=== PATIENT | male | born 1955 | race American Indian/Alaskan Native ===

== ENCOUNTER 2025-01-29 14:43 | Inpatient (IN) | payer OTHER, MEDICARE, SELFPAY ==
--- NOTE | 2025-01-29 14:45 | EKG_ITS ---
[facility] Test Date: 2025-01-29 Pat Name: BART RANDHAWA Department: Room: - Gender: Male Site Auditor: : 1955 Requested By: Taylor Julien Order Number: [id number] Reading MD: Taylor Julien Measurements Intervals [place] Rate: 134 P: 46 CA: 177 QRS: -49 QRSD: 94 T: 81 QT: 276 QTc: 413 Interpretive Statements SINUS TACHYCARDIA LEFT ANTERIOR FASCICULAR BLOCK [QRS AXIS <= -45, QR IN I, RS IN II] INFERIOR MYOCARDIAL INFARCTION , POSSIBLY ACUTE [40+ ms Q WAVE AND/OR ST/T ABNORMALITY IN II/aVF] ACUTE UT Compared to ECG 11/15/2023 08:09:35 Left anterior fascicular block now present Myocardial infarct finding still present /store/S0/[id number].pdf
--- NOTE | 2025-01-29 14:45 | PD.EDADULT ---
ED General RME/HPI General Stated complaint: STROKE Time Seen by Provider: 01/29/25 15:03 Arrival date/time: 01/29/25 14:43 RME / HPI RME / HPI narrative: DR. WALKER MAIN ED EVALUATION: 69 year old male presents to the Emergency Department [facility] from home with complaints of right sided weakness, mild slurred speech, and mild confusion per EMS. Last well known time was 0800 hours today. Per EMS, patient had normal pupils at scene but en route the left pupil got smaller. PMHx: Hypertension, stage 4 prostate cancer. Social Hx: No tobacco, alcohol, or substance use. Related Data Previous Rx's ?Medication ?Instructions ?Recorded aspirin 81 mg tablet,delayed 81 mg PO QDAY 30 days #30 tabs 02/01/25 release (Ecotrin Low Strength) atorvastatin 20 mg tablet 40 mg (2 x 20 mg) PO HS 30 days 02/01/25 #60 tabs gabapentin 400 mg capsule 400 mg PO TID 30 days #90 caps 02/01/25 sevelamer carbonate 800 mg tablet 800 mg PO TIDWM 30 days #90 tabs 02/01/25 vitamin B complex-vitamin C-folic 1 tab PO QDAY 30 days #30 tabs 02/01/25 acid 0.8 mg tablet (Nephro-Tristan) Allergies Allergy/AdvReac Type Severity Reaction Status Date / Time No Known Allergies Allergy Verified 03/17/22 07:04 Review of Systems Review of Systems Systems Reviewed: All systems reviewed, normal except as documented Past Medical History Past Medical History CARDIAC: Positive Hypertension GENITOURINARY: Positive Prostate Cancer and Benign Prostatic Hyperplasia (removed 6 years ago) MUSCULOSKELETAL: Positive Bone Cancer OTHER HISTORY: Positive Cancer and Prostate Cancer Social History SMOKING STATUS: Never smoker SUBSTANCE USE: does not use ALCOHOL: Never ED Exam Narrative Physical exam: GENERAL APPEARANCE: alert and oriented x 4, well-developed, well-nourished, no acute distress, smells like motor oil VITALS: All vitals were reviewed and the pulse ox is 98% on 2 L/min. HEENT: Normocephalic, atraumatic; anisocoria where the left pupil is 3 mm and the right pupil is 1 mm; mucous membranes pink, moist; oropharynx clear NECK: Supple LUNGS: CTABL; no wheezes, no rales, no rhonchi HEART: Regular rate, regular rhythm; normal S1, S2; no murmurs ABDOMEN: non distended; normal BS; soft, no tenderness, no guarding, no rebound; no masses, no organomegaly, no hernia BACK: no CVA tenderness EXTREMITIES: atraumatic; no edema NEUROLOGIC: awake; mild bilateral arm spasticity, difficulty following commands, no facial asymmetry PSYCHIATRIC: appropriate mood and affect SKIN: warm, dry, normal color; no rashes Course Course Course Narrative: 1442: Stroke alert initiated. Orders made at this time are congruent stroke protocol. 1519: Rectal temperature was 105.7 F. Sepsis alert initiated. Orders made at this time are congruent with ED Adult Sepsis Order List. Re-evaluation is to be completed. 1544: Fluids started. 1615: Sepsis reassessment performed consisting of lab review, vitals, physical exam including auscultation of heart, lungs, and visual evaluation of capillary refills, mucosal membranes and extremities. Quality Measures Suspected type of Stroke: Unknown at this time (no stroke, CTs negative) Last known well (date): 01/29/25 Last known well (time): 08:00 Tenecteplase given: Reason(s) TPA not given: Stroke severity too mild (non-disabling) not given stroke and Current suspected stage: sepsis Possible source: unknown Blood cultures ordered: yes Antibiotic ordered: Yes Pertinent labs: 01/29/25 01/29/25 14:50 14:56 Lactic Acid 2.1 H mMol/L (0.4-2.0) Procalcitonin 341.99 H ng/ml (0.0-0.49) sepsis Orders Category Date Time Status Bedside Blood Glucose NOW Care 01/29/25 14:45 Completed Fleece Tier NOW Care 01/29/25 14:45 Completed Continuous Pulse Oximetry NOW Care 01/29/25 14:45 Completed EKG (ED ONLY) *Do not use* NOW Care 01/29/25 14:45 Completed In and Out Catheter NEEDED Care 01/29/25 14:45 Completed Insert IV NOW Care 01/29/25 14:45 Completed NIH Stroke Scale now Care 01/29/25 14:45 Completed NPO NOW Care 01/29/25 14:45 Completed Nurse Swallow Screen x1 Care 01/29/25 14:45 Completed Consult to Neurology / Tele-Neurology Routine Cons 01/29/25 14:[address] angio stroke protocol Stat Exams 01/29/25 14:[address] stroke protocol Stat Exams 01/29/25 14:45 Completed EKG (ED Only) Stat Exams 01/29/25 14:45 Draft XR chest 1V portable Stat Exams 01/29/25 16:07 Completed Alcohol, Blood Medical Stat Lab 01/29/25 14:56 Completed Arterial Blood Gas Stat Lab 01/29/25 17:25 Completed B-Type Natriuretic Peptide Stat Lab 01/29/25 14:56 Completed Blood Culture (Lab) Stat Lab 01/29/25 16:43 Completed CBC Stat Lab 01/29/25 14:56 Completed Comprehensive Metabolic Panel Stat Lab 01/29/25 14:56 Completed Drug Screen,Urine Stat Lab 01/29/25 15:40 Completed Lactate (Lactic Acid) Stat Lab 01/29/25 14:50 Completed Magnesium Stat Lab 01/29/25 14:56 Completed Partial Thromboplastin Time Stat Lab 01/29/25 14:56 Completed Procalcitonin Stat Lab 01/29/25 14:56 Completed Prothrombin Time with INR Stat Lab 01/29/25 14:56 Completed Troponin I Stat Lab 01/29/25 14:56 Completed Urinalysis Stat Lab 01/29/25 15:40 Completed Urine Culture Stat Lab 01/29/25 15:40 Completed Acetaminophen Ivpb [Ofirmev Inj] Med 01/29/25 15:20 Discontinued 1,000 mg in 100 ml IV Q6HR Heparin* 1000 UNITS/ML- 10 ML [Heparin 1000 UNITS/ML- Med 01/29/25 17:01 Discontinued 10 ML] 1,700 unit INDWELLCAT X1 ONE Magnesium Sulfate 2 GM Ivpb [Magnesium Sulfate Ivpb] Med 01/29/25 17:16 Discontinued 2 gm in 50 ml IV X1 Ondansetron Inj [Zofran Inj] Med 01/29/25 14:45 Discontinued 4 mg IVP Q4HR PRN Piper/Tazo 3.375 gm Premix [Zosyn] Med 01/29/25 17:13 Discontinued 3.375 gm in 50 ml IV X1 Sodium Chloride 0.9% 1000 ml [Ns] 1,000 ml Med 01/29/25 15:08 Discontinued IV 999 mls/hr Vancomycin/Ns 1 gm Ivpb 200 ml Med 01/29/25 16:15 Discontinued IV X1 Vancomycin/Water 1Gm Ivpb 200 ml Med 01/29/25 16:08 Discontinued IV X1 Oxygen Delivery NOW RT 01/29/25 14:45 Completed Vital Signs Vital signs: Vital Signs Pulse Rate 122 H 01/29/25 15:48 Respiratory Rate 39 H 01/29/25 15:48 Pulse Oximetry (%) 98 01/29/25 15:48 Oxygen Flow Rate 2 01/29/25 15:48 Critical Care Time Critical Care Time Critical Care Time: Yes Total Critical Care Time (min.): 60 Attestation: The high probability of sudden, clinically significant deterioration in the patient?s condition required the highest level of my preparedness to intervene urgently. The services I provided to this patient were to treat and/or prevent clinically significant deterioration. Services included the following: chart data review, reviewing nursing notes and/or old charts, documentation time, regulatory consultant collaboration regarding findings and treatment options, medication orders and management, direct patient care, vital sign assessments and ordering, interpreting and reviewing diagnostic studies and lab tests. Aggregate critical care time includes only time during which I was engaged in work directly related to the patient?s care, as described above, whether at bedside or elsewhere in the Emergency Department. It did not include time spent performing other reported procedures or the services of residents, students, nurses or physician assistants. Discharge Plan Plan Patient Disposition: Admit Acute Care w/in Hospital Problem List Clinical Impression: Sepsis MDM Narrative MDM hospital course: I, Cee Doshi, am scribing for and in the presence of Dr. Walker. Clinical Information Provided by patient and EMS Medical Records Reviewed EMS Meds/Rx Considered, not Ordered None Labs/Rad/Tests considered, not Ordered None Chronic Illness/Social Conditions Add or document further as needed: Hypertension, stage 4 prostate cancer. EKG Interpretation EKG #1: Date/time of EK01/29/25 3:29 pm EKG interpretation: sinus tachycardia, rate 134, some baseline wander, little artifact, Q waves in 3 and AVF Lab Interpretation Labs: interpreted by me Lab(s) interpretation(s): Patient is septic; Lactic acid 2.1, Procalcitonin 341.99 Imaging Radiology reports / interpretation(s): Procedure(s): CT stroke protocol Accession Number(s): [id number] cc: Adriel Pfeiffer MD; Taylor Walker MD~ Examination: CT brain head without contrast. 2-D sagittal coronal reconstructions Date and time of exam:January 29, 2025 1450 hours INDICATIONS: Stroke alert, onset slurred speech altered mental status left-sided body weakness today COMPARISON: November 15, 2023 CTDI: vol (mGy):50.4 DLP: (mGycm):1061 Technique: Multiple CT axial sections of the brain have been obtained, 5 mm slice thickness. Contrast has not been administered. 2-D sagittal, coronal reconstructions have been obtained Low dose protocols were performed. One or more of the following dose reduction techniques were used; automated exposure control, adjustment of the mA and/or KV according to patient size, use of iterative reconstruction technique. Findings: No significant ventricular enlargement. Intra-axial or extra-axial hemorrhage density is not seen. No mass effect or midline shift Basal cisterns are not remarkable. Fourth ventricle is midline. Cranial vault intact. Impression: Negative for acute hemorrhage, mass effect or midline shift Dictated By: Adriel Pfeiffer MD Procedure(s): CT angio stroke protocol Accession Number(s): [id number] cc: Adriel Pfeiffer MD; Taylor Walker MD~ Examination: CTA carotids with intravenous contrast CTA brain, head with intravenous contrast. 2-D sagittal, coronal reconstructions. 3-D reconstructions. Exam date and time: January 29, 2025 1500 hours INDICATIONS: Stroke alert, onset slurred speech altered mental status left-sided body weakness today CTDI: vol (mGy) 21 DLP: (mGycm) 479 Technique: Multiple CTA axial brain, head carotid images post intravenous contrast injection 75 cc, [id number]. 2-D sagittal, coronal reconstructions. 3-D reconstructions, 3-D post processing including vascular maximum intensity projection images. Low dose protocols were performed. One or more of the following dose reduction techniques were used; automated exposure control, adjustment of the mA and/or KV according to patient size, use of iterative reconstruction technique. Findings: Images are degraded by patient motion Stellate parenchymal density in the left apex, 21 mm, which may represent scar formation Mediolateral dimension ascending thoracic aorta 4 cm Diffusely attenuated right vertebral artery no critical vertebral stenoses No significant common carotid carotid bifurcation or internal carotid artery stenoses No cerebral large vessel arterial occlusions or thrombus IMPRESSION: Stellate parenchymal density left apex 21 mm, recommend PA lateral chest follow-up Diffusely attenuated right vertebral artery no critical vertebral artery stenoses No cerebral large vessel arterial occlusions or thrombus Dictated By: Adriel Pfeiffer MD Medication Administration(s) Medication Administration History Discontinued Medications Acetaminophen (Acetaminophen 325 Mg Tablet) 650 mg PO Q6H PRN PRN Reason: Fever >100.3 or pain 1-3 Stop: 02/28/25 17:41 Last Admin: 02/03/25 17:52 Dose: 650 mg Documented By: Admin: 02/03/25 08:31 Dose: 650 mg Documented By: Admin: 02/03/25 02:08 Dose: 650 mg Documented By: Admin: 02/02/25 15:57 Dose: 650 mg Documented By: Admin: 02/02/25 08:22 Dose: 650 mg Documented By: Admin: 02/01/25 17:24 Dose: 650 mg Documented By: Admin: 01/31/25 12:34 Dose: 650 mg Documented By: Admin: 01/31/25 05:25 Dose: 650 mg Documented By: Admin: 01/30/25 17:15 Dose: 650 mg Documented By: AV Albuterol/Ipratropium (Albuterol/Ipratropium (Duoneb) Rt Karolina 3 Ml Nebu) 3 ml INH Q4HR PRN PRN Reason: SHORTNESS OF BREATH OR WHEEZE Stop: 02/28/25 17:41 Last Admin: 01/30/25 17:18 Dose: 3 ml Documented By: AA Aspirin (Aspirin Ec 81 Mg Tabec) 81 mg PO QDAY JENS Stop: 03/01/25 08:59 Last Admin: 02/07/25 11:27 Dose: 81 mg Documented By: Admin: 02/06/25 10:23 Dose: Not Given Documented By: LEROY Non-Admin Reason: NPO Admin: 02/05/25 09:52 Dose: 81 mg Documented By: Admin: 02/04/25 09:26 Dose: 81 mg Documented By: ATIYA(2) Admin: 02/03/25 08:14 Dose: 81 mg Documented By: Admin: 02/02/25 08:18 Dose: 81 mg Documented By: Admin: 02/01/25 09:25 Dose: 81 mg Documented By: Admin: 01/31/25 08:17 Dose: 81 mg Documented By: Admin: 01/30/25 10:17 Dose: 81 mg Documented By: AV Atorvastatin Calcium (Atorvastatin Calcium 20 Mg Tablet) 40 mg PO HS JENS Stop: 02/28/25 20:59 Last Admin: 02/06/25 21:50 Dose: 40 mg Documented By: Admin: 02/05/25 21:30 Dose: 40 mg Documented By: Admin: 02/04/25 20:45 Dose: 40 mg Documented By: MRWalt Admin: 02/03/25 21:28 Dose: 40 mg Documented By: Admin: 02/02/25 20:25 Dose: 40 mg Documented By: Admin: 02/01/25 21:17 Dose: 40 mg Documented By: (2) Admin: 01/31/25 21:56 Dose: 40 mg Documented By: Admin: 01/30/25 20:30 Dose: 40 mg Documented By: Admin: 01/30/25 00:04 Dose: 40 mg Documented By: PEDRO Atropine Sulfate (Atropine Sulf Inj 1 Mg/Ml Vial) Confirm Administered Dose 1 mg .ROUTE .STK-MED ONE Stop: 02/06/25 13:59 Last Admin: 02/06/25 15:30 Dose: Not Given Documented By: EG Non-Admin Reason: not needed Azithromycin (Azithromycin Inj 500 Mg Vial) Confirm Administered Dose 500 mg IV .STK-MED ONE Stop: 02/02/25 11:28 Last Admin: 02/02/25 12:40 Dose: Not Given Documented By: LH Non-Admin Reason: Duplicate Medication on eMAR Bismuth Subsalicylate (Bismuth Subsalicyl 1 Tablet (Pepto-Bismol)) 2 tab PO QDAY JENS Stop: 03/09/25 08:59 Last Admin: 02/07/25 11:28 Dose: 2 tab Documented By: KYLER Bismuth Subsalicylate (Bismuth Subsalicyl 1 Tablet (Pepto-Bismol)) 2 tab PO X1 ONE Stop: 02/06/25 10:26 Last Admin: 02/06/25 16:24 Dose: 2 tab Documented By: LEROY Citric Acid/Sodium Citrate (Citric Acid/Sodium Citr 15 Ml Udc (Bicitra)) 30 ml PO BID JENS Stop: 03/01/25 08:59 Last Admin: 02/07/25 10:56 Dose: Not Given Documented By: KYLER Non-Admin Reason: In HD; scheduled BID Admin: 02/06/25 21:50 Dose: 30 ml Documented By: Admin: 02/06/25 10:23 Dose: Not Given Documented By: LEROY Non-Admin Reason: NPO Admin: 02/05/25 21:31 Dose: 30 ml Documented By: Admin: 02/05/25 09:52 Dose: 30 ml Documented By: Admin: 02/04/25 20:45 Dose: 30 ml Documented By: Admin: 02/04/25 09:26 Dose: 30 ml Documented By: ATIYA(2) Admin: 02/03/25 21:28 Dose: 30 ml Documented By: Admin: 02/03/25 08:14 Dose: 30 ml Documented By: Admin: 02/02/25 20:25 Dose: 30 ml Documented By: Admin: 02/02/25 08:17 Dose: 30 ml Documented By: Admin: 02/01/25 21:17 Dose: 30 ml Documented By: (2) Admin: 02/01/25 09:24 Dose: 30 ml Documented By: Admin: 01/31/25 21:57 Dose: 30 ml Documented By: Admin: 01/31/25 08:23 Dose: 30 ml Documented By: Admin: 01/30/25 20:29 Dose: 30 ml Documented By: Admin: 01/30/25 10:16 Dose: 30 ml Documented By: LEI Comments: patient was lethargic in am Epoetin Afshin (Epoetin Afshin-Epbx Inj 10,000 Unit/Ml Vial (Esrd)) 10,000 unit SC X1 ONE Stop: 02/04/25 09:01 Last Admin: 02/04/25 09:33 Dose: 10,000 unit Documented By: ED Epoetin Afshin (Epoetin Afshin-Epbx Inj 10,000 Unit/Ml Vial (Non-Esrd)) 10,000 unit IV X1 ONE Stop: 02/07/25 09:01 Last Admin: 02/07/25 08:37 Dose: 10,000 unit Documented By: ED Fentanyl Citrate (Fentanyl Cit Inj 50 Mcg/Ml Amp 2ml) Confirm Administered Dose 100 mcg .ROUTE .STK-MED ONE Stop: 02/06/25 13:59 Last Admin: 02/06/25 15:31 Dose: Not Given Documented By: EG Non-Admin Reason: Duplicate Medication on eMAR Fentanyl Citrate (Fentanyl Cit Inj 50 Mcg/Ml Amp 2ml) 75 mcg IVP X1 ONE Stop: 02/06/25 14:31 Last Admin: 02/06/25 14:39 Dose: 75 mcg Documented By: EG Comments: see procedural sedation flow sheet for increments. under md supervision Fluconazole (Fluconazole 100 Mg Tablet) 400 mg PO QDAY [facility] Stop: 02/06/25 15:29 Last Admin: 02/01/25 09:25 Dose: 400 mg Documented By: Admin: 01/31/25 08:17 Dose: 400 mg Documented By: Admin: 01/30/25 17:10 Dose: 400 mg Documented By: AV Fluconazole (Fluconazole 100 Mg Tablet) 400 mg PO TUTHSA@1800 [facility] Stop: 02/09/25 17:59 Last Admin: 02/02/25 17:41 Dose: 400 mg Documented By: LH Fluconazole (Fluconazole 100 Mg Tablet) 400 mg PO Q24H [facility] Stop: 02/10/25 17:59 Last Admin: 02/03/25 17:52 Dose: 400 mg Documented By: LH Gabapentin (Gabapentin 100 Mg Capsule) 400 mg PO TID [facility] Stop: 02/28/25 21:59 Last Admin: 01/30/25 05:15 Dose: 400 mg Documented By: Admin: 01/30/25 00:04 Dose: 400 mg Documented By: CG Gabapentin 100 mg/ Gabapentin (300 mg) 400 mg PO TID [facility] Stop: 02/28/25 21:59 Last Admin: 02/04/25 05:23 Dose: 400 mg Documented By: MRWalt Admin: 02/03/25 21:28 Dose: 400 mg Documented By: Admin: 02/03/25 16:20 Dose: 400 mg Documented By: Admin: 02/03/25 05:35 Dose: 400 mg Documented By: Admin: 02/02/25 22:01 Dose: 400 mg Documented By: Admin: 02/02/25 15:55 Dose: 400 mg Documented By: Admin: 02/02/25 05:11 Dose: 400 mg Documented By: SA(2) Admin: 02/01/25 21:17 Dose: 400 mg Documented By: SA(2) Admin: 02/01/25 13:35 Dose: 400 mg Documented By: Admin: 02/01/25 05:17 Dose: 400 mg Documented By: Admin: 01/31/25 21:57 Dose: 400 mg Documented By: Admin: 01/31/25 15:21 Dose: 400 mg Documented By: LEI Comments: patient refused at 2pm, states that he wants to sleep Admin: 01/31/25 05:26 Dose: 400 mg Documented By: Admin: 01/30/25 22:13 Dose: 400 mg Documented By: Admin: 01/30/25 17:11 Dose: 400 mg Documented By: LEI Gabapentin (Gabapentin 100 Mg Capsule) 200 mg PO TID JENS Stop: 03/06/25 13:59 Gabapentin (Gabapentin 300 Mg Capsule) 300 mg PO DAILY [facility] Stop: 03/07/25 16:59 Gabapentin (Gabapentin 100 Mg Capsule) 400 mg PO TID JENS Stop: 03/07/25 05:59 Last Admin: 02/07/25 05:36 Dose: 400 mg Documented By: Admin: 02/06/25 21:50 Dose: 400 mg Documented By: Admin: 02/06/25 16:20 Dose: Not Given Documented By: LEROY Non-Admin Reason: Not In Room Admin: 02/06/25 08:39 Dose: Not Given Documented By: LEROY Non-Admin Reason: NPO Admin: 02/05/25 21:30 Dose: 400 mg Documented By: Admin: 02/05/25 14:01 Dose: 400 mg Documented By: Admin: 02/05/25 05:27 Dose: 400 mg Documented By: SANDIE Heparin Sodium (Beef Lung) (Heparin Sod Lock Syr 100 Unit/Ml) Confirm Administered Dose 500 unit .ROUTE .STK-MED ONE Stop: 02/06/25 14:23 Last Admin: 02/06/25 15:31 Dose: Not Given Documented By: EG Non-Admin Reason: Duplicate Medication on eMAR Heparin Sodium (Beef Lung) (Heparin Sod Lock Syr 100 Unit/Ml) 500 unit IV X1 ONE Stop: 02/06/25 14:31 Last Admin: 02/06/25 14:38 Dose: 500 unit Documented By: EG Comments: to sterile field Heparin Sodium (Porcine) (Heparin Sod Inj 1000 Unit/Ml Vial 10 Ml) 1,700 unit INDWELLCAT X1 ONE Stop: 01/29/25 17:02 Last Admin: 01/29/25 18:10 Dose: 1,700 unit Documented By: RD Co-signed By: DB Heparin Sodium (Porcine) (Heparin Sod Inj 5000 Unit/Ml Vial) 5,000 unit SC BID JENS Stop: 02/12/25 20:59 Last Admin: 01/30/25 00:04 Dose: 5,000 unit Documented By: CG Co-signed By: CB Heparin Sodium (Porcine) (Heparin Sod Inj 1000 Unit/Ml Vial 10 Ml) 3,300 unit INDWELLCAT X1 PRN PRN Reason: DIALYSIS Stop: 02/13/25 15:11 Last Admin: 02/01/25 09:27 Dose: 3,300 unit Documented By: MM Co-signed By: CS Admin: 01/31/25 11:06 Dose: 3,300 unit Documented By: MM Co-signed By: AV Heparin Sodium (Porcine) (Heparin Sod Inj 1000 Unit/Ml Vial) Confirm Administered Dose 5,000 unit .ROUTE .STK-MED ONE Stop: 02/06/25 14:23 Last Admin: 02/06/25 15:31 Dose: Not Given Documented By: EG Non-Admin Reason: Duplicate Medication on eMAR Heparin Sodium (Porcine) (Heparin Sod Inj 1000 Unit/Ml Vial) 4,400 unit INDWELLCAT X1 ONE Stop: 02/06/25 15:21 Last Admin: 02/06/25 15:39 Dose: 4,400 unit Documented By: EG Co-signed By: LS Heparin Sodium (Porcine) (Heparin Sod Inj 1000 Unit/Ml Vial 10 Ml) 4,400 unit INDWELLCAT X1 PRN PRN Reason: DIALYSIS Stop: 02/21/25 10:10 Hydromorphone HCl (Hydromorphone Inj 2 Mg/Ml Vial) 0.25 mg IVP Q2H PRN PRN Reason: BREAKTHROUGH PAIN Stop: 02/03/25 17:41 Last Admin: 01/30/25 20:43 Dose: 0.25 mg Documented By: Admin: 01/29/25 19:08 Dose: 0.25 mg Documented By: LESLY Hydromorphone HCl (Hydromorphone Inj 2 Mg/Ml Vial) 0.25 mg IVP Q4H PRN PRN Reason: BREAKTHROUGH PAIN Stop: 02/03/25 17:41 Sodium Chloride (Ns) 1,000 mls @ 999 mls/hr IV .Q1H1M ONE Stop: 01/29/25 16:08 Last Infusion: 01/29/25 16:46 Dose: Infused Documented By: Admin: 01/29/25 15:44 Dose: 999 mls/hr Documented By: JACQUELINE Acetaminophen (Ofirmev Inj) 1,000 mg in 100 mls @ 250 mls/hr IV Q6HR JENS Stop: 01/30/25 06:23 Last Admin: 01/30/25 05:15 Dose: 250 mls/hr Documented By: Infusion: 01/30/25 00:38 Dose: Infused Documented By: Admin: 01/30/25 00:14 Dose: 250 mls/hr Documented By: Infusion: 01/29/25 20:03 Dose: Infused Documented By: Admin: 01/29/25 19:08 Dose: 250 mls/hr Documented By: Infusion: 01/29/25 16:15 Dose: Infused Documented By: Admin: 01/29/25 15:41 Dose: 250 mls/hr Documented By: JACQUELINE Vancomycin HCl (Vancomycin/Water 1gm Ivpb) 200 mls @ 120 mls/hr IV X1 ONE Stop: 01/29/25 17:47 Last Admin: 01/29/25 18:11 Dose: Not Given Documented By: LESLY Non-Admin Reason: Cancelled by Provider Vancomycin/Sodium Chloride (Vancomycin/Ns 1 Gm Ivpb) 200 mls @ 120 mls/hr IV X1 ONE Stop: 01/29/25 17:54 Last Admin: 01/29/25 20:02 Dose: Not Given Documented By: LESLY Non-Admin Reason: Medication Not Available Piperacillin/Tazobactam/Dextrose (Zosyn) 3.375 gm in 50 mls @ 100 mls/hr IV X1 ONE Stop: 01/29/25 17:42 Last Infusion: 01/29/25 19:00 Dose: Infused Documented By: Admin: 01/29/25 18:10 Dose: 100 mls/hr Documented By: LESLY Magnesium Sulfate (Magnesium Sulfate Ivpb) 2 gm in 50 mls @ 25 mls/hr IV X1 ONE Stop: 01/29/25 19:15 Last Admin: 01/29/25 21:46 Dose: 25 mls/hr Documented By: CG Vancomycin/Sodium Chloride (Vancomycin/Ns 1 Gm Ivpb) 200 mls @ 120 mls/hr IV X1 ONE Stop: 01/30/25 11:39 Last Admin: 01/30/25 10:48 Dose: 120 mls/hr Documented By: AV Sodium Chloride (Ns) 250 mls @ 999 mls/hr IV .Q16M ONE Stop: 01/30/25 08:24 Last Admin: 01/30/25 08:10 Dose: 999 mls/hr Documented By: AV Piperacillin Sod/Tazobactam (Sod 4.5 gm/ Sodium Chloride) 100 mls @ 200 mls/hr IV Q12HR JENS Stop: 02/06/25 08:09 Last Admin: 01/31/25 21:58 Dose: 200 mls/hr Documented By: Infusion: 01/31/25 13:11 Dose: Infused Documented By: Admin: 01/31/25 12:41 Dose: 200 mls/hr Documented By: Infusion: 01/30/25 20:59 Dose: Infused Documented By: Admin: 01/30/25 20:29 Dose: 200 mls/hr Documented By: Infusion: 01/30/25 09:20 Dose: Infused Documented By: Admin: 01/30/25 08:50 Dose: 200 mls/hr Documented By: AV Sodium Chloride (Ns) 250 mls @ 999 mls/hr IV .Q16M ONE Stop: 01/30/25 08:59 Last Admin: 01/30/25 08:50 Dose: 999 mls/hr Documented By: AV Albumin Human (Albuminar-25 Ivpb) 25 gm in 100 mls @ 100 mls/hr IV PRN PRN PRN Reason: DIALYSIS Last Admin: 01/31/25 08:06 Dose: 100 mls/hr Documented By: Infusion: 01/30/25 16:18 Dose: Infused Documented By: Admin: 01/30/25 15:18 Dose: 100 mls/hr Documented By: ED Lactated Ringer's (Lactated Ringers) 1,000 mls @ 999 mls/hr IV .Q1H1M ONE Stop: 01/30/25 11:47 Last Admin: 01/30/25 10:49 Dose: 999 mls/hr Documented By: AV Ceftriaxone Sodium/Dextrose (Rocephin/D5w 2gm) 2 gm in 50 mls @ 100 mls/hr IV QDAY JENS Stop: 02/08/25 08:59 Last Admin: 02/02/25 10:49 Dose: 100 mls/hr Documented By: Infusion: 02/01/25 20:00 Dose: Infused Documented By: (2) Admin: 02/01/25 09:25 Dose: 100 mls/hr Documented By: CS Azithromycin 500 mg/ Sodium (Chloride) 250 mls @ 250 mls/hr IV QDAY JENS Stop: 02/09/25 09:43 Last Admin: 02/03/25 10:24 Dose: 250 mls/hr Documented By: Infusion: 02/02/25 12:40 Dose: Infused Documented By: Admin: 02/02/25 11:40 Dose: 250 mls/hr Documented By: THOMAS Piperacillin/Tazobactam/Dextrose (Zosyn) 3.375 gm in 50 mls @ 12.5 mls/hr IV Q12HR JENS Stop: 02/09/25 20:59 Last Admin: 02/03/25 08:14 Dose: 12.5 mls/hr Documented By: Infusion: 02/03/25 00:26 Dose: Infused Documented By: Admin: 02/02/25 20:26 Dose: 12.5 mls/hr Documented By: Piperacillin/Tazobactam/Dextrose (Zosyn) 3.375 gm in 50 mls @ 100 mls/hr IV X1 ONE Stop: 02/02/25 15:59 Last Admin: 02/02/25 15:55 Dose: 100 mls/hr Documented By: THOMAS Ceftriaxone Sodium/Dextrose (Rocephin/D5w 2gm) 2 gm in 50 mls @ 100 mls/hr IV Q24H [facility] Stop: 02/10/25 17:59 Last Admin: 02/05/25 17:09 Dose: 100 mls/hr Documented By: Infusion: 02/04/25 17:53 Dose: Infused Documented By: Admin: 02/04/25 17:23 Dose: 100 mls/hr Documented By: ATIYA(2) Infusion: 02/03/25 18:23 Dose: Infused Documented By: ATIYA(2) Admin: 02/03/25 17:53 Dose: 100 mls/hr Documented By: THOMAS Levofloxacin (Levofloxacin 250 Mg Tablet) 250 mg PO QDAY [facility] Stop: 02/11/25 12:00 Last Admin: 02/07/25 11:28 Dose: 250 mg Documented By: KYLER Lidocaine HCl (Lidocaine Inj Pf 1% 30 Ml Vial) Confirm Administered Dose 30 ml .ROUTE .STK-MED ONE Stop: 02/06/25 13:58 Last Admin: 02/06/25 15:30 Dose: Not Given Documented By: EG Non-Admin Reason: Duplicate Medication on eMAR Lidocaine HCl (Lidocaine Inj Pf 1% 30 Ml Vial) 10 ml INFL X1 ONE Stop: 02/06/25 14:31 Last Admin: 02/06/25 14:40 Dose: 10 ml Documented By: EDDIE Comments: administered by dr. pfeiffer Naloxone HCl (Naloxone Inj 0.4 Mg/Ml Vial) Confirm Administered Dose 0.4 mg .ROUTE .STK-MED ONE Stop: 02/06/25 13:59 Last Admin: 02/06/25 15:31 Dose: Not Given Documented By: EG Non-Admin Reason: not needed Ondansetron HCl (Ondansetron Inj 2 Mg/Ml Inj 2 Ml) 4 mg IVP Q4HR PRN PRN Reason: NAUSEA OR VOMITING Stop: 02/28/25 14:44 Last Admin: 01/29/25 19:07 Dose: 4 mg Documented By: LESLY Ondansetron HCl (Ondansetron Inj 2 Mg/Ml Inj 2 Ml) Confirm Administered Dose 4 mg .ROUTE .STK-MED ONE Stop: 02/06/25 13:59 Last Admin: 02/06/25 15:31 Dose: Not Given Documented By: EG Non-Admin Reason: not needed Pharmacy Consult (Pharmacy To Consult Patient) 1 each XX QDAY PRN PRN Reason: CONSULT Stop: 02/28/25 17:59 Pharmacy Consult (Vancomycin Pharmacy To Dose 1 Each Each) 1 each IV QDAY PRN PRN Reason: CONSULT Stop: 03/01/25 08:59 Sevelamer Carbonate (Sevelamer Carbonate 800 Mg Tablet) 800 mg PO TIDWM [facility] Stop: 03/01/25 07:59 Last Admin: 02/07/25 11:28 Dose: 800 mg Documented By: Admin: 02/07/25 07:51 Dose: Not Given Documented By: KYLER Non-Admin Reason: pt off unit to HD Admin: 02/06/25 17:30 Dose: 800 mg Documented By: Admin: 02/06/25 13:13 Dose: Not Given Documented By: LEROY Non-Admin Reason: NPO Admin: 02/06/25 08:38 Dose: Not Given Documented By: LEROY Non-Admin Reason: NPO Admin: 02/05/25 17:09 Dose: 800 mg Documented By: Admin: 02/05/25 11:33 Dose: 800 mg Documented By: Admin: 02/05/25 09:52 Dose: 800 mg Documented By: Admin: 02/04/25 17:23 Dose: 800 mg Documented By: CS(2) Admin: 02/04/25 12:30 Dose: 800 mg Documented By: CS(2) Admin: 02/04/25 09:26 Dose: 800 mg Documented By: CS(2) Admin: 02/03/25 17:53 Dose: 800 mg Documented By: Admin: 02/03/25 12:36 Dose: 800 mg Documented By: Admin: 02/03/25 08:14 Dose: 800 mg Documented By: Admin: 02/02/25 17:42 Dose: 800 mg Documented By: Admin: 02/02/25 12:43 Dose: 800 mg Documented By: Admin: 02/02/25 08:18 Dose: 800 mg Documented By: Admin: 02/01/25 17:24 Dose: 800 mg Documented By: Admin: 02/01/25 12:31 Dose: 800 mg Documented By: Admin: 02/01/25 09:24 Dose: 800 mg Documented By: ATIYA Comments: Late due to dialysis Admin: 01/31/25 18:01 Dose: 800 mg Documented By: Admin: 01/31/25 12:34 Dose: 800 mg Documented By: Admin: 01/31/25 08:17 Dose: 800 mg Documented By: Admin: 01/30/25 17:11 Dose: 800 mg Documented By: Admin: 01/30/25 13:04 Dose: 800 mg Documented By: Admin: 01/30/25 10:17 Dose: 800 mg Documented By: AV Sevelamer Carbonate (Sevelamer Carbonate 800 Mg Tablet) 800 mg PO X1 ONE Stop: 01/30/25 07:34 Last Admin: 01/30/25 10:17 Dose: Not Given Documented By: AV Non-Admin Reason: Duplicate Medication on eMAR Sodium Bicarbonate (Sodium Bicarb Inj 8.4% 1 Meq/Ml 50 Ml Vial) 25 meq IV X1 ONE Stop: 01/29/25 20:27 Last Admin: 01/29/25 21:46 Dose: 25 meq Documented By: CG Comments: given over 2 min Vitamin B Complex/Vit C/Folic Acid (Vit B12/Vit C/Fa (Nephrovite) Tablet) 1 tab PO QDAY [facility] Stop: 03/01/25 08:59 Last Admin: 02/07/25 11:28 Dose: 1 tab Documented By: Admin: 02/06/25 10:23 Dose: Not Given Documented By: LEROY Non-Admin Reason: NPO Admin: 02/05/25 09:52 Dose: 1 tab Documented By: Admin: 02/04/25 09:26 Dose: 1 tab Documented By: ATIYA(2) Admin: 02/03/25 08:14 Dose: 1 tab Documented By: Admin: 02/02/25 08:18 Dose: 1 tab Documented By: Admin: 02/01/25 09:24 Dose: 1 tab Documented By: Admin: 01/31/25 08:17 Dose: 1 tab Documented By: Admin: 01/30/25 10:17 Dose: 1 tab Documented By: LEI Consultations/Discussions re: Management Consult #1: Date/time: 01/29/25 4:08 pm Physician, specialty, service, details: Discussed test HPI, PMHx, lab, radiology results and/or management with resident Dr. Farah working with the hospitalist. Will admit for further evaluation and management. Accepts patient for admission. Diagnosis Differential diagnosis: TIA, CVA, sepsis Most likely dx, and/or detailed dx discussion: Sepsis Dispositon Disposition: Admit
[2025-01-29 15:15] LABS: Basophils % (Auto) 0 % (0-2.5); Eosinophils % (Auto) 0 % (0-10); Hematocrit 37.4 % (41.0-53.0); Hemoglobin 12.8 g/dL (13.5-16.0); Immature Granulocytes % (Auto) 3 % (0-0); Immature Granulocytes Auto 0.07 Thou/mm3 (0.00-0.00); Lymphocytes # (Auto) 0.3 Thou/mm3 (1.0-4.8); Lymphocytes % (Auto) 12 % (10-50); Mean Corpuscular HGB Conc 34.2 g/dl (31.0-37.0); Mean Corpuscular Volume 91 fL (80-100); Monocytes # (Auto) 0.2 Thou/mm3 (0.0-0.8); Monocytes % (Auto) 6 % (0-12); Neutrophils % (Auto) 79 % (37-80); Nucleated Red Blood Cell % 0 /100 WBC (0); Platelet Count 54 Thou/mm3 (140-440); RDW Standard Deviation 55.8 fL (35.1-43.9); Red Blood Count 4.13 Miln/mm3 (4.50-5.90)
[2025-01-29 15:20] LABS: Lactate (Lactic Acid) 2.1 mMol/L (0.4-2.0)
[2025-01-29 15:24] LABS: White Blood Count 2.5 Thou/mm3 (3.8-10.6)
--- NOTE | 2025-01-29 15:24 | ESCONSULT_ITS ---
Tele Neuro Consultation Consultation Date 01/29/25 Consultation Narrative [facility] Tele[facility]urology Consult Services Patient Name:???BART RANDHAWA Date of :???1955 Date of Service:???01/29/2025 14:45:36 Diagnosis:?G93.49 - Encephalopathy Multifactorial Impression: ?Mr. Randhawa appears to be encephalopathic with tachypnea and tachycardia in the setting of chemotherapy raising the concern for sepsis/infectious etiology. He is outside the thrombolytic time window but I agreed to proceed with CTA because of his profound aphasia. In case there is a component of ischemia he may start aspirin 81mg until the etiology is clear. Our recommendations are outlined below. Recommendations: ? Stroke/Telemetry Floor ? Neuro Checks (Q2) ? Bedside Swallow Eval ? DVT Prophylaxis ? IV Fluids, Normal Saline ? Head of Bed 30 Degrees ? Euglycemia and Avoid Hyperthermia (PRN Acetaminophen) ? Initiate or continue Aspirin 81 MG daily Sign Out: ? Discussed with Emergency Department Provider Advanced Imaging: Advanced imaging has been ordered. Results pending. Metrics: Last Known Well: 01/29/2025 08:30:00 Dispatch Time: 01/29/2025 14:45:36 Arrival Time: 01/29/2025 14:40:00 Initial Response Time: 01/29/2025 14:49:51Symptoms: difficulty talking and weakness. Initial patient interaction: 01/29/2025 15:00:00 NIHSS Assessment Completed: 01/29/2025 15:07:17Patient is not a candidate for Thrombolytic. Thrombolytic Medical Decision: 01/29/2025 15:07:47Patient was not deemed candidate for Thrombolytic because of following reasons: LKW outside 4.[address] Head: I personally reviewed all the CT images that were available to me and it showed: no ICH or mass or hydrocephalus Primary Provider Notified of Diagnostic Impression and Management Plan on: 01/29/2025 15:17:52 History of Present Illness:Patient is a 69 year old Male. Patient was brought by EMS for symptoms of difficulty talking and weakness. 69 year old man with prostate cancer undergoing chemotherapy and ESRD on HD presents with recent syncopal episodes throughout last night and then developed aphasia symptoms today. The family reported to EMS that the LSN was 830 this morning. He was tachypneic and required supplemental oxygen. Past Medical History: ?Hypertension ?There is no history of Stroke Other PMH:? active prostate cancer ?ESRD on HD Medications: No Anticoagulant use? No Antiplatelet use Reviewed EMR for current medications Allergies:? NKDA Social History: Smoking: No Drug Use: No Family History: There is no family history of premature cerebrovascular disease pertinent to this consultation ROS : 14 Points Review of Systems was performed and was negative except mentioned in HPI. Past Surgical History: There Is No Surgical History Contributory To Today?s Visit Examination: BP(166/90),?Pulse(140),?Blood Glucose(120) 1A: Level of Consciousness - Alert; keenly responsive?+ 0 1B: Ask Month and Age - Aphasic?+ 2 1C: Blink Eyes & Squeeze Hands - Performs 0 Tasks?+ 2 2: Test Horizontal Extraocular Movements - Normal?+ 0 3: Test Visual Bernstein - No Visual Loss?+ 0 4: Test Facial Palsy (Use Grimace if Obtunded) - Normal symmetry?+ 0 5A: Test Left Arm Motor Drift - Drift, hits bed?+ 2 5B: Test Right Arm Motor Drift - Drift, hits bed?+ 2 6A: Test Left Leg Motor Drift - Drift, hits bed?+ 2 6B: Test Right Leg Motor Drift - Drift, hits bed?+ 2 7: Test Limb Ataxia (FNF/Heel-Acosta) - No Ataxia?+ 0 8: Test Sensation - Normal; No sensory loss?+ 0 9: Test Language/Aphasia - Mute/Global Aphasia: No Usable Speech/Auditory Comprehension?+ 3 10: Test Dysarthria - Mute/Anarthric?+ 2 11: Test Extinction/Inattention - No abnormality?+ 0 NIHSS Score:?17 Pre-Morbid Modified [place] Scale:1 Points = No significant disability despite symptoms; able to carry out all usual duties and activities Spoke with :?Dr Walker This consult was conducted in real time using interactive audio and video technology. Patient was informed of the technology being used for this visit and agreed to proceed. Patient located in hospital and provider located at home/office setting. Patient is being evaluated for possible acute neurologic impairment and high probability of imminent or life-threatening deterioration. I spent total of 35 minutes providing care to this patient, including time for face to face visit via telemedicine, review of medical records, imaging studies and discussion of findings with providers, the patient and/or family. Dr Lito Guerrero [facility] For Inpatient follow-up with [facility] physician please call [facility] at . As we are not an outpatient service for any post hospital discharge needs please contact the hospital for assistance. If you have any questions for the [facility] physicians or need to reconsult for clinical or diagnostic changes please contact us via [facility] at .
--- NOTE | 2025-01-29 15:28 | PC.NURSE ---
Support Coordinator: was with patient during CT scan. Noted pt to have HR 140, RR 40, O2 sats on RA = 89-90%, on 6 liters = 96%. Pt shivering and feels hot to the touch, though EMS states po temp was normal. Pt does not seem to comprehend commands and neuro was not able to complete exam for this reason. Concerned for sepsis - called ED provider and communicated VS, and this concern. Stated she would add a sepsis work up, also communicated this concern to chargeback analyst.
[2025-01-29 15:31] LABS: B-Type Natriuretic Peptide 323 pg/mL (0-100)
[2025-01-29 15:32] LABS: INR 1.1 (0.9-1.3); Partial Thromboplastin Time 28.2 Seconds (22.0-36.0); Prothrombin Time 11.7 Seconds (9.0-12.2)
[2025-01-29] MEDS: ACETAMINOPHEN IVPB 1,000 MG/100 ML VIAL 250 MG IV ×2 (15:41→19:08)
[2025-01-29 15:42] LABS: Alanine Aminotransferase 7 U/L (10-49); Albumin/Globulin Ratio 1.3 (1.2-2.2); Alcohol, Blood Medical < 10.0 mg/dL (0-10.0); Alkaline Phosphatase 77 U/L (46-116); Anion Gap 13 (7-16); Aspartate Amino Transferase 27 U/L (0-34); BUN/Creatinine Ratio 9 Ratio (12-20); Bilirubin,Total 0.4 mg/dL (0.3-1.2); Blood Urea Nitrogen 52 mg/dL (9-23); Calcium 8.6 mg/dL (8.3-10.6); Calcium (Corrected) 8.6 mg/dL (8.5-10.1); Carbon Dioxide 18.3 mMol/L (20.0-31.0); Chloride 105 mMol/L (98-107); Creatinine (Component) 5.7 mg/dL (0.6-1.3); Glucose 107 mg/dL (74-106); Magnesium 1.3 mg/dL (1.6-2.6); Osmolality,Calculated 285 (275-295); Potassium 5.1 mMol/L (3.4-5.1); Sodium 136 mMol/L (136-145); eGFR 10 See Note
[2025-01-29] MEDS: SODIUM CHLORIDE 0.9% 1000 ML 1,000 ML 999 ML IV (15:44)
[2025-01-29 15:48] VITALS: PULSE 122; PULSE 131; RESP 39; RESP 90; O2SAT 98
[2025-01-29 15:48] LABS: Troponin I 0.075 ng/mL (0.0-0.045)
[2025-01-29 15:54] LABS: Collection Type, Urine Clean Catch; Squamous Epithelial Cell,Urine 0 /hpf (0-5)
[2025-01-29 15:55] LABS: Slide Review Platelets confirmed
[2025-01-29 15:57] VITALS: BMI 23.6
--- NOTE | 2025-01-29 16:07 | XR_ITS ---
Exam dictation examination: AP chest single view TECHNIQUE: AP portable semiupright chest single view Date and time: January 29, 2025 1623 hours Comparison December 14, 2023 INDICATIONS: Fever today. FINDINGS: Mild prominence left ventricle. Moderate vascular congestion. No lobar pneumonia. Right internal jugular dialysis catheter tips right atrium IMPRESSION: Moderate vascular congestion. No lobar pneumonia
[2025-01-29 16:08] LABS: Amphetamine/Methamp Scrn,U Negative (Negative); Barbiturate Screen,Urine Negative (Negative); Benzodiazepines Screen,Urine Negative (Negative); Benzoylecgonine Screen, Ur Negative (Negative); Fentanyl Screen,Urine Negative (Negative); Opiate Screen,Urine Negative (Negative); THC Screen,Urine Negative (Negative)
[2025-01-29 16:09] LABS: Procalcitonin 341.99 ng/ml (0.0-0.49)
[2025-01-29 16:14] LABS: Bacteria,Urine Rare; Bilirubin,Urine Negative (Negative); Blood,Urine 3+ (Negative); Color,Urine Lt-Brown (Lt Yel-Yel); Glucose, Urine Trace (Negative); Ketones,Urine Negative (Negative); Leukocyte Esterase,Urine Negative (Negative); Nitrite,Urine Negative (Negative); Protein,Urine 2+ (Neg - Trace); RBC,Urine 991 /hpf (0-3); Specific Gravity,Urine 1.021 (1.001-1.035); Urobilinogen,Urine Negative mg/dL (0.0-1.0); WBC,Urine 1 /hpf (0-5)
[2025-01-29 16:41] LABS: Clarity,Urine Hazy (Clear/Hazy)
--- NOTE | 2025-01-29 16:58 | PC.CC ---
ROBERT Joshi completed a phone call initial assessment with the daughter, who is the decision maker, Rachel Hermosillo [phone]. Pt was not coherent, unable to speak and was viewed to be nervous. Therefore, ASW contacted Rachel to complete the initial assessment. Per Rachel, the pts PCP is Andre Chow at [facility]. Pts specialities are Dr. Meraz for Cardiology, Dr. Moncada for Oncology at [facility], Dr. Gotti for Nephrology. Rachel stated the pt is in stage 4 cancer (prostate and bone) and is receiving chemo and is on dialysis. Rachel reported the pt has ongoing health issues specifically with UTIs and Bladder issues. Pt does his own ADLs when he is feeling good. He will bathe himself, cook, clean when he is feeling well. However, when he is not feeling well, his son Petey Hermosillo Jr and the pts sister will cook, clean and assist with changing his Depends and bathing. Pt uses DME and has a rollator at home. Pt does not use O2 at home. Pt does not have Home Health and is not on Hospice care. Pt is a Full Code, no Power of Baby Registry Sales Consultant in place and no POLST in place. Pt receives dialysis at [facility] in [place] on [address], three times a week on Tuesday, , and Saturdays. Rachel reported the pt missed diaylsis on Tuesday and today (Tuesday). Rachel reported that if the suggestion or recommendation would be to go to a SNF, the family would decline and would rather have the pt come home. Rachel is open for Home health for the pt, if that is recommended. Rachel reported the pt is okay with blood transfusions. Rolling Machine Operator spoke with the son Petey Hermosillo Jr who also reported that the daughter Rachel Hermosillo is the Decision Maker if the pt is no longer able to make decisions on his own. PCP: Andre Chow at [facility] Specialists: Dr. Meraz for Cardiology, Dr. Moncada for Oncology at [facility], Dr. Gotti for Nephrology. Dialysis: [facility] in [place] on [address] DME: rollator, does own ADLs when he is feeling well. Decision Maker: Rachel Hermosillo [phone]
--- NOTE | 2025-01-29 17:17 | ESHP_ITS ---
Addendum History & Physical Addendum Date of report being addended: 01/29/25 Narrative: Attending's attestation: I reviewed labs, imaging, EKG, home medications and prior available records. Face to face evaluation was performed by me. I have personally examined the patient and discussed assessment and plan with the IM team. I reviewed the resident note and agree with the plan with exceptions as below. 69-year-old male with history of essential hypertension, prostate cancer with me tastases on Xtandi, and ESRD on hemodialysis via right upper chest dialysis line, who presented with a chief complaint of altered mental status and aphasia happen in the morning of the day of admission. Symptoms improved at the time of my evaluation as per granddaughter. Patient is febrile. He is tachypneic and hypertensive. Labs showed pancytopenia. Troponin is mildly elevated. CT head and CTA of head/neck are negative. Teleneurology was consulted and recommended aspirin Plan: Acute encephalopathy Acute febrile illness Possible sepsis: Source is unclear but can be line associated infection ESRD on hemodialysis Pancytopenia Elevated troponin/type II non-STEMI, likely demand ischemia in setting of acute febrile illness Plan: Empiric treatment with IV vancomycin for possible dialysis line associated infection Follow-up UA Follow-up chest x-ray Follow-up urine and blood cultures Trend troponin until it peaks Tylenol as needed for fevers Consulted inpatient neurology Consulted nephrology for hemodialysis Monitor CBC given the pancytopenia
[2025-01-29 17:29] LABS: Base Excess -10 (-3-3); HCO3 15 mEq/L (20-26); O2 Saturation 97 % (91-98); PCO2 31 mmHg (32.0-48.0); PO2 91 mmHg (83-108)
[2025-01-29 17:30] LABS: Allen Test Not Performed; Inspired O2, VO2 Liters 2 L/min; Puncture Site Right Brachial
--- NOTE | 2025-01-29 17:52 | ESHP_ITS ---
Documentation for date of: 01/29/25 HPI History of Present Illness Chief complaint: Confusion, Falls History of present illness: HPI: Patient seen at bedside with granddaughter. Patient is a 69-year-old male with a past medical history significant for primary hypertension, ESRD on HD via RIJ PermCath T// follows with Dr. Sandoval and prostate cancer s/p radical prostatectomy [2013] with bone mets currently on hormonal therapy [Xtandi] follows at [facility] in [place] presenting with a chief complaint of confusion and falls. According to patient's granddaughter at home today he had multiple ground-level falls and a subjective fever. She denied any head trauma, sick contacts, presyncope or syncope and travel out of the country. Of note she said he had his RIJ PermCath changed last week Tuesday and missed his last 2 dialysis dates, today and last week Tuesday. She also said that patient has history of frequent UTIs since his prostate radiation. ED course: BP 121/69, pulse 113, RR 28, temp 102F, SpO2 98% on room air Labs showed WBC 2.5, PLT 54, Hb 12.8, K5.1, bicarb 18.3, BUN 52, CR 5.7, LA 2.1, Trope 0.075, BNP 3223, Pro-Levi 341.99. Urinalysis showed 2+ protein and 3+ blood Head CT was negative for acute hemorrhage, mass effect or midline shift. Head CTA showed no cerebral large vessel occlusion. Chest x-ray showed moderate vascular congestion, RIJ dialysis catheter and no signs of consolidation. EKG showed sinus tachycardia and LAD block. Rate 134 In the ED patient received acetaminophen 1 g IV x 1, normal saline 1L IVF bolus, Zosyn 3.375 g IV x 1, vancomycin IV x 1, ondansetron 4 Mg IV x 1. Patient will be admitted for workup and management of likely sepsis secondary to infected RIJ catheter. Nephrology, Dr. Sandoval consulted and closely following the case. Neurology, Dr Hamilton consulted and closely following the case Past medical history: Prostate cancer s/p radical prostatectomy with bone mets on hormonal therapy ESRD on HD T// via RIJ PermCath Primary hypertension Medication list: Xtandi Gabapentin 400 Mg p.o. 3 times daily Sevelamer 800 Mg p.o. 3 times daily Renal VTI 1 tab p.o. daily Cephalexin 500 Mg p.o. 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 4 kids Tobacco use: Denies ETHO use: Denies Illicit drug use: Denies Social History Note: Lives with son. Can ambulate independently but sometimes uses a walker Family History: Family history of colon and prostate cancer Review of Systems Review of Systems Narrative Review of Systems: GENERAL: Endorses chills HEENT: Denies headaches or visual changes. Denies discharge. Neuro: Denies unusual weakness or difficulty speaking. CARDIO: Denies chest pain or palpitations. PULM: Denies SOB, coughing or wheezing. GI: Denies abdominal pain, N/V/C/D. Reports having BMs. URO: Denies burning/itching/pain/urinary changes. MSK/EXT/SKIN: Denies joint/skeletal/muscle pain, issues/changes in upper or lower extremities, itchiness, or superficial pain. PSYCH: Cooperative, pleasant mood & affect. The rest of the review of systems is otherwise negative. Exam Vital Signs Pulse Resp Pulse Ox O2 Flow Rate 131 H 39 H 98 2 01/29/25 15:48 01/29/25 15:48 01/29/25 15:48 01/29/25 15:48 Narrative Exam Constitutional Alert, oriented x 2 [person and place], mild distress. Elderly male HEENT Vision grossly intact. Patent nares. Trachea midline. Hearing impaired. Respiratory Chest normal on inspection, RIJ catheter noted. Exit site clean and clear auscultation bilaterally Cardiovascular S1 and S2 audible, RRR. No murmurs carotid bruit. No gross JVD. Abdominal Soft and non tender to palpation in all quadrants, however guarding in all quadrants.. BS + Genitourinary No bladder tenderness, no flank pain. Normal to palpation Musculoskeletal Extremities tone within normal limits. No LE edema. Skin Warm, dry and intact. No apparent lesions. Psychiatric Patient has good affect, is cooperative Neurological CN II - XII grossly intact. Extremity motor and sensation grossly intact. 1A: Level of Consciousness - Requires repeated stimulation to arouse + 2 1B: Ask Month and Age -both questions correct +0 1C: Blink Eyes & Squeeze Hands - Performs Both Tasks + 0 2: Test Horizontal Extraocular Movements - Normal + 0 3: Test Visual Bernstein -normal +0 4: Test Facial Palsy (Use Grimace if Obtunded) -no asymmetry +0 5A: Test Left Arm Motor Drift - No Drift for 10 Seconds + 0 5B: Test Right Arm Motor Drift - No Drift for 10 Seconds + 0 6A: Test Left Leg Motor Drift - No Drift for 5 Seconds + 0 6B: Test Right Leg Motor Drift - No Drift for 5 Seconds + 0 7: Test Limb Ataxia (FNF/Heel-Acosta) - No Ataxia + 0 8: Test Sensation - Normal; No sensory loss + 0 9: Test Language/Aphasia - Severe Aphasia: No aphasia +0 10: Test Dysarthria - Normal + 0 11: Test Extinction/Inattention - No abnormality + 0 NIHSS Score: +2 Results: Labs 01/30/25 05:00 01/30/25 05:00 Labs: Short CBC 01/29/25 Range/Units 14:56 WBC 2.5 L (3.8-10.6) Thou/mm3 Hgb 12.8 L (13.5-16.0) g/dL Hct 37.4 L (41.0-53.0) % Plt Count 54 L (140-440) Thou/mm3 BMP 01/29/25 14:56 Sodium 136 Potassium 5.1 Chloride 105 Carbon Dioxide 18.3 L BUN 52 H Creatinine 5.7 H* Glucose 107 H Calcium 8.6 Cardiac Enzymes 01/29/25 Range/Units 14:56 Troponin I 0.075 H* (0.0-0.045) ng/mL Liver Function 01/29/25 Range/Units 14:56 Total Bilirubin 0.4 (0.3-1.2) mg/dL AST 27 (0-34) U/L ALT 7 L (10-49) U/L Alkaline Phosphatase 77 (46-116) U/L Albumin 4.0 (3.4-4.8) gm/dL Urine 01/29/25 Range/Units 15:40 Urine Color Lt-Brown A (Lt Yel-Yel) Urine Clarity Hazy (Clear/Hazy) Urine pH 7.0 (5.0-7.0) Ur Specific [place] 1.021 (1.001-1.035) Urine Protein 2+ A (Neg - Trace) Urine Glucose (UA) Trace (Negative) ABG Interpretation ABG results: 01/29/25 17:25 ABG pH 7.30 L ABG pCO2 31 L ABG pO2 91 ABG HCO3 15 L ABG O2 Saturation 97 ABG Base Excess -10 L Quality Measures Quality Measures stroke Suspected type of Stroke: Unknown at this time (no stroke, CTs negative) Last known well (date): 01/29/25 Last known well (time): 08:00 Tenecteplase given: Reason(s) Tenecteplase not given: Unable to determine eligibility not given Rehab services: PT evaluation ordered VTE Prophylaxis: pharmaceutical Antithrombotic by day 2:: ordered Statin ordered: <75 y/o high intensity dose Anticoagulation ordered for A-fib or flutter (current or hx): not indicated and sepsis Current suspected stage: sepsis Possible source: unknown Blood cultures ordered: yes Antibiotic ordered: Yes Advance care planning discussed with:: patient and child Medications Home Medications and Allergies Home Medications ?Medication ?Instructions ?Recorded ?Confirmed ?Type hydrochlorothiazide 25 mg tablet 25 mg PO QDAY 1 03/17/22 History losartan 100 mg tablet 100 mg PO QDAY 04/02/2103/05 History Allergies Allergy/AdvReac Type Severity Reaction Status Date / Time No Known Allergies Allergy Verified 03/17/22 07:04 Visit Medications Acetaminophen (Acetaminophen 325 Mg Tablet) 650 mg PO Q6H PRN PRN Reason: Fever >100.3 or pain 1-3 Stop: 02/28/25 17:41 Albuterol/Ipratropium (Albuterol/Ipratropium (Duoneb) Rt Karolina 3 Ml Nebu) 3 ml INH Q4HR PRN PRN Reason: SHORTNESS OF BREATH OR WHEEZE Stop: 02/28/25 17:41 Aspirin (Aspirin Ec 81 Mg Tabec) 81 mg PO QDAY [facility] Stop: 03/01/25 08:59 Heparin Sodium (Porcine) (Heparin Sod Inj 5000 Unit/Ml Vial) 5,000 unit SC BID JENS Stop: 02/12/25 20:59 Hydromorphone HCl (Hydromorphone Inj 2 Mg/Ml Vial) 0.25 mg IVP Q2H PRN PRN Reason: BREAKTHROUGH PAIN Stop: 02/03/25 17:41 Acetaminophen (Ofirmev Inj) 1,000 mg in 100 mls @ 250 mls/hr IV Q6HR JENS Stop: 01/30/25 06:23 Last Infusion: 01/29/25 16:15 Dose: Infused Vancomycin/Sodium Chloride (Vancomycin/Ns 1 Gm Ivpb) 200 mls @ 120 mls/hr IV X1 ONE Stop: 01/29/25 17:54 Magnesium Sulfate (Magnesium Sulfate Ivpb) 2 gm in 50 mls @ 25 mls/hr IV X1 ONE Stop: 01/29/25 19:15 Ondansetron HCl (Ondansetron Inj 2 Mg/Ml Inj 2 Ml) 4 mg IVP Q4HR PRN PRN Reason: NAUSEA OR VOMITING Stop: 02/28/25 14:44 Pharmacy Consult (Pharmacy To Consult Patient) 1 each XX QDAY JENS Stop: 02/28/25 17:59 Pharmacy Consult (Vancomycin Pharmacy To Dose 1 Each Each) 1 each IV QDAY JENS Stop: 03/01/25 08:59 Discontinued Medications Heparin Sodium (Porcine) (Heparin Sod Inj 1000 Unit/Ml Vial 10 Ml) 1,700 unit INDWELLCAT X1 ONE Stop: 01/29/25 17:02 Sodium Chloride (Ns) 1,000 mls @ 999 mls/hr IV .Q1H1M ONE Stop: 01/29/25 16:08 Last Infusion: 01/29/25 16:46 Dose: Infused Vancomycin HCl (Vancomycin/Water 1gm Ivpb) 200 mls @ 120 mls/hr IV X1 ONE Stop: 01/29/25 17:47 Piperacillin/Tazobactam/Dextrose (Zosyn) 3.375 gm in 50 mls @ 100 mls/hr IV X1 ONE Stop: 01/29/25 17:42 Assessment & Plan Plan Patient is a 69-year-old male with a past medical history significant for primary hypertension, ESRD on HD via RIJ PermCath // follows with Dr. Sandoval and prostate cancer s/p radical prostatectomy [2013] with bone mets currently on hormonal therapy [Xtandi] follows at [facility] in [place] presenting with a chief complaint of confusion and falls. Patient will be admitted for workup and management of likely sepsis secondary to infected RIJ catheter. Likely sepsis secondary to infected RIJ catheter Patient presented with SIRS 4/4?pulse 122, RR 39, temp 102F and WBC 2.5 with his dialysis catheter as possible source of infection. Endorgan damage of elevated troponin. Chest x-ray showed moderate vascular congestion, RIJ dialysis catheter and no signs of consolidation. Pro-Levi elevated at 341.99 Plan: ? Pending blood, line and urine cultures ? Transthoracic echocardiogram ordered to rule out infective endocarditis ? Continue vancomycin IV pharmacy to dose ESRD on HD via RIJ PermCath T// Follows up with Dr. Sandoval. Missed last 2 dialysis dates Plan: ? Hemodialysis as per nephrology ? Renally dose medications ? Avoid nephrotoxic agents ? Nephrology, Dr. Gotti consulted and closely following the case. Appreciate recommendations Acute encephalopathy, likely metabolic?resolving Ground-level falls DDx: Sepsis, TIA, CVA, medication side effect Patient presented with confusion which is now resolving but no localizing deficits. CT brain and CTA were both negative for any acute findings NIHSS +2 for confusion Plan: - Neuro checks q 4H - Head of bed elevated to 30 degrees - PT/OT referrals placed - Seizure precautions in place - Allow permissive HTN. Antihypertensives if BP >220/120, with a goal of reduction in BP during the first 24 hours - HbA1C, Lipid panel, TSH ordered - Brain MRI without contrast ordered - PRN Acetaminophen 650mg to avoid hyperthermia - DVT Prophylaxis with Heparin 5000 U SC BID ? Aspirin 81 Mg p.o. daily as per teleneurology recommendation - Dr Hamilton consulted, pending in-house Neurology recommendations Troponinemia DDx: ESRD, sepsis, NSTEMI Plan: ? Trend troponin x 2 History of Prostate cancer s/p radical prostatectomy with bone mets on hormonal therapy On Xtandi as outpatient. Follows [facility] in [place] Plan: ? Continue outpatient follow-up Primary hypertension Plan: ? Antihypertensives on hold due to sepsis Health maintenance: Disposition: IV antibiotics, pending nephro and neuro recommendations. Pending blood and urine cultures Diet: Renal, 1500 cc fluid restriction Lines: pIVs GI Prophylaxis: None Thrombo Prophylaxis: Heparin Code status: FULL CODE Plan of care discussed with Attending Dr. Arnoldo Farah MD PGY 1 Disclaimer: This note was dictated by speech recognition. Minor errors in appeals specialist may be present due to voice recognition software. Attending Provider Attestation/Addendum I reviewed labs, imaging, EKG, home medications and prior available records. Face to face evaluation was performed by me. I have personally examined the patient and discussed assessment and plan with the IM team. I reviewed the resident note and agree with the plan with exceptions as below. 69-year-old male with history of essential hypertension, prostate cancer with metastases on Xtandi, and ESRD on hemodialysis via right upper chest dialysis line, who presented with a chief complaint of altered mental status and aphasia happen in the morning of the day of admission. Symptoms improved at the time of my evaluation as per granddaughter. Patient is febrile. He is tachypneic and hypertensive. Labs showed pancytopenia. Troponin is mildly elevated. CT head and CTA of head/neck are negative. Teleneurology was consulted and recommended aspirin Plan: Acute encephalopathy Acute febrile illness Possible sepsis: Source is unclear but can be line associated infection ESRD on hemodialysis Pancytopenia Elevated troponin/type II non-STEMI, likely demand ischemia in setting of acute febrile illness Plan: Empiric treatment with IV vancomycin for possible dialysis line associated infection Follow-up UA Follow-up chest x-ray Follow-up urine and blood cultures Trend troponin until it peaks Tylenol as needed for fevers Consulted inpatient neurology Consulted nephrology for hemodialysis Monitor CBC given the pancytopenia
[2025-01-29] MEDS: HEPARIN SOD INJ 1000 UNIT/ML VIAL 10 ML 1700 UNIT INDWELLCAT (18:10)
[2025-01-29] MEDS: PIPER/TAZO 3.375 GM PREMIX 3.375 GM/50 ML BAG IV (18:10)
[2025-01-29 18:19] LABS: Reflex Lactate? Y
[2025-01-29 18:31] VITALS: BP 109/69; PULSE 108; RESP 32; TEMP 38.9; O2SAT 99
[2025-01-29 18:32] LABS: Lactic Acid, 3 HR 1.2 mMol/L (0.4-2.0)
[2025-01-29] MEDS: ONDANSETRON INJ 2 MG/ML INJ 2 ML 4 MG IVP (19:07)
[2025-01-29] MEDS: HYDROmorphone INJ 2 MG/ML VIAL 0.25 MG IVP (19:08)
[2025-01-29 19:09] VITALS: PULSE 111; RESP 28; O2SAT 97
--- NOTE | 2025-01-29 19:15 | PC.NURSE ---
Pt is noted to be back at baseline per daughter. Pt is A/O x 3 with no c/o pain or acute distress. Pt is noted to be on cooling blanket at 64 degrees and tolerating well
--- NOTE | 2025-01-29 20:31 | ECHO_ITS ---
Transthoracic Echo Report Ht (in): 69 Wt (lb): 160 Exam Location: Echo Lab Status: Inpatient Civil Rights Investigator: Leticia Delaney Indications: Procedure Performed: BP: 134 / 85 HR: 87 Technical Quality: Technically difficult study MEASUREMENTS (Male / Female) Normal Values 2D ECHO LV Diastolic Diameter PLAX 4.8 cm 4.2 - 5.9 / 3.9 - 5.3 cm LV Systolic Diameter PLAX 3.4 cm IVS Diastolic Thickness 1.3 cm 0.6 - 1.0 / 0.6 - 0.9 cm LVPW Diastolic Thickness 1.3 cm 0.6 - 1.0 / 0.6 - 0.9 cm LV Relative Wall Thickness 0.5 LVOT Diameter 1.9 cm LA Systolic Diameter LX 3.1 cm 3.0 - 4.0 / 2.7 - 3.8 cm LV Ejection Fraction MOD BP 55.2 % >= 55 % LV Cardiac Index MOD BP 3721.8 cm?/min?m? LV Ejection Fraction MOD 4C 53.2 % LV Cardiac Index MOD 4C 3440.1 cm?/min?m? LV Ejection Fraction 4C AL 51.5 % LV Cardiac Index 4C AL 3471.6 cm?/min?m? LV Ejection Fraction MOD 2C 53.3 % LV Cardiac Index MOD 2C 3398.6 cm?/min?m? LV Ejection Fraction 2C AL 54.0 % LV Cardiac Index 2C AL 3611.5 cm?/min?m? LA Volume Index 13.2 cm?/m? 16 - 28 cm?/m? M-MODE Aortic Root Diameter MM 3.7 cm LA Systolic Diameter MM 3.6 cm LA Ao Ratio MM 1.0 AV Cusp Separation MM 1.4 cm DOPPLER AV Peak Velocity 157.5 cm/s AV Peak Gradient 9.9 mmHg AV Mean Gradient 5.0 mmHg AV Velocity Time Integral 31.6 cm LVOT Peak Velocity 106.0 cm/s LVOT Peak Gradient 4.5 mmHg LVOT Velocity Time Integral 24.1 cm LVOT Cardiac Index 3155.3 cm?/min?m? AV Area Cont Eq vti 2.2 cm? AV Area Cont Eq pk 1.9 cm? MV Area PHT 9.6 cm? MR Peak Velocity 538.3 cm/s MR Peak Gradient 115.9 mmHg Mitral E Point Velocity 72.3 cm/s Mitral A Point Velocity 103.0 cm/s Mitral E to A Ratio 0.7 LV E' Lateral Velocity 7.7 cm/s Mitral E to LV E' Lateral Ratio 9.4 LV E' Septal Velocity 6.1 cm/s Mitral E to LV E' Septal Ratio 11.9 TR Peak Velocity 230.5 cm/s TR Peak Gradient 21.3 mmHg PV Peak Velocity 106.0 cm/s PV Peak Gradient 4.5 mmHg FINDINGS Left Ventricle Normal left ventricular size. Global left ventricular systolic function is mildly decreased. Mild LVH. There is grade I diastolic dysfunction of the left ventricle (impaired relaxation pattern). The ejection fraction is visually estimated at 45-50%. Right Ventricle The right ventricle is normal in size and systolic function. The estimated right ventricular systolic pressure, 27 mmHg. RAP 5. Left Atrium The left atrium is normal by two-dimensional, color flow and Doppler imaging with no structural abnormalities, no thrombus formation present. Right Atrium The right atrium is normal by two-dimensional imaging, color flow and Doppler imaging with no structural abnormalities, no thrombus formation present. Atrial Septum The interatrial septum appears normal with no evidence of a shunt. Aorta The aorta is normal by two-dimensional, color flow and Doppler interrogation. Mitral Valve The mitral valve is normal by two-dimensional, color flow and Doppler interrogation. Moderate mitral regurgitation. Aortic Valve The aortic valve is trileaflet and normal by two-dimensional, color flow and Doppler interrogation. There is no significant aortic valve regurgitation. Tricuspid Valve The tricuspid valve is normal by two-dimensional, color flow and Doppler interrogation. There is mild tricuspid valve regurgitation. Pulmonic Valve The pulmonic valve is not well visualized. There is no significant pulmonic valve regurgitation. Vessels The pulmonary artery appears normal. The inferior vena cava pulmonary and hepatic veins appear normal. Pericardium The pericardium is normal by two-dimensional imaging. There is no significant pericardial effusion. CONCLUSIONS Indication: Dialysis catheter sepsis Normal LV size. Global left ventricular systolic function is mildly decreased. Mild LVH. There is grade I diastolic dysfunction. Estimated EF 45-50%. The RV is normal in size and systolic function. The estimated RVSP, 27 mmHg. RAP 5. Trace mitral and trace tricuspid regurgitation Shana Madrigal (Electronically Signed) Final Date: 01 Feb 2025 13:37
[2025-01-29 21:41] VITALS: BP 116/75; PULSE 96; RESP 26; TEMP 37.6; O2SAT 96
[2025-01-29 21:41] LABS: Troponin I 0.102 ng/mL (0.0-0.045)
[2025-01-29] MEDS: Magnesium Sulfate 2 GM Ivpb 2 GM/50 ML BAG IV (21:46)
[2025-01-29] MEDS: SODIUM BICARB INJ 8.4% 1 mEq/ML 50 ML VIAL 25 MEQ IV (21:46)
[2025-01-29 23:57] LABS: Troponin I 0.103 ng/mL (0.0-0.045)
[2025-01-30] VITALS (28 sets, daily range): BP systolic 88–142; BP diastolic 56–81; PULSE 84–118; RESP 15–26; TEMP 36.5–37.3; O2SAT 96–100; BMI 25.2
[2025-01-30] MEDS: HEPARIN SOD INJ 5000 UNIT/ML VIAL SC (00:04)
[2025-01-30] MEDS: GABAPENTIN 100 MG CAPSULE 400 MG PO ×2 (00:04→05:15)
[2025-01-30] MEDS: ATORVASTATIN CALCIUM 20 MG TABLET 40 MG PO ×2 (00:04→20:30)
[2025-01-30] MEDS: ACETAMINOPHEN IVPB 1,000 MG/100 ML VIAL 250 MG IV ×2 (00:14→05:15)
--- NOTE | 2025-01-30 00:29 | PC.NURSE ---
Report called to Kiki hartman RN
[2025-01-30 06:17] LABS: Basophils % (Auto) 0 % (0-2.5); Eosinophils % (Auto) 0 % (0-10); Hematocrit 33.9 % (41.0-53.0); Hemoglobin 11.3 g/dL (13.5-16.0); Immature Granulocytes % (Auto) 14 % (0-0); Immature Granulocytes Auto 0.49 Thou/mm3 (0.00-0.00); Lymphocytes # (Auto) 0.4 Thou/mm3 (1.0-4.8); Lymphocytes % (Auto) 10 % (10-50); Mean Corpuscular HGB Conc 33.3 g/dl (31.0-37.0); Mean Corpuscular Hemoglobin 31.4 pg (25.0-35.0); Mean Corpuscular Volume 94 fL (80-100); Monocytes # (Auto) 0.5 Thou/mm3 (0.0-0.8); Monocytes % (Auto) 14 % (0-12); Neutrophils # (Auto) 2.2 Thou/mm3 (1.8-7.7); Neutrophils % (Auto) 62 % (37-80); Nucleated Red Blood Cell % 0 /100 WBC (0); RDW Standard Deviation 58.4 fL (35.1-43.9); White Blood Count 3.5 Thou/mm3 (3.8-10.6)
[2025-01-30 06:28] LABS: Platelet Count 34 Thou/mm3 (140-440)
[2025-01-30 06:41] LABS: Glucose Estimated Average 91 mg/dL (80-131); Hemoglobin A1C 4.8 % Hgb (4.8-6.0)
[2025-01-30 06:43] LABS: Alanine Aminotransferase 11 U/L (10-49); Albumin, Serum 3.2 gm/dL (3.4-4.8); Albumin/Globulin Ratio 1.2 (1.2-2.2); Alkaline Phosphatase 64 U/L (46-116); Anion Gap 15 (7-16); Aspartate Amino Transferase 43 U/L (0-34); BUN/Creatinine Ratio 9 Ratio (12-20); Bilirubin,Total 0.5 mg/dL (0.3-1.2); Blood Urea Nitrogen 58 mg/dL (9-23); Calcium 7.8 mg/dL (8.3-10.6); Calcium (Corrected) 8.4 mg/dL (8.5-10.1); Carbon Dioxide 17.6 mMol/L (20.0-31.0); Cardiac Risk Estimate 4.7 RATIO (4.0-6.7); Chloride 104 mMol/L (98-107); Cholesterol 140 mg/dL (132-200); Creatinine (Component) 6.2 mg/dL (0.6-1.3); Estimated Creatinine Clearance 11.1 mL/min (>60); Globulin 2.6 gm/dL (2.3-3.5); Glucose 70 mg/dL (74-106); HDL Cholesterol 30 mg/dL (40-60); LDL Cholesterol,Calculated 69 mg/dL (0-130); Magnesium 1.8 mg/dL (1.6-2.6); Osmolality,Calculated 288 (275-295); Phosphorous 6.8 mg/dL (2.4-5.1); Potassium 4.8 mMol/L (3.4-5.1); Sodium 137 mMol/L (136-145); Thyroid Stimulating Hormone 1.16 uIU/mL (0.55-4.78); Total Protein 5.8 gm/dL (5.7-8.2); Triglycerides 205 mg/dL (30-150); eGFR 9 See Note
[2025-01-30 07:15] LABS: Vancomycin,Random < 3.0 mcg/mL
[2025-01-30] MEDS: SODIUM CHLORIDE 0.9% 250 ML 250 ML 999 ML IV ×2 (08:10→08:50)
[2025-01-30] MEDS: PIPER/TAZO INJ 4.5 GM in SODIUM CHLORIDE 0.9% (POP) 100 ML IV ×2 (08:50→20:29)
[2025-01-30 09:11] LABS: Slide Review Platelets confirmed
--- NOTE | 2025-01-30 09:48 | PC.SS ---
Update: Patient to obtain dialysis today. Patient is established with outpatient dialysis.
--- NOTE | 2025-01-30 09:50 | XR_ITS ---
Examination: AP chest single view Technique one AP portable semiupright chest single view Date and time: January 23, 2000 2510 0 2:00 AM Comparison January 29, 2025 INDICATIONS: Abnormal lung sounds on auscultation the last 3 days FINDINGS: Mild prominence left ventricle Moderate vascular congestion No lobar pneumonia Blunting of the left lateral costophrenic angle Right internal jugular dialysis catheter tips right atrium IMPRESSION: Moderate vascular congestion No lobar pneumonia
--- NOTE | 2025-01-30 10:13 | ESPR_ITS ---
<Statement entered by Delgado Bermudez MD - 01/30/25 22:11> Patient was seen and examined at bedside. I agree on the assessment and plan on this note. - Patient's plan and care discussed with my attending, Dr. Arnoldo Bermudez MD Internal Medicine PGY-2 Documentation for date of: 01/30/25 Subjective Subjective Interval history: Patient more somnolent today, but still A&O x 3. This a.m. BP 78/56 [66], pulse 94. WBC decreased to 11.3, PLT decreased to 34, Bicarb decreased to 17.6, tropon increased from 0.102 to 0.11. Blood cultures grew GNR in both bottles preliminary, urine culture still pending. Cocci serology positive for IgM, pending IgG confirmatory. Repeat chest x-ray showed bilateral pulmonary edema, no effusion. Started patient on Zosyn 4.5 g IV twice daily, fluconazole 400 Mg p.o. daily and discontinued vancomycin, normal saline 500 cc IV fluid bolus, lactated Ringer's 1 L IV fluid bolus and consulted systems administrator for specialist opinion. Patient scheduled for hemodialysis today. Exam Vital Signs Temp Pulse Resp BP Pulse Ox O2 Del Method O2 Flow Rate 99.2 F 87 18 110/81 98 Nasal Cannula 2 01/30/25 04:00 01/30/25 08:02 01/30/25 08:02 01/30/25 10:12 01/30/25 08:02 01/30/25 08:02 01/30/25 08:02 Narrative Exam Constitutional Alert, oriented x 2 [person and place], mild distress. Elderly male HEENT Vision grossly intact. Patent nares. Trachea midline. Hearing impaired. Respiratory Chest normal on inspection, RIJ catheter noted. Exit site clean and mild crackles at bases bilaterally Cardiovascular S1 and S2 audible, RRR. No murmurs carotid bruit. No gross JVD. Abdominal Soft and non tender to palpation in all quadrants, however guarding in all quadrants.. BS + Genitourinary No bladder tenderness, no flank pain. Normal to palpation Musculoskeletal Extremities tone within normal limits. No LE edema. Skin Warm, dry and intact. No apparent lesions. Psychiatric Patient has good affect, is cooperative Neurological CN II - XII grossly intact. Extremity motor and sensation grossly intact. 1A: Level of Consciousness -alert +0 1B: Ask Month and Age -both questions correct +0 1C: Blink Eyes & Squeeze Hands - Performs Both Tasks + 0 2: Test Horizontal Extraocular Movements - Normal + 0 3: Test Visual Bernstein -normal +0 4: Test Facial Palsy (Use Grimace if Obtunded) -no asymmetry +0 5A: Test Left Arm Motor Drift - No Drift for 10 Seconds + 0 5B: Test Right Arm Motor Drift - No Drift for 10 Seconds + 0 6A: Test Left Leg Motor Drift - No Drift for 5 Seconds + 0 6B: Test Right Leg Motor Drift - No Drift for 5 Seconds + 0 7: Test Limb Ataxia (FNF/Heel-Acosta) - No Ataxia + 0 8: Test Sensation - Normal; No sensory loss + 0 9: Test Language/Aphasia - Severe Aphasia: No aphasia +0 10: Test Dysarthria - Normal + 0 11: Test Extinction/Inattention - No abnormality + 0 NIHSS Score: +0 Objective Labs 01/31/25 05:13 01/31/25 05:13 Labs: Laboratory Results - last 24 hr 01/29/25 01/29/25 01/29/25 14:50 14:56 15:40 WBC 2.5 L RBC 4.13 L Hgb 12.8 L Hct 37.4 L MCV 91 MCH 31.0 MCHC 34.2 RDW Std Deviation 55.8 H Plt Count 54 L Neut % (Auto) 79 Lymph % (Auto) 12 [place] % (Auto) 6 Eos % (Auto) 0 Baso % (Auto) 0 Neut # (Auto) 2.0 Lymph # (Auto) 0.3 L [place] # (Auto) 0.2 Eos # (Auto) 0.0 Baso # (Auto) 0.0 Immature Gran # (Auto) 0.07 H Absolute Nucleated RBC 0.00 Immature Gran % 3 H Nucleated RBC % 0 PT 11.7 INR 1.1 APTT 28.2 Puncture Site ABG pH ABG pCO2 ABG pO2 ABG HCO3 ABG O2 Saturation ABG Base Excess Oxygen Liter Flow Sodium 136 Potassium 5.1 Chloride 105 Carbon Dioxide 18.3 L Anion Gap 13 BUN 52 H Creatinine 5.7 H* Estim Creat Clear Calc Not Performed. eGFR 10 L* BUN/Creatinine Ratio 9 L Glucose [address] Glu mg/dL Hemoglobin A1c Calculated Osmolality 285 Lactic Acid 2.1 H Calcium 8.6 Corrected Calcium 8.6 Phosphorus Magnesium 1.3 L Total Bilirubin 0.4 AST 27 ALT 7 L Alkaline Phosphatase 77 Troponin I 0.075 H* B-Natriuretic Peptide 323 H Total Protein 7.0 Albumin 4.0 Globulin 3.0 Albumin/Globulin Ratio 1.3 Triglycerides Cholesterol LDL Cholesterol, Calc HDL Cholesterol Cholesterol/HDL Ratio Procalcitonin 341.99 H TSH Ur Collection Type Clean Catch Urine Color Lt-Brown A Urine Clarity Hazy Urine pH 7.0 Ur Specific [place] 1.021 Urine Protein 2+ A Urine Glucose (UA) Trace Urine Ketones Negative Urine Blood 3+ A Urine Nitrite Negative Urine Bilirubin Negative Urine Urobilinogen (Auto) Negative Ur Leukocyte Esterase Negative Urine RBC 991 H Urine WBC 1 Ur Squamous Epith Cells 0 Urine Bacteria Rare Random Vancomycin Urine Opiates Screen Negative Urine Fentanyl Screen Negative Ur Barbiturates Screen Negative U Amphetamin/Meth Scrn Negative U Benzodiazepines Scrn Negative U Cocaine Metab Screen Negative U Marijuana (THC) Screen Negative Ethyl Alcohol < 10.0 Misc Test Result Platelets confirmed 01/29/25 01/29/25 01/29/25 17:25 18:27 21:12 WBC RBC Hgb Hct MCV MCH MCHC RDW Std Deviation Plt Count Neut % (Auto) Lymph % (Auto) [place] % (Auto) Eos % (Auto) Baso % (Auto) Neut # (Auto) Lymph # (Auto) [place] # (Auto) Eos # (Auto) Baso # (Auto) Immature Gran # (Auto) Absolute Nucleated RBC Immature Gran % Nucleated RBC % PT INR APTT Puncture Site Right Brachial ABG pH 7.30 L ABG pCO2 31 L ABG pO2 91 ABG HCO3 15 L ABG O2 Saturation 97 ABG Base Excess -10 L Oxygen Liter Flow 2 Sodium Potassium Chloride Carbon Dioxide Anion Gap BUN Creatinine Estim Creat Clear Calc eGFR BUN/Creatinine Ratio Glucose Estimated Ave Glu mg/dL Hemoglobin A1c Calculated Osmolality Lactic Acid 1.2 Calcium Corrected Calcium Phosphorus Magnesium Total Bilirubin AST ALT Alkaline Phosphatase Troponin I 0.102 H* B-Natriuretic Peptide Total Protein Albumin Globulin Albumin/Globulin Ratio Triglycerides Cholesterol LDL Cholesterol, Calc HDL Cholesterol Cholesterol/HDL Ratio Procalcitonin TSH Ur Collection Type Urine Color Urine Clarity Urine pH Ur Specific [place] Urine Protein Urine Glucose (UA) Urine Ketones Urine Blood Urine Nitrite Urine Bilirubin Urine Urobilinogen (Auto) Ur Leukocyte Esterase Urine RBC Urine WBC Ur Squamous Epith Cells Urine Bacteria Random Vancomycin Urine Opiates Screen Urine Fentanyl Screen Ur Barbiturates Screen U Amphetamin/Meth Scrn U Benzodiazepines Scrn U Cocaine Metab Screen U Marijuana (THC) Screen Ethyl Alcohol Misc Test Result 01/29/25 01/30/25 23:30 05:00 WBC 3.5 L RBC 3.60 L Hgb 11.3 L Hct 33.9 L MCV 94 MCH 31.4 MCHC 33.3 RDW Std Deviation 58.4 H Plt Count 34 L D Neut % (Auto) 62 Lymph % (Auto) 10 [place] % (Auto) 14 H Eos % (Auto) 0 Baso % (Auto) 0 Neut # (Auto) 2.2 Lymph # (Auto) 0.4 L [place] # (Auto) 0.5 Eos # (Auto) 0.0 Baso # (Auto) 0.0 Immature Gran # (Auto) 0.49 H Absolute Nucleated RBC 0.00 Immature Gran % 14 H Nucleated RBC % 0 PT INR APTT Puncture Site ABG pH ABG pCO2 ABG pO2 ABG HCO3 ABG O2 Saturation ABG Base Excess Oxygen Liter Flow Sodium 137 Potassium 4.8 Chloride 104 Carbon Dioxide 17.6 L Anion Gap 15 BUN 58 H Creatinine 6.2 H* D Estim Creat Clear Calc 11.1 L eGFR 9 L* BUN/Creatinine Ratio 9 L Glucose [address] Glu mg/dL 91 Hemoglobin A1c 4.8 Calculated Osmolality 288 Lactic Acid Calcium 7.8 L Corrected Calcium 8.4 L Phosphorus 6.8 H Magnesium 1.8 Total Bilirubin 0.5 AST 43 H ALT 11 Alkaline Phosphatase 64 Troponin I 0.103 H* 0.110 H* B-Natriuretic Peptide Total Protein 5.8 Albumin 3.2 L D Globulin 2.6 Albumin/Globulin Ratio 1.2 Triglycerides 205 H Cholesterol 140 LDL Cholesterol, Calc 69 HDL Cholesterol 30 L Cholesterol/HDL Ratio 4.7 Procalcitonin TSH 1.16 Ur Collection Type Urine Color Urine Clarity Urine pH Ur Specific [place] Urine Protein Urine Glucose (UA) Urine Ketones Urine Blood Urine Nitrite Urine Bilirubin Urine Urobilinogen (Auto) Ur Leukocyte Esterase Urine RBC Urine WBC Ur Squamous Epith Cells Urine Bacteria Random Vancomycin < 3.0 Urine Opiates Screen Urine Fentanyl Screen Ur Barbiturates Screen U Amphetamin/Meth Scrn U Benzodiazepines Scrn U Cocaine Metab Screen U Marijuana (THC) Screen Ethyl Alcohol Misc Test Result Platelets confirmed ABG Interpretation ABG results: 01/29/25 17:25 ABG pH 7.30 L ABG pCO2 31 L ABG pO2 91 ABG HCO3 15 L ABG O2 Saturation 97 ABG Base Excess -10 L Quality Measures Quality Measures stroke Suspected type of Stroke: Unknown at this time (no stroke, CTs negative) Last known well (date): 01/29/25 Last known well (time): 08:00 Tenecteplase given: Reason(s) Tenecteplase not given: Unable to determine eligibility not given Rehab services: PT evaluation ordered and Speech Language Pathology eval ordered (Not indicated) VTE Prophylaxis: mechanical Antithrombotic by day 2:: ordered Statin ordered: <75 y/o high intensity dose Anticoagulation ordered for A-fib or flutter (current or hx): not indicated and sepsis Current suspected stage: sepsis Possible source: unknown Blood cultures ordered: yes Antibiotic ordered: Yes Advance care planning discussed with:: patient Assessment & Plan Assessment Current Active Medications: Generic Name Dose Route Start Last Admin Trade Name Freq PRN Reason Stop Dose Admin Acetaminophen 650 mg 01/29/25 17:42 Acetaminophen 325 Mg Tablet PO 02/28/25 17:41 Q6H PRN Fever >100.3 or pain 1-3 Albuterol/Ipratropium 3 ml 01/29/25 17:42 Albuterol/Ipratropium (Duoneb) Rt Karolina 3 Ml Nebu INH 02/28/25 17:41 Q4HR PRN SHORTNESS OF BREATH OR WHEEZE Aspirin 81 mg 01/30/25 09:00 Aspirin Ec 81 Mg Tabec PO 03/01/25 08:59 QDAY JENS Atorvastatin Calcium 40 mg 01/29/25 21:00 01/30/25 00:04 Atorvastatin Calcium 20 Mg Tablet PO 02/28/25 20:59 40 mg HS JENS Administration Citric Acid/Sodium Citrate 30 ml 01/30/25 09:00 Citric Acid/Sodium Citr 15 Ml Udc (Bicitra) PO 03/01/25 08:59 BID JENS Gabapentin 100 mg/ Gabapentin 400 mg 01/30/25 14:00 300 mg PO 02/28/25 21:59 TID JENS Hydromorphone HCl 0.25 mg 01/29/25 17:42 01/29/25 19:08 Hydromorphone Inj 2 Mg/Ml Vial IVP 02/03/25 17:41 0.25 mg Q2H PRN Administration BREAKTHROUGH PAIN Vancomycin/Sodium Chloride 200 mls @ 120 mls/hr 01/30/25 10:00 Vancomycin/Ns 1 Gm Ivpb IV 01/30/25 11:39 X1 ONE Piperacillin Sod/Tazobactam 100 mls @ 200 mls/hr 01/30/25 08:10 01/30/25 08:50 Sod 4.5 gm/ Sodium Chloride IV 02/06/25 08:09 200 mls/hr Q12HR JENS Administration Albumin Human 25 gm in 100 mls @ 100 mls/hr 01/30/25 11:00 Albuminar-25 Ivpb IV PRN PRN DIALYSIS Ondansetron HCl 4 mg 01/29/25 14:45 01/29/25 19:07 Ondansetron Inj 2 Mg/Ml Inj 2 Ml IVP 02/28/25 14:44 4 mg Q4HR PRN Administration NAUSEA OR VOMITING Pharmacy Consult 1 each 01/29/25 18:00 Pharmacy To Consult Patient XX 02/28/25 17:59 QDAY PRN CONSULT Pharmacy Consult 1 each 01/30/25 09:00 Vancomycin Pharmacy To Dose 1 Each Each IV 03/01/25 08:59 QDAY PRN CONSULT Sevelamer Carbonate 800 mg 01/30/25 08:00 Sevelamer Carbonate 800 Mg Tablet PO 03/01/25 07:59 TIDWM [facility] Vitamin B Complex/Vit C/Folic Acid 1 tab 01/30/25 09:00 Vit B12/Vit C/Fa (Nephrovite) Tablet PO 03/01/25 08:59 QDAY JENS Plan Patient is a 69-year-old male with a past medical history significant for primary hypertension, [facility] Dr. Sandoval and prostate cancer s/p radical prostatectomy [2014] with bone mets currently on hormonal therapy [Xtandi] follows at [facility] in [place] presenting with a chief complaint of confusion and falls. Patient will be admitted for workup and management of likely sepsis secondary to infected RIJ catheter. Likely sepsis secondary to GNR bacteremia Coccidiomycosis Patient presented with SIRS 4/4?pulse 122, RR 39, temp 102F and WBC 2.5 with his dialysis catheter as possible source of infection. Endorgan damage of elevated troponin. Chest x-ray showed moderate vascular congestion, RIJ dialysis catheter and no signs of consolidation. Pro-Levi elevated at 341.99 Cocci IgM positive Sepsis due to [GNR bacteremia] with acute sepsis-related organ dysfunction as evidence by [hypotension and troponinemia]. This a.m. BP 78/56 [66], pulse 94. WBC decreased to 11.3, PLT decreased to 34, Bicarb decreased to 17.6, troponin increased from 0.102 to 0.11. Blood cultures grew GNR in both bottles preliminary, urine culture still pending. Cocci serology positive for IgM, pending IgG confirmatory. Repeat chest x-ray showed bilateral pulmonary edema, no effusion. Started patient on Zosyn 4.5 g IV twice daily, fluconazole 400 Mg p.o. daily and discontinued vancomycin, normal saline 500 cc IV fluid bolus, lactated Ringer's 1 L IV fluid bolus and consulted systems administrator for specialist opinion. Plan: ? Repeat lactate ordered ? Pending speciation of blood cultures. ? Pending urine culture results ? Pending transthoracic echocardiogram ordered to rule out infective endocarditis ? Discontinued vancomycin ? Started on Zosyn 4.5 g IV twice daily on [01/30? ? Started on fluconazole 400 Mg p.o. daily ? Normal saline 500 cc IVF bolus ? Lactated Ringer's 500 cc IVF bolus ? Consulted systems administrator, Dr. Mcfarland. Appreciate recommendations ESRD on HD via [facility] T// Follows up with Dr. Sandoval. Missed last 2 dialysis dates Scheduled for hemodialysis today Plan: ? Hemodialysis as per nephrology ? Renally dose medications ? Avoid nephrotoxic agents ? Nephrology, Dr. Gotti consulted and closely following the case. Appreciate recommendations Acute encephalopathy, likely metabolic?resolved Ground-level falls DDx: Sepsis, TIA, CVA, medication side effect Patient presented with confusion which is now resolving but no localizing deficits. CT brain and CTA were both negative for any acute findings NIHSS +0 Plan: - Neuro checks q 4H - Head of bed elevated to 30 degrees - PT/OT referrals placed - Seizure precautions in place - Allow permissive HTN. Antihypertensives if BP >220/120, with a goal of reduction in BP during the first 24 hours - HbA1C, Lipid panel, TSH ordered - PRN Acetaminophen 650mg to avoid hyperthermia - DVT Prophylaxis with Heparin 5000 U SC BID ? Aspirin 81 Mg p.o. daily as per teleneurology recommendation - Dr Hamilton consulted, pending in-house Neurology recommendations Troponinemia DDx: ESRD, sepsis, NSTEMI Troponin increased from 0.102 to 0.11 Plan: ? No need to further trend. History of Prostate cancer s/p radical prostatectomy with bone mets on hormonal therapy On Xtandi as outpatient. Follows [facility] in [place] Plan: ? Continue outpatient follow-up Primary hypertension Plan: ? Antihypertensives on hold due to sepsis Health maintenance: Disposition: IV antibiotics, fluconazole. Hemodialysis as per nephrology. Diet: Renal, 1500 cc fluid restriction Lines: pIVs GI Prophylaxis: None Thrombo Prophylaxis: Heparin Code status: FULL CODE Plan of care discussed with Attending Dr. Mclaughlin and PGY2 Dr. Aidan Farah MD PGY 1 Disclaimer: This note was dictated by speech recognition. Minor errors in hospice aide may be present due to voice recognition software. Attending Provider Attestation/Addendum I reviewed labs, imaging, EKG, home medications and prior available records. Face to face evaluation was performed by me. I have personally examined the patient and discussed assessment and plan with the IM team. I reviewed the resident note and agree with the plan with exceptions as below. Acute hypotension, new complication Acute encephalopathy improved Acute febrile illness Gram-negative sepsis Acute diarrhea ESRD on hemodialysis Pancytopenia Elevated troponin/type II non-STEMI, likely demand ischemia in setting of acute febrile illness Plan: Blood pressure dropped significantly. Started IV fluids. Notified ICU given ESRD and volume overload picture Added Zosyn to vancomycin Sent cocci IgM Follow-up urine and blood cultures: Showing gram-negative rods Trend troponin: Peaked Ordered C. difficile Tylenol as needed for fevers Consulted inpatient neurology Consulted nephrology for hemodialysis Monitor CBC given the pancytopenia
[2025-01-30] MEDS: CITRIC ACID/SODIUM CITR 15 ML UDC (BICITRA) 30 ML PO ×2 (10:16→20:29)
[2025-01-30] MEDS: VIT B12/Vit C/FA (Nephrovite) TABLET 1 TAB PO (10:17)
[2025-01-30] MEDS: ASPIRIN EC 81 MG TABEC PO (10:17)
[2025-01-30] MEDS: SEVELAMER CARBONATE 800 MG TABLET PO ×3 (10:17→17:11)
[2025-01-30] MEDS: VANCOMYCIN/NS 1 GM IVPB 200 ML IV (10:48)
[2025-01-30] MEDS: RINGERS LACTATED 1000 ML 1,000 ML 999 ML IV (10:49)
[2025-01-30 11:19] LABS: Base Excess, Venous -10 (-3-3); O2 Saturation, Venous 49 % (96-97); PCO2, Venous 46 mmHg (36-56); PO2, Venous 32 mmHg (15-58)
--- NOTE | 2025-01-30 11:22 | PD.RESCONSUL ---
HPI Data of Consult Requesting Physician: Gen Mclaughlin MD Admitting Provider: Gen Mclaughlin MD Attending Provider: Gen Mclaughlin MD Primary Care Provider: Andre Chow PA-C Consult Narrative Reason for consult: Severe sepsis History of present illness: Patient is a 69-year-old male with past medical history of hypertension, ESRD on hemodialysis with right tunneled cath T/TH/S, prostate cancer status post radical prostatectomy with bone mets curently on Xtandi who was admitted on 01/29/25 for suspected CLABSI. Patient states that he missed 1 day of hemodialysis. He states that prior to coming to the hospital he had the tunneled cath placed about a week ago and he started feeling weak and sick since then. He denies any coughing, dysuria, chest pain, shortness of breath, palpitations or constipation. He did have an episode of diarrhea today. ICU was consulted for soft blood pressures and potential need for pressor support. Today: Vitals 110/81, P 87, RR 18, T 99.2, O2 Sat 98 on 2L NC CBC showed a WBC of 3.5, hemoglobin 11.3, platelet count 34 ABG showed a pH of 7.30 with a pCO2 of 31 and a follow-up VBG showed a pH of 7.20 CMP was significant for a bicarb of 17.6 anion gap 15, BUN 58 and a creatinine of 6.2 with a glucose of 70 Troponins were elevated at 0.110, BNP 323 albumin 3.2 and triglycerides 205. Procalcitonin was elevated at 341.99 Patient's UA was significant for 2+ protein 3+ blood and 9[address] with rare bacteria CT head fevers up to 103 on presentation. Patient had 2 blood pressure readings this morning with a MAP in the 50s. He was given 1.5 L boluses since admission due to the need for hemodialysis. Of note patient's blood cultures have grown GNR bacteremia preliminarily. cc:: cc: Gen Mclaughlin MD Review of Systems Review of Systems Systems Reviewed: All systems reviewed, normal except as documented Exam Vital Signs Temp Pulse Resp BP Pulse Ox O2 Del Method O2 Flow Rate 99.2 F 87 18 110/81 98 Nasal Cannula 2 01/30/25 04:00 01/30/25 08:02 01/30/25 08:02 01/30/25 10:12 01/30/25 08:02 01/30/25 08:02 01/30/25 08:02 Narrative Exam Constitutional: Well nourished and in no acute distress but is very hard of hearing Head: Normocephalic/Atraumatic Eyes: PERRL , no conjunctival injection , symmetrical lids. ENMT: Moist Mucous Membranes, No trauma or injury. Neck: Supple to palpation, No JVD CVS: RRR, S1 and S2 present, no murmurs, rubs or gallops . There is a tunneled cath in the right chest wall without erythema or visible discharge. RESP: CTAB, no SOB. Crackles heard on the right lung base GI: Normal BS, Nontender/Nondistended. MSK: Full range of motion, No trauma or deformities or masses. Skin: Warm to touch, Dry. No rashes or lesions. No hematomas Neuro: paper pattern folder II-XII grossly intact. Sensation grossly intact. Psych: (AAO) x3 . Appropriate mood and affect. Results Labs 01/30/25 05:00 01/30/25 05:00 Labs: Short CBC 01/29/25 01/30/25 Range/Units 14:56 05:00 WBC 2.5 L 3.5 L (3.8-10.6) Thou/mm3 Hgb 12.8 L 11.3 L (13.5-16.0) g/dL Hct 37.4 L 33.9 L (41.0-53.0) % Plt Count 54 L 34 L D (140-440) Thou/mm3 BMP 01/29/25 01/30/25 14:56 05:00 Sodium 136 137 Potassium 5.1 4.8 Chloride 105 104 Carbon Dioxide 18.3 L 17.6 L BUN 52 H 58 H Creatinine 5.7 H* 6.2 H* D Glucose 107 H 70 L Calcium 8.6 7.8 L Cardiac Enzymes 01/29/25 01/29/25 01/29/25 Range/Units 14:56 21:12 23:30 Troponin I 0.075 H* 0.102 H* 0.103 H* (0.0-0.045) ng/mL 01/30/25 Range/Units 05:00 Troponin I 0.110 H* (0.0-0.045) ng/mL Liver Function 01/29/25 01/30/25 Range/Units 14:56 05:00 Total Bilirubin 0.4 0.5 (0.3-1.2) mg/dL AST 27 43 H (0-34) U/L ALT 7 L 11 (10-49) U/L Alkaline Phosphatase 77 64 (46-116) U/L Albumin 4.0 3.2 L D (3.4-4.8) gm/dL Urine 01/29/25 Range/Units 15:40 Urine Color Lt-Brown A (Lt Yel-Yel) Urine Clarity Hazy (Clear/Hazy) Urine pH 7.0 (5.0-7.0) Ur Specific [place] 1.021 (1.001-1.035) Urine Protein 2+ A (Neg - Trace) Urine Glucose (UA) Trace (Negative) ABG Interpretation ABG results: 01/29/25 01/30/25 17:25 11:00 ABG pH 7.30 L ABG pCO2 31 L ABG pO2 91 ABG HCO3 15 L ABG O2 Saturation 97 ABG Base Excess -10 L VBG pH 7.20 L VBG pCO2 46 VBG pO2 32 VBG Base Excess -10 L Quality Measures Quality Measures stroke Suspected type of Stroke: Unknown at this time (no stroke, CTs negative) Last known well (date): 01/29/25 Last known well (time): 08:00 Tenecteplase given: Reason(s) Tenecteplase not given: Unable to determine eligibility not given Rehab services: PT evaluation ordered VTE Prophylaxis: not indicated Antithrombotic by day 2:: ordered and not indicated (describe) Statin ordered: n/a Anticoagulation ordered for A-fib or flutter (current or hx): ordered and not indicated and sepsis Current suspected stage: sepsis Possible source: unknown Blood cultures ordered: yes Antibiotic ordered: Yes Advance care planning discussed with:: patient Medications Home Medications and Allergies Home Medications ?Medication ?Instructions ?Recorded ?Confirmed ?Type hydrochlorothiazide 25 mg tablet 25 mg PO QDAY 04/02/21 03/17/22 History losartan 100 mg tablet 100 mg PO QDAY 04/02/21 03/17/22 History Allergies Allergy/AdvReac Type Severity Reaction Status Date / Time No Known Allergies Allergy Verified 03/17/22 07:04 Visit Medications Acetaminophen (Acetaminophen 325 Mg Tablet) 650 mg PO Q6H PRN PRN Reason: Fever >100.3 or pain 1-3 Stop: 02/28/25 17:41 Albuterol/Ipratropium (Albuterol/Ipratropium (Duoneb) Rt Karolina 3 Ml Nebu) 3 ml INH Q4HR PRN PRN Reason: SHORTNESS OF BREATH OR WHEEZE Stop: 02/28/25 17:41 Aspirin (Aspirin Ec 81 Mg Tabec) 81 mg PO QDAY [facility] Stop: 03/01/25 08:59 Last Admin: 01/30/25 10:17 Dose: 81 mg Atorvastatin Calcium (Atorvastatin Calcium 20 Mg Tablet) 40 mg PO HS [facility]ENS Stop: 02/28/25 20:59 Last Admin: 01/30/25 00:04 Dose: 40 mg Citric Acid/Sodium Citrate (Citric Acid/Sodium Citr 15 Ml Udc (Bicitra)) 30 ml PO BID [facility] Stop: 03/01/25 08:59 Last Admin: 01/30/25 10:16 Dose: 30 ml Gabapentin 100 mg/ Gabapentin (300 mg) 400 mg PO TID [facility]ENS Stop: 02/28/25 21:59 Hydromorphone HCl (Hydromorphone Inj 2 Mg/Ml Vial) 0.25 mg IVP Q2H PRN PRN Reason: BREAKTHROUGH PAIN Stop: 02/03/25 17:41 Last Admin: 01/29/25 19:08 Dose: 0.25 mg Vancomycin/Sodium Chloride (Vancomycin/Ns 1 Gm Ivpb) 200 mls @ 120 mls/hr IV X1 ONE Stop: 01/30/25 11:39 Last Admin: 01/30/25 10:48 Dose: 120 mls/hr Piperacillin Sod/Tazobactam (Sod 4.5 gm/ Sodium Chloride) 100 mls @ 200 mls/hr IV Q12HR JENS Stop: 02/06/25 08:09 Last Admin: 01/30/25 08:50 Dose: 200 mls/hr Albumin Human (Albuminar-25 Ivpb) 25 gm in 100 mls @ 100 mls/hr IV PRN PRN PRN Reason: DIALYSIS Lactated Ringer's (Lactated Ringers) 1,000 mls @ 999 mls/hr IV .Q1H1M ONE Stop: 01/30/25 11:47 Last Admin: 01/30/25 10:49 Dose: 999 mls/hr Ondansetron HCl (Ondansetron Inj 2 Mg/Ml Inj 2 Ml) 4 mg IVP Q4HR PRN PRN Reason: NAUSEA OR VOMITING Stop: 02/28/25 14:44 Last Admin: 01/29/25 19:07 Dose: 4 mg Pharmacy Consult (Pharmacy To Consult Patient) 1 each XX QDAY PRN PRN Reason: CONSULT Stop: 02/28/25 17:59 Pharmacy Consult (Vancomycin Pharmacy To Dose 1 Each Each) 1 each IV QDAY PRN PRN Reason: CONSULT Stop: 03/01/25 08:59 Sevelamer Carbonate (Sevelamer Carbonate 800 Mg Tablet) 800 mg PO TIDWM [facility] Stop: 03/01/25 07:59 Last Admin: 01/30/25 10:17 Dose: 800 mg Vitamin B Complex/Vit C/Folic Acid (Vit B12/Vit C/Fa (Nephrovite) Tablet) 1 tab PO QDAY [facility] Stop: 03/01/25 08:59 Last Admin: 01/30/25 10:17 Dose: 1 tab Discontinued Medications Gabapentin (Gabapentin 100 Mg Capsule) 400 mg PO TID JENS Stop: 02/28/25 21:59 Last Admin: 01/30/25 05:15 Dose: 400 mg Heparin Sodium (Porcine) (Heparin Sod Inj 1000 Unit/Ml Vial 10 Ml) 1,700 unit INDWELLCAT X1 ONE Stop: 01/29/25 17:02 Last Admin: 01/29/25 18:10 Dose: 1,700 unit Heparin Sodium (Porcine) (Heparin Sod Inj 5000 Unit/Ml Vial) 5,000 unit SC BID [facility]ENS Stop: 02/12/25 20:59 Last Admin: 01/30/25 00:04 Dose: 5,000 unit Sodium Chloride (Ns) 1,000 mls @ 999 mls/hr IV .Q1H1M ONE Stop: 01/29/25 16:08 Last Infusion: 01/29/25 16:46 Dose: Infused Acetaminophen (Ofirmev Inj) 1,000 mg in 100 mls @ 250 mls/hr IV Q6HR [facility] Stop: 01/30/25 06:23 Last Admin: 01/30/25 05:15 Dose: 250 mls/hr Vancomycin HCl (Vancomycin/Water 1gm Ivpb) 200 mls @ 120 mls/hr IV X1 ONE Stop: 01/29/25 17:47 Last Admin: 01/29/25 18:11 Dose: Not Given Vancomycin/Sodium Chloride (Vancomycin/Ns 1 Gm Ivpb) 200 mls @ 120 mls/hr IV X1 ONE Stop: 01/29/25 17:54 Last Admin: 01/29/25 20:02 Dose: Not Given Piperacillin/Tazobactam/Dextrose (Zosyn) 3.375 gm in 50 mls @ 100 mls/hr IV X1 ONE Stop: 01/29/25 17:42 Last Infusion: 01/29/25 19:00 Dose: Infused Magnesium Sulfate (Magnesium Sulfate Ivpb) 2 gm in 50 mls @ 25 mls/hr IV X1 ONE Stop: 01/29/25 19:15 Last Admin: 01/29/25 21:46 Dose: 25 mls/hr Sodium Chloride (Ns) 250 mls @ 999 mls/hr IV .Q16M ONE Stop: 01/30/25 08:24 Last Admin: 01/30/25 08:10 Dose: 999 mls/hr Sodium Chloride (Ns) 250 mls @ 999 mls/hr IV .Q16M ONE Stop: 01/30/25 08:59 Last Admin: 01/30/25 08:50 Dose: 999 mls/hr Sevelamer Carbonate (Sevelamer Carbonate 800 Mg Tablet) 800 mg PO X1 ONE Stop: 01/30/25 07:34 Last Admin: 01/30/25 10:17 Dose: Not Given Sodium Bicarbonate (Sodium Bicarb Inj 8.4% 1 Meq/Ml 50 Ml Vial) 25 meq IV X1 ONE Stop: 01/29/25 20:27 Last Admin: 01/29/25 21:46 Dose: 25 meq Assessment & Plan Plan 69-year-old male with past medical history of hypertension, ESRD on hemodialysis with right tunneled cath T//, prostate cancer status post radical prostatectomy with bone mets curently on Xtandi admited for suspected CLABSI. Neuro Stable CVS Shock Patient presented with sepsis and got 1.5 L of fluid since admission. MAP has maintained until this morning when he had two reads of MAP of 50s Patient's lactate slightly increased from 1.2 to 2.0 and he remains on minimal O2 support. We agree with the 1L of fluids and continue monitoring vitals Resp AHRF Patient is requiring 2L of O2 on NC to saturate in the 90s CXR shows vascular congestion Patient will undergo dialysis GI Diarrhea Patient had one episode of non bloody diarrhea, likely from chemotherapy Continue to monitor Renal ESRD on HD Patient will undergo dialysis today Hx of Postate cancer Continue chemotherapy with xtandi Endocrine Stable ID/Skin Sepsis Patient met SIRs 4/4 criteria Preliminary blood cultures grew GNR bacteremia, follow up with final cultures UA is negative. Continue Zosyn Hematology Leukocytopenia WBC is 3.5 likely due to chemotherapy Continue to monitor for recurrent fevers Thank you for allowing us to be part of patient care. I discussed patient's care with medical education specialist, Dr Bartolo Vaca MD, PGY3 Attending Provider Attestation/Addendum Patient seen and examined with resident. Agree with above. In brief this is 69-year-old gentleman who presents to the ER for general malaise and fatigue. He was found to be febrile with an elevated white count. He was admitted for sepsis. This morning he had a rapid response due to hypotension. An ICU evaluation was requested. He was given a 500 cc bolus of fluid and responded well with maps above 65. He has a history of end-stage renal disease on hemodialysis. His right sided HD catheter was recently replaced about a week ago. On physical exam he is awake alert. Oropharynx is clear with no erythema or exudate noted, neck is supple with no JVD. Right side of the chest with a HD cath through the subclavian, there is no significant erythema or purulence surrounding the site. There is moderate discomfort on palpation. Lungs with some basilar posterior crackles on the right along with occasional expiratory wheeze, heart rate regular rhythmic, no bruits murmurs auscultated at time of exam, abdomen is soft nontender, bowel sounds present, no rebound or guarding. Extremities no significant edema, pulses palpable, no focal deficits. On review of the patient's labs he is noted to have significant white count above 60,000 and his blood cultures noted to be positive for gram-negative rods. His UA is not classic for a UTI however is not pristine either. Originally the thought process had midline sepsis however gram-negative rods are not typical for line related issues though not impossible. He is currently on Vanco and Zosyn. Will continue these medications until full identification of the organism. His hypotension has resolved and he is currently mentating appropriately. His lactic acid is noted to be within normal limits. At this point in time he appears hemodynamically stable for the floor. His maps are within acceptable parameters. Will give an additional liter of fluid should he require it. Currently he is appropriate for telemetry. Case was discussed with ICU team and the recommendations were relayed to the primary team Labs, imaging and records reviewed Approximately 55 minutes required for eval, exam, review, intervention, discussion formulation of plan of care for this acutely ill gentleman.
[2025-01-30 12:49] LABS: Hepatitis A Antibody IgM Non Reactive (Non React); Hepatitis B Core Antibody IgM Non Reactive (Non React); Hepatitis B Surface Ab NonReact(Not Immune) (Immune); Hepatitis B Surface Antigen Non Reactive (Non React); Hepatitis C Antibody Non Reactive (Non React)
[2025-01-30 13:10] LABS: Cocci Serology, IgM Positive (Negative)
[2025-01-30 13:12] LABS: Cocid Sro, CF/ID (UCD) NO CHG* See Sep Rpt
--- NOTE | 2025-01-30 13:35 | PD.RESCONSUL ---
HPI Data of Consult Requesting Physician: Gen Mclaughlin MD Admitting Provider: Gen Mclaughlin MD Attending Provider: Gen Mclaughlin MD Primary Care Provider: Andre Chow PA-C Consult Narrative Reason for consult: altered mental status, falls History of present illness: The patient is a 69-year-old male with a past medical history of hypertension, end-stage renal disease on dialysis //Tue following with Dr. Sandoval, prostate cancer status post prostatectomy with bone metastasis on Xtandi who was brought in due to altered mental status and falls. He recently had RIJ dialysis catheter replacement. Patient himself reports that he had a fall, but does not remember what happened to him, he only remembers being in the hospital. ED course: He was hemodynamically stable, tachycardic, tachypneic, febrile, saturating well on room air. Labs showed WBC count 3.5, hemoglobin 11.3, platelets 34, INR 1.1, ABG showed pH 7.3, pCO2 31, PO291. Sodium was 136, potassium 5.1, chloride 105, carbon dioxide 18.3, anion gap 13, BUN 52, creatinine 5.7, glucose 107, magnesium 1.3, procalcitonin 341.99. In the ED he was AAO x 2. Head CT was negative for acute intracranial pathology, CTA was negative for large vessel occlusion. Patient was admitted for sepsis most likely secondary to infected right internal jugular catheter. Neurology was consulted for altered mental status. 01/30/25: Patient was seen and examined by the bedside. He reports that he is usually uses hearing aid, but he does not have them with him. He is AOx3. Continues to receive antibiotics. cc:: cc: Gen Mclaughlin MD Review of Systems Review of Systems Systems Reviewed: All systems reviewed, normal except as documented Past Medical History Past Medical History CARDIAC: Positive Hypertension GENITOURINARY: Positive Genitourinary Disorders, Chronic Kidney Disease, Dialysis and Prostate Cancer OTHER HISTORY: Positive Prostate Cancer Exam Vital Signs Temp Pulse Resp BP Pulse Ox O2 Del Method O2 Flow Rate 97.7 F 85 15 108/56 L 98 Nasal Cannula 2 01/30/25 13:20 01/30/25 13:30 01/30/25 13:20 01/30/25 13:30 01/30/25 13:20 01/30/25 12:00 01/30/25 13:20 Narrative Exam Gen: Chronically ill-appearing male. HEENT: NCAT, PERRLA, EOMI, MMM, anicteric conjunctivae. CVS: normal S1 and S2. RRR. No M/R/G. Resp: CTA B/L. No rhonchi, rales, crackles or wheezing. Abd: soft, non-tender, non-distended. BS+ in all 4 quadrants. MSK: Good ROM in BUE & BLE. No edema or rash. Neuro: Bilateral hearing loss. Strength 5/5 in BUE & BLE. Alert and oriented x3. Psych: appropriate mood and affect. Results Labs 01/31/25 05:13 01/31/25 05:13 Labs: Short CBC 01/29/25 01/30/25 Range/Units 14:56 05:00 WBC 2.5 L 3.5 L (3.8-10.6) Thou/mm3 Hgb 12.8 L 11.3 L (13.5-16.0) g/dL Hct 37.4 L 33.9 L (41.0-53.0) % Plt Count 54 L 34 L D (140-440) Thou/mm3 BMP 01/29/25 01/30/25 14:56 05:00 Sodium 136 137 Potassium 5.1 4.8 Chloride 105 104 Carbon Dioxide 18.3 L 17.6 L BUN 52 H 58 H Creatinine 5.7 H* 6.2 H* D Glucose 107 H 70 L Calcium 8.6 7.8 L Cardiac Enzymes 01/29/25 01/29/25 01/29/25 Range/Units 14:56 21:12 23:30 Troponin I 0.075 H* 0.102 H* 0.103 H* (0.0-0.045) ng/mL 01/30/25 Range/Units 05:00 Troponin I 0.110 H* (0.0-0.045) ng/mL Liver Function 01/29/25 01/30/25 Range/Units 14:56 05:00 Total Bilirubin 0.4 0.5 (0.3-1.2) mg/dL AST 27 43 H (0-34) U/L ALT 7 L 11 (10-49) U/L Alkaline Phosphatase 77 64 (46-116) U/L Albumin 4.0 3.2 L D (3.4-4.8) gm/dL Urine 01/29/25 Range/Units 15:40 Urine Color Lt-Brown A (Lt Yel-Yel) Urine Clarity Hazy (Clear/Hazy) Urine pH 7.0 (5.0-7.0) Ur Specific [place] 1.021 (1.001-1.035) Urine Protein 2+ A (Neg - Trace) Urine Glucose (UA) Trace (Negative) ABG Interpretation ABG results: 01/29/25 01/30/25 17:25 11:00 ABG pH 7.30 L ABG pCO2 31 L ABG pO2 91 ABG HCO3 15 L ABG O2 Saturation 97 ABG Base Excess -10 L VBG pH 7.20 L VBG pCO2 46 VBG pO2 32 VBG Base Excess -10 L Quality Measures Quality Measures stroke Suspected type of Stroke: Unknown at this time (no stroke, CTs negative) Last known well (date): 01/29/25 Last known well (time): 08:00 Tenecteplase given: Reason(s) Tenecteplase not given: Unable to determine eligibility not given Rehab services: PT evaluation ordered VTE Prophylaxis: pharmaceutical Antithrombotic by day 2:: ordered Statin ordered: >75 y/o moderate or high intensity dose Anticoagulation ordered for A-fib or flutter (current or hx): not indicated and sepsis Current suspected stage: sepsis Possible source: unknown Blood cultures ordered: yes Antibiotic ordered: Yes Advance care planning discussed with:: other Medications Home Medications and Allergies Home Medications ?Medication ?Instructions ?Recorded ?Confirmed ?Type hydrochlorothiazide 25 mg tablet 25 mg PO QDAY 04/02/21 03/17/22 History losartan 100 mg tablet 100 mg PO QDAY 04/02/21 03/17/22 History Allergies Allergy/AdvReac Type Severity Reaction Status Date / Time No Known Allergies Allergy Verified 03/17/22 07:04 Visit Medications Acetaminophen (Acetaminophen 325 Mg Tablet) 650 mg PO Q6H PRN PRN Reason: Fever >100.3 or pain 1-3 Stop: 02/28/25 17:41 Albuterol/Ipratropium (Albuterol/Ipratropium (Duoneb) Rt Karolina 3 Ml Nebu) 3 ml INH Q4HR PRN PRN Reason: SHORTNESS OF BREATH OR WHEEZE Stop: 02/28/25 17:41 Aspirin (Aspirin Ec 81 Mg Tabec) 81 mg PO QDAY [facility] Stop: 03/01/25 08:59 Last Admin: 01/30/25 10:17 Dose: 81 mg Atorvastatin Calcium (Atorvastatin Calcium 20 Mg Tablet) 40 mg PO HS [facility] Stop: 02/28/25 20:59 Last Admin: 01/30/25 00:04 Dose: 40 mg Citric Acid/Sodium Citrate (Citric Acid/Sodium Citr 15 Ml Udc (Bicitra)) 30 ml PO BID [facility] Stop: 03/01/25 08:59 Last Admin: 01/30/25 10:16 Dose: 30 ml Gabapentin 100 mg/ Gabapentin (300 mg) 400 mg PO TID [facility] Stop: 02/28/25 21:59 Hydromorphone HCl (Hydromorphone Inj 2 Mg/Ml Vial) 0.25 mg IVP Q2H PRN PRN Reason: BREAKTHROUGH PAIN Stop: 02/03/25 17:41 Last Admin: 01/29/25 19:08 Dose: 0.25 mg Piperacillin Sod/Tazobactam (Sod 4.5 gm/ Sodium Chloride) 100 mls @ 200 mls/hr IV Q12HR [facility] Stop: 02/06/25 08:09 Last Admin: 01/30/25 08:50 Dose: 200 mls/hr Albumin Human (Albuminar-25 Ivpb) 25 gm in 100 mls @ 100 mls/hr IV PRN PRN PRN Reason: DIALYSIS Ondansetron HCl (Ondansetron Inj 2 Mg/Ml Inj 2 Ml) 4 mg IVP Q4HR PRN PRN Reason: NAUSEA OR VOMITING Stop: 02/28/25 14:44 Last Admin: 01/29/25 19:07 Dose: 4 mg Pharmacy Consult (Pharmacy To Consult Patient) 1 each XX QDAY PRN PRN Reason: CONSULT Stop: 02/28/25 17:59 Sevelamer Carbonate (Sevelamer Carbonate 800 Mg Tablet) 800 mg PO TIDWM [facility] Stop: 03/01/25 07:59 Last Admin: 01/30/25 13:04 Dose: 800 mg Vitamin B Complex/Vit C/Folic Acid (Vit B12/Vit C/Fa (Nephrovite) Tablet) 1 tab PO QDAY [facility] Stop: 03/01/25 08:59 Last Admin: 01/30/25 10:17 Dose: 1 tab Discontinued Medications Gabapentin (Gabapentin 100 Mg Capsule) 400 mg PO TID [facility] Stop: 02/28/25 21:59 Last Admin: 01/30/25 05:15 Dose: 400 mg Heparin Sodium (Porcine) (Heparin Sod Inj 1000 Unit/Ml Vial 10 Ml) 1,700 unit INDWELLCAT X1 ONE Stop: 01/29/25 17:02 Last Admin: 01/29/25 18:10 Dose: 1,700 unit Heparin Sodium (Porcine) (Heparin Sod Inj 5000 Unit/Ml Vial) 5,000 unit SC BID [facility] Stop: 02/12/25 20:59 Last Admin: 01/30/25 00:04 Dose: 5,000 unit Sodium Chloride (Ns) 1,000 mls @ 999 mls/hr IV .Q1H1M ONE Stop: 01/29/25 16:08 Last Infusion: 01/29/25 16:46 Dose: Infused Acetaminophen (Ofirmev Inj) 1,000 mg in 100 mls @ 250 mls/hr IV Q6HR [facility] Stop: 01/30/25 06:23 Last Admin: 01/30/25 05:15 Dose: 250 mls/hr Vancomycin HCl (Vancomycin/Water 1gm Ivpb) 200 mls @ 120 mls/hr IV X1 ONE Stop: 01/29/25 17:47 Last Admin: 01/29/25 18:11 Dose: Not Given Vancomycin/Sodium Chloride (Vancomycin/Ns 1 Gm Ivpb) 200 mls @ 120 mls/hr IV X1 ONE Stop: 01/29/25 17:54 Last Admin: 01/29/25 20:02 Dose: Not Given Piperacillin/Tazobactam/Dextrose (Zosyn) 3.375 gm in 50 mls @ 100 mls/hr IV X1 ONE Stop: 01/29/25 17:42 Last Infusion: 01/29/25 19:00 Dose: Infused Magnesium Sulfate (Magnesium Sulfate Ivpb) 2 gm in 50 mls @ 25 mls/hr IV X1 ONE Stop: 01/29/25 19:15 Last Admin: 01/29/25 21:46 Dose: 25 mls/hr Vancomycin/Sodium Chloride (Vancomycin/Ns 1 Gm Ivpb) 200 mls @ 120 mls/hr IV X1 ONE Stop: 01/30/25 11:39 Last Admin: 01/30/25 10:48 Dose: 120 mls/hr Sodium Chloride (Ns) 250 mls @ 999 mls/hr IV .Q16M ONE Stop: 01/30/25 08:24 Last Admin: 01/30/25 08:10 Dose: 999 mls/hr Sodium Chloride (Ns) 250 mls @ 999 mls/hr IV .Q16M ONE Stop: 01/30/25 08:59 Last Admin: 01/30/25 08:50 Dose: 999 mls/hr Lactated Ringer's (Lactated Ringers) 1,000 mls @ 999 mls/hr IV .Q1H1M ONE Stop: 01/30/25 11:47 Last Admin: 01/30/25 10:49 Dose: 999 mls/hr Pharmacy Consult (Vancomycin Pharmacy To Dose 1 Each Each) 1 each IV QDAY PRN PRN Reason: CONSULT Stop: 03/01/25 08:59 Sevelamer Carbonate (Sevelamer Carbonate 800 Mg Tablet) 800 mg PO X1 ONE Stop: 01/30/25 07:34 Last Admin: 01/30/25 10:17 Dose: Not Given Sodium Bicarbonate (Sodium Bicarb Inj 8.4% 1 Meq/Ml 50 Ml Vial) 25 meq IV X1 ONE Stop: 01/29/25 20:27 Last Admin: 01/29/25 21:46 Dose: 25 meq Assessment & Plan Plan The patient is a 69-year-old male with a past medical history of hypertension, end-stage renal disease on dialysis //Tue following with Dr. Sandoval, prostate cancer status post prostatectomy with bone metastasis on Xtandi who was brought in due to altered mental status and falls. #Acute encephalopathy, resolved #Ground level falls Most likely in the setting of sepsis. Inaging was negative foe acute intracranial pathology. Plan: - continue with antibiotics - continue with dialysis as scheduled - use of hearing aids - Family visitation - Natural sunlight during day hours - blood and urine cultures are pending - blood pressure control - physical therapy - avoid benzodiazepines, anticholinergics if possible - aspirin 81 mg qday #Likely sepsis secondary to infected RIJ catheter #ESRD on HD via RIJ PermCath // #Follows up with Dr. Sandoval. Missed last 2 dialysis dates #Troponinemia #History of Prostate cancer s/p radical prostatectomy with bone mets on hormonal therapy #Primary hypertension - management per primary team Plan of care discussed with attending Dr. Hamilton. Laly Bardales MD, PGY 1. Attending Provider Attestation/Addendum I personally have seen and examined the patient at the bedside and I agreed with resident's findings, assessment and plan of care. Patient is neurologically afocal, no need for additional workup. His mental status is likely from underlying sepsis and continue with current mgt as per primary team.
[2025-01-30 14:48] LABS: Lactate (Lactic Acid) 0.8 mMol/L (0.4-2.0)
--- NOTE | 2025-01-30 14:59 | PC.SS ---
Rounding Note: Patient receiving IV antibiotics. Positive blood culture. ICU upgraded not warranted at current time.
[2025-01-30] MEDS: ALBUMIN HUMAN 25% IVPB 25 GM/100 ML BTL IV (15:18)
[2025-01-30] MEDS: FLUCONAZOLE 100 MG TABLET 400 MG PO (17:10)
[2025-01-30] MEDS: GABAPENTIN 100 MG, GABAPENTIN 300 MG 400 MG PO ×2 (17:11→22:13)
[2025-01-30] MEDS: ACETAMINOPHEN 325 MG TABLET 650 MG PO (17:15)
[2025-01-30] MEDS: ALBUTEROL/IPRATROPIUM (Duoneb) RT SOL 3 ML NEBU INH (17:18)
[2025-01-30] MEDS: HYDROmorphone INJ 2 MG/ML VIAL 0.25 MG IVP (20:43)
[2025-01-31] VITALS (26 sets, daily range): BP systolic 90–134; BP diastolic 56–85; PULSE 75–109; RESP 16–23; TEMP 36–37.7; O2SAT 94–100; BMI 25.2; BMI 25.3
--- NOTE | 2025-01-31 02:32 | PC.NURSE ---
ATTEMPTED TO WEAN PT OFF OXYGEN. TRIAL ON ROOM AIR, PT WITH EYES CLOSED, RESP EVEN, UNLABORED. NO SIGNS OF DISTRESS- O2 SATS AT 83%. PT PLACED BACK ON 2L NC. O2 SATS NOW AT 96%
[2025-01-31] MEDS: ACETAMINOPHEN 325 MG TABLET 650 MG PO ×2 (05:25→12:34)
[2025-01-31] MEDS: GABAPENTIN 100 MG, GABAPENTIN 300 MG 400 MG PO ×3 (05:26→21:57)
[2025-01-31 06:20] LABS: Basophils % (Auto) 0 % (0-2.5); Eosinophils % (Auto) 1 % (0-10); Hematocrit 30.8 % (41.0-53.0); Hemoglobin 10.4 g/dL (13.5-16.0); Immature Granulocytes % (Auto) 13 % (0-0); Immature Granulocytes Auto 0.21 Thou/mm3 (0.00-0.00); Lymphocytes # (Auto) 0.2 Thou/mm3 (1.0-4.8); Lymphocytes % (Auto) 13 % (10-50); Mean Corpuscular HGB Conc 33.8 g/dl (31.0-37.0); Mean Corpuscular Hemoglobin 30.7 pg (25.0-35.0); Mean Corpuscular Volume 91 fL (80-100); Monocytes # (Auto) 0.2 Thou/mm3 (0.0-0.8); Monocytes % (Auto) 14 % (0-12); Neutrophils % (Auto) 59 % (37-80); Nucleated Red Blood Cell % 0 /100 WBC (0); RDW Standard Deviation 56.9 fL (35.1-43.9); Red Blood Count 3.39 Miln/mm3 (4.50-5.90)
[2025-01-31 06:25] LABS: Platelet Count 23 Thou/mm3 (140-440); Slide Review Platelets confirmed; White Blood Count 1.6 Thou/mm3 (3.8-10.6)
[2025-01-31 06:29] LABS: Alanine Aminotransferase 13 U/L (10-49); Albumin, Serum 3.3 gm/dL (3.4-4.8); Albumin/Globulin Ratio 1.3 (1.2-2.2); Alkaline Phosphatase 56 U/L (46-116); Anion Gap 13 (7-16); Aspartate Amino Transferase 48 U/L (0-34); BUN/Creatinine Ratio 9 Ratio (12-20); Bilirubin,Total 0.4 mg/dL (0.3-1.2); Blood Urea Nitrogen 43 mg/dL (9-23); Calcium 7.9 mg/dL (8.3-10.6); Calcium (Corrected) 8.5 mg/dL (8.5-10.1); Carbon Dioxide 25.1 mMol/L (20.0-31.0); Chloride 101 mMol/L (98-107); Creatinine (Component) 4.8 mg/dL (0.6-1.3); Estimated Creatinine Clearance 14.3 mL/min (>60); Globulin 2.5 gm/dL (2.3-3.5); Glucose 114 mg/dL (74-106); Magnesium 1.9 mg/dL (1.6-2.6); Osmolality,Calculated 289 (275-295); Phosphorous 5.1 mg/dL (2.4-5.1); Potassium 4.2 mMol/L (3.4-5.1); Sodium 139 mMol/L (136-145); Total Protein 5.8 gm/dL (5.7-8.2); Vancomycin,Random 10.8 mcg/mL; eGFR 12 See Note
[2025-01-31] MEDS: ALBUMIN HUMAN 25% IVPB 25 GM/100 ML BTL IV (08:06)
[2025-01-31] MEDS: VIT B12/Vit C/FA (Nephrovite) TABLET 1 TAB PO (08:17)
[2025-01-31] MEDS: FLUCONAZOLE 100 MG TABLET 400 MG PO (08:17)
[2025-01-31] MEDS: ASPIRIN EC 81 MG TABEC PO (08:17)
[2025-01-31] MEDS: SEVELAMER CARBONATE 800 MG TABLET PO ×3 (08:17→18:01)
[2025-01-31] MEDS: CITRIC ACID/SODIUM CITR 15 ML UDC (BICITRA) 30 ML PO ×2 (08:23→21:57)
[2025-01-31 09:15] LABS: Basophils % (Auto) 0 % (0-2.5); Eosinophils % (Auto) 3 % (0-10); Hemoglobin 9.7 g/dL (13.5-16.0); Immature Granulocytes % (Auto) 2 % (0-0); Immature Granulocytes Auto 0.02 Thou/mm3 (0.00-0.00); Lymphocytes # (Auto) 0.2 Thou/mm3 (1.0-4.8); Lymphocytes % (Auto) 14 % (10-50); Mean Corpuscular HGB Conc 33.4 g/dl (31.0-37.0); Mean Corpuscular Hemoglobin 31.3 pg (25.0-35.0); Mean Corpuscular Volume 94 fL (80-100); Monocytes # (Auto) 0.2 Thou/mm3 (0.0-0.8); Monocytes % (Auto) 15 % (0-12); Neutrophils # (Auto) 0.9 Thou/mm3 (1.8-7.7); Neutrophils % (Auto) 66 % (37-80); Nucleated Red Blood Cell % 0 /100 WBC (0); RDW Standard Deviation 58.4 fL (35.1-43.9)
[2025-01-31 09:44] LABS: Platelet Count 25 Thou/mm3 (140-440); White Blood Count 1.3 Thou/mm3 (3.8-10.6)
--- NOTE | 2025-01-31 10:08 | XR_ITS ---
Examination: CT chest with intravenous contrast CT abdomen with intravenous contrast CT pelvis with intravenous contrast 2-D coronal and sagittal reconstructions Time of exam: January 31, 2025 1210 hours INDICATIONS: Sepsis alert today, pancytopenia, generalized abdominal pain 5 days CTDI: vol (mGy) : 7.45 DLP: (mGycm): 575 Technique: Multiple axial images of the chest, abdomen and pelvis with intravenous contrast, 3.0 mm slice thickness. Images obtained post intravenous injection Isovue 370 60 cc. 2-D sagittal and coronal reconstructions. Low dose protocols were performed. One or more of the following dose reduction techniques were used; automated exposure control, adjustment of the mA and/or KV according to patient size, use of iterative reconstruction technique. Findings: No thoracic aortic aneurysm dilatation No pulmonary artery emboli on this non-CTA study Significant calcification left main left anterior descending coronary arteries No paratracheal tracheobronchial or bronchopulmonary adenopathy Atelectasis in the left upper lobe Moderate vascular congestion No lobar pneumonia Hepatomegaly 21 cm, splenomegaly 18 cm No visualized splenic lesion 6 mm anterior liver cyst Gallbladder wall is calcified and mildly thickened No pancreatic or adrenal mass Prominent renal parenchymal scar formation, 3 mm right renal calculus 2 mm right renal calculus Aorta normal size No abdominal or pelvic abscess Normal appendix No bowel obstruction Scattered colonic diverticulosis Contracted urinary bladder Severe osteopenia IMPRESSION: Negative for pneumonia Moderate vascular congestion Significant hepatosplenomegaly Recommend hepatobiliary sonography follow-up to exclude gallbladder wall thickening Nonobstructing right renal calculi No abdominal or pelvic abscess
--- NOTE | 2025-01-31 10:11 | ESPR_ITS ---
Documentation for date of: 01/31/25 Subjective Subjective Interval history: No events overnight. This morning patient's appears improved from yesterday but complains of generalized soreness and right shoulder pain. BP 110/75 [86], pulse 98. WBC decreased to 1.3, PLT decreased to 34 and Bicarb improved to 25.1 from 17.6. Blood cultures grew GNR in both bottles preliminary, urine culture showed no bacterial growth. CT chest/abdomen/pelvis with contrast was ordered to further investigate neutropenia. Currently undergoing hemodialysis with a goal of 1 L ultrafiltration, will likely receive another session of hemodialysis tomorrow after IV contrast administration from CT. We will also consult hematology, Dr. Burt for neutropenia Exam Vital Signs Temp Pulse Resp BP Pulse Ox O2 Del Method O2 Flow Rate 97.0 F 88 21 H 104/64 97 Nasal Cannula 2 01/31/25 08:00 01/31/25 10:00 01/31/25 08:00 01/31/25 10:00 01/31/25 08:00 01/31/25 08:00 01/31/25 08:00 Narrative Exam Constitutional Alert, oriented x 2 [person and place], mild distress. Elderly male HEENT Vision grossly intact. Patent nares. Trachea midline. Hearing impaired. Respiratory Chest normal on inspection, RIJ catheter noted. Exit site clean and mild crackles at bases bilaterally?improving Cardiovascular S1 and S2 audible, RRR. No murmurs carotid bruit. No gross JVD. Abdominal Soft and non tender to palpation in all quadrants, however guarding in all quadrants?improving. BS + Genitourinary No bladder tenderness, no flank pain. Normal to palpation Musculoskeletal Extremities tone within normal limits. No LE edema. Skin Warm, dry and intact. No apparent lesions. Psychiatric Patient has good affect, is cooperative Neurological CN II - XII grossly intact. Extremity motor and sensation grossly intact. 1A: Level of Consciousness -alert +0 1B: Ask Month and Age -both questions correct +0 1C: Blink Eyes & Squeeze Hands - Performs Both Tasks + 0 2: Test Horizontal Extraocular Movements - Normal + 0 3: Test Visual Bernstein -normal +0 4: Test Facial Palsy (Use Grimace if Obtunded) -no asymmetry +0 5A: Test Left Arm Motor Drift - No Drift for 10 Seconds + 0 5B: Test Right Arm Motor Drift - No Drift for 10 Seconds + 0 6A: Test Left Leg Motor Drift - No Drift for 5 Seconds + 0 6B: Test Right Leg Motor Drift - No Drift for 5 Seconds + 0 7: Test Limb Ataxia (FNF/Heel-Acosta) - No Ataxia + 0 8: Test Sensation - Normal; No sensory loss + 0 9: Test Language/Aphasia - Severe Aphasia: No aphasia +0 10: Test Dysarthria - Normal + 0 11: Test Extinction/Inattention - No abnormality + 0 NIHSS Score: +0 Objective Labs 02/01/25 05:43 02/01/25 05:43 Labs: Laboratory Results - last 24 hr 01/29/25 01/30/25 01/30/25 21:12 11:00 14:32 WBC RBC Hgb Hct MCV MCH MCHC RDW Std Deviation Plt Count Neut % (Auto) Lymph % (Auto) Page % (Auto) Eos % (Auto) Baso % (Auto) Neut # (Auto) Lymph # (Auto) Page # (Auto) Eos # (Auto) Baso # (Auto) Immature Gran # (Auto) Absolute Nucleated RBC Immature Gran % Nucleated RBC % VBG pH 7.20 L VBG pCO2 46 VBG pO2 32 VBG O2 Sat (Ten) 49 L VBG Base Excess -10 L Sodium Potassium Chloride Carbon Dioxide Anion Gap BUN Creatinine Estim Creat Clear Calc eGFR BUN/Creatinine Ratio Glucose Calculated Osmolality Lactic Acid 2.0 0.8 Calcium Corrected Calcium Phosphorus Magnesium Total Bilirubin AST ALT Alkaline Phosphatase Total Protein Albumin Globulin Albumin/Globulin Ratio Random Vancomycin Coccidioides IgM Ab Positive A Hepatitis A IgM Ab Non Reactive Hep Bs Antigen Non Reactive Hep Bs Antibody NonReact(Not Immune) L Hep B Core IgM Ab Non Reactive Hepatitis C Antibody Non Reactive Misc Test Result 01/31/25 01/31/25 05:13 08:31 WBC 1.6 L D 1.3 L RBC 3.39 L 3.10 L Hgb 10.4 L 9.7 L Hct 30.8 L 29.0 L MCV 91 94 MCH 30.7 31.3 MCHC 33.8 33.4 RDW Std Deviation 56.9 H 58.4 H Plt Count 23 L* D 25 L* Neut % (Auto) 59 66 Lymph % (Auto) 13 14 Page % (Auto) 14 H 15 H Eos % (Auto) 1 3 Baso % (Auto) 0 0 Neut # (Auto) 1.0 L 0.9 L Lymph # (Auto) 0.2 L 0.2 L Page # (Auto) 0.2 0.2 Eos # (Auto) 0.0 0.0 Baso # (Auto) 0.0 0.0 Immature Gran # (Auto) 0.21 H 0.02 H Absolute Nucleated RBC 0.00 0.00 Immature Gran % 13 H 2 H Nucleated RBC % 0 0 VBG pH VBG pCO2 VBG pO2 VBG O2 Sat (Ten) VBG Base Excess Sodium 139 Potassium 4.2 D Chloride 101 Carbon Dioxide 25.1 Anion Gap 13 BUN 43 H Creatinine 4.8 H* D Estim Creat Clear Calc 14.3 L eGFR 12 L* BUN/Creatinine Ratio 9 L Glucose 114 H D Calculated Osmolality 289 Lactic Acid Calcium 7.9 L Corrected Calcium 8.5 Phosphorus 5.1 Magnesium 1.9 Total Bilirubin 0.4 AST 48 H ALT 13 Alkaline Phosphatase 56 Total Protein 5.8 Albumin 3.3 L Globulin 2.5 Albumin/Globulin Ratio 1.3 Random Vancomycin 10.8 Coccidioides IgM Ab Hepatitis A IgM Ab Hep Bs Antigen Hep Bs Antibody Hep B Core IgM Ab Hepatitis C Antibody Misc Test Result Platelets confirmed ABG Interpretation ABG results: 01/29/25 01/30/25 17:25 11:00 ABG pH 7.30 L ABG pCO2 31 L ABG pO2 91 ABG HCO3 15 L ABG O2 Saturation 97 ABG Base Excess -10 L VBG pH 7.20 L VBG pCO2 46 VBG pO2 32 VBG Base Excess -10 L Quality Measures Quality Measures stroke Suspected type of Stroke: Unknown at this time (no stroke, CTs negative) Last known well (date): 01/29/25 Last known well (time): 08:00 Tenecteplase given: Reason(s) Tenecteplase not given: Unable to determine eligibility not given Rehab services: PT evaluation ordered and Speech Language Pathology eval ordered (not indicated) VTE Prophylaxis: not indicated Antithrombotic by day 2:: contraindicated (describe) (Thrombocytopenia) Statin ordered: <75 y/o high intensity dose Anticoagulation ordered for A-fib or flutter (current or hx): contraindicated and sepsis Current suspected stage: sepsis Possible source: unknown Blood cultures ordered: yes Antibiotic ordered: Yes Advance care planning discussed with:: patient Assessment & Plan Assessment Current Active Medications: Generic Name Dose Route Start Last Admin Trade Name Freq PRN Reason Stop Dose Admin Acetaminophen 650 mg 01/29/25 17:42 01/31/25 05:25 Acetaminophen 325 Mg Tablet PO 02/28/25 17:41 650 mg Q6H PRN Administration Fever >100.3 or pain 1-3 Albuterol/Ipratropium 3 ml 01/29/25 17:42 01/30/25 17:18 Albuterol/Ipratropium (Duoneb) Rt Karolina 3 Ml Nebu INH 02/28/25 17:41 3 ml Q4HR PRN Administration SHORTNESS OF BREATH OR WHEEZE Aspirin 81 mg 01/30/25 09:00 01/31/25 08:17 Aspirin Ec 81 Mg Tabec PO 03/01/25 08:59 81 mg QDAY JENS Administration Atorvastatin Calcium 40 mg 01/29/25 21:00 01/30/25 20:30 Atorvastatin Calcium 20 Mg Tablet PO 02/28/25 20:59 40 mg HS JENS Administration Citric Acid/Sodium Citrate 30 ml 01/30/25 09:00 01/31/25 08:23 Citric Acid/Sodium Citr 15 Ml Udc (Bicitra) PO 03/01/25 08:59 30 ml BID JENS Administration Fluconazole 400 mg 01/30/25 15:30 01/31/25 08:17 Fluconazole 100 Mg Tablet PO 02/06/25 15:29 400 mg QDAY JENS Administration Gabapentin 100 mg/ Gabapentin 400 mg 01/30/25 14:00 01/31/25 05:26 300 mg PO 02/28/25 21:59 400 mg TID JENS Administration Heparin Sodium (Porcine) 3,300 unit 01/30/25 15:12 Heparin Sod Inj 1000 Unit/Ml Vial 10 Ml INDWELLCAT 02/13/25 15:11 X1 PRN DIALYSIS Hydromorphone HCl 0.25 mg 01/29/25 17:42 01/30/25 20:43 Hydromorphone Inj 2 Mg/Ml Vial IVP 02/03/25 17:41 0.25 mg Q2H PRN Administration BREAKTHROUGH PAIN Piperacillin Sod/Tazobactam 100 mls @ 200 mls/hr 01/30/25 08:10 01/30/25 20:29 Sod 4.5 gm/ Sodium Chloride IV 02/06/25 08:09 200 mls/hr Q12HR JENS Administration Albumin Human 25 gm in 100 mls @ 100 mls/hr 01/30/25 11:00 01/31/25 08:06 Albuminar-25 Ivpb IV 100 mls/hr PRN PRN Administration DIALYSIS Ondansetron HCl 4 mg 01/29/25 14:45 01/29/25 19:07 Ondansetron Inj 2 Mg/Ml Inj 2 Ml IVP 02/28/25 14:44 4 mg Q4HR PRN Administration NAUSEA OR VOMITING Pharmacy Consult 1 each 01/29/25 18:00 Pharmacy To Consult Patient XX 02/28/25 17:59 QDAY PRN CONSULT Sevelamer Carbonate 800 mg 01/30/25 08:00 01/31/25 08:17 Sevelamer Carbonate 800 Mg Tablet PO 03/01/25 07:59 800 mg TIDWM JENS Administration Vitamin B Complex/Vit C/Folic Acid 1 tab 01/30/25 09:00 01/31/25 08:17 Vit B12/Vit C/Fa (Nephrovite) Tablet PO 03/01/25 08:59 1 tab QDAY JENS Administration Plan Patient is a 69-year-old male with a past medical history significant for primary hypertension, ESRD on HD via RIJ PermCath T//S follows with Dr. Sandoval and prostate cancer s/p radical prostatectomy [2013] with bone mets currently on hormonal therapy [Xtandi] follows at [facility] in [place] presenting with a chief complaint of confusion and falls. Patient will be admitted for workup and management of likely sepsis secondary to infected RIJ catheter. Likely sepsis secondary to GNR bacteremia Coccidiomycosis Patient presented with SIRS 4/4?pulse 122, RR 39, temp 102F and WBC 2.5 with his dialysis catheter as possible source of infection. Endorgan damage of elevated troponin. Chest x-ray showed moderate vascular congestion, RIJ dialysis catheter and no signs of consolidation. Pro-Levi elevated at 341.99 Cocci IgM positive Sepsis due to [GNR bacteremia] with acute sepsis-related organ dysfunction as evidence by [hypotension and troponinemia]. Urine culture negative?final Received 2 days of vancomycin IV from 01/29 - 01/30 BP 110/75 [86], pulse 98. WBC decreased to 1.3, PLT decreased to 34 and Bicarb improved to 25.1 from 17.6. Blood cultures grew GNR in both bottles preliminary, urine culture showed no bacterial growth. CT chest/abdomen/pelvis with contrast was ordered to further investigate neutropenia. Currently undergoing hemodialysis with a goal of 1 L ultrafiltration, will likely receive another session of hemodialysis tomorrow after IV contrast administration from CT. We will also consult hematology, Dr. Burt for neutropenia Plan: ? Pending speciation of blood cultures. ? Pending transthoracic echocardiogram ordered to rule out infective endocarditis ? Continue Zosyn 4.5 g IV twice daily on [01/30? ? Continue fluconazole 400 Mg p.o. daily ? Consulted route sales specialist, Dr. Mcfarland. Appreciate recommendations Acute diarrhea Patient had numerous episodes of watery diarrhea since yesterday. C. difficile negative DDx: Viral gastroenteritis, medication side effect, parasitic infection Plan: ? Stool for culture, WBC, ova/cyst/parasites, calprotectin and Giardia ordered ? Chest/abdomen/pelvis CT ordered to further investigate etiology Pancytopenia Neutropenia?worsening Thrombocytopenia?worsening Hb 10.4, WBC 1.6, PLT 23 ANC 1.129 Patient has no signs of active bleeding. No spontaneous petechiae, purpura noted on skin exam, also no signs of blood in the stool. Patient no longer produces urine as he is on hemodialysis Plan: ? Reverse isolation precautions ? Bleeding precautions ? No IM injections ? Monitor for signs and symptoms of bleeding ? Peripheral blood smear ordered ? Entry Writer, Dr. Burt consulted. Appreciate recommendations ESRD on HD via [facility] T// Follows up with Dr. Sandoval. Missed last 2 dialysis dates Scheduled for hemodialysis today Plan: ? Hemodialysis as per nephrology ? Renally dose medications ? Avoid nephrotoxic agents ? Nephrology, Dr. Gotti consulted and closely following the case. Appreciate recommendations Acute encephalopathy, likely metabolic?resolved Ground-level falls DDx: Sepsis, TIA, CVA, medication side effect Patient presented with confusion which is now resolving but no localizing deficits. CT brain and CTA were both negative for any acute findings NIHSS +0 Plan: - Neuro checks q 4H - Head of bed elevated to 30 degrees - PT/OT referrals placed - Seizure precautions in place - Allow permissive HTN. Antihypertensives if BP >220/120, with a goal of reduction in BP during the first 24 hours - HbA1C, Lipid panel, TSH ordered - PRN Acetaminophen 650mg to avoid hyperthermia - DVT Prophylaxis with Heparin 5000 U SC BID ? Aspirin 81 Mg p.o. daily as per teleneurology recommendation - Dr Hamilton consulted, pending in-house Neurology recommendations Troponinemia?resolved DDx: ESRD, sepsis, NSTEMI Troponin increased from 0.102 to 0.11 Plan: ? No need to further trend. History of Prostate cancer s/p radical prostatectomy with bone mets on hormonal therapy On Xtandi as outpatient. Follows [facility] in [place] Plan: ? Continue outpatient follow-up Primary hypertension Plan: ? Antihypertensives on hold due to sepsis Health maintenance: Disposition: IV antibiotics, fluconazole. Hemodialysis as per nephrology. Pending hematology recommendations. Anticipate discharge within next 24 to 48 hours Diet: Renal, 1500 cc fluid restriction Lines: pIVs GI Prophylaxis: None Thrombo Prophylaxis: Heparin Code status: FULL CODE Plan of care discussed with Attending Dr. Mclaughlin and PGY2 Dr. Aidan Farah MD PGY 1 Disclaimer: This note was dictated by speech recognition. Minor errors in medical anthropology director may be present due to voice recognition software. Attending Provider Attestation/Addendum I reviewed labs, imaging, EKG, home medications and prior available records. Face to face evaluation was performed by me. I have personally examined the patient and discussed assessment and plan with the IM team. I reviewed the resident note and agree with the plan with exceptions as below. Acute hypotension, resolved Acute encephalopathy resolved Acute febrile illness Gram-negative sepsis Coccidioidomycosis Acute diarrhea ESRD on hemodialysis Pancytopenia Elevated troponin/type II non-STEMI, likely demand ischemia in setting of acute febrile illness Plan: Cocci IgM is positive. Started fluconazole Follow-up urine and blood cultures: Showing gram-negative rods. Continue Zosyn. Ordered CT of the chest/abdomen/pelvis that showed no acute source of infection Trend troponin: Peaked Ordered C. difficile Tylenol as needed for fevers Consulted hematology given the worsening pancytopenia Monitor CBC Hemodialysis per nephrology recommendations
[2025-01-31] MEDS: HEPARIN SOD INJ 1000 UNIT/ML VIAL 10 ML 3300 UNIT INDWELLCAT (11:06)
[2025-01-31 11:24] LABS: Path Review Blood Smear Sent to Pathologist; Slide Review Platelets confirmed
[2025-01-31 11:35] LABS: Clostridium Difficile PCR Negative (Negative)
[2025-01-31] MEDS: PIPER/TAZO INJ 4.5 GM in SODIUM CHLORIDE 0.9% (POP) 100 ML IV ×2 (12:41→21:58)
--- NOTE | 2025-01-31 12:41 | PC.NURSE ---
Zosyn given late due to patient being dialyzed. Zosyn given after dialysis completed.
--- NOTE | 2025-01-31 13:03 | PD.NEPHCONS ---
History of Present Illness Data of Consult Requesting Physician: Gen Mclaughlin MD Primary Care Provider: Andre Chow PA-C Consult Narrative History of present illness: 69-year-old male with a past medical history significant for primary hypertension, [facility] prostate cancer s/p radical prostatectomy [2014] with bone mets currently on hormonal therapy [Xtandi] follows at [facility] in [place] presenting with a chief complaint of confusion and falls. Nephrology is called to arrange HD. pt c/o SOB cc:: cc: Gen Mclaughlin MD Review of Systems Review of Systems Systems Reviewed: All systems reviewed, normal except as documented Meds Home Medications and Allergies Home Medications ?Medication ?Instructions ?Recorded ?Confirmed ?Type hydrochlorothiazide 25 mg tablet 25 mg PO QDAY 04/02/21 03/17/22 History losartan 100 mg tablet 100 mg PO QDAY 04/02/21 03/17/22 History Allergies Allergy/AdvReac Type Severity Reaction Status Date / Time No Known Allergies Allergy Verified 03/17/22 07:04 Exam Vital Signs Temp Pulse Resp BP Pulse Ox O2 Del Method O2 Flow Rate 98.9 F 98 23 H 110/75 99 Nasal Cannula 2 01/31/25 12:00 01/31/25 12:00 01/31/25 12:00 01/31/25 12:00 01/31/25 12:00 01/31/25 12:00 01/31/25 12:00 Narrative Exam heart s1, s2 chest bilateral basal crackles Chest catheter exit site red, positive discharge, improving Results Labs 01/31/25 08:31 01/31/25 05:13 Labs: Short CBC 01/31/25 01/31/25 Range/Units 05:13 08:31 WBC 1.6 L D 1.3 L (3.8-10.6) Thou/mm3 Hgb 10.4 L 9.7 L (13.5-16.0) g/dL Hct 30.8 L 29.0 L (41.0-53.0) % Plt Count 23 L* D 25 L* (140-440) Thou/mm3 BMP 01/31/25 05:13 Sodium 139 Potassium 4.2 D Chloride 101 Carbon Dioxide 25.1 BUN 43 H Creatinine 4.8 H* D Glucose 114 H D Calcium 7.9 L Liver Function 01/31/25 Range/Units 05:13 Total Bilirubin 0.4 (0.3-1.2) mg/dL AST 48 H (0-34) U/L ALT 13 (10-49) U/L Alkaline Phosphatase 56 (46-116) U/L Albumin 3.3 L (3.4-4.8) gm/dL ABG Interpretation ABG results: 01/29/25 01/30/25 17:25 11:00 ABG pH 7.30 L ABG pCO2 31 L ABG pO2 91 ABG HCO3 15 L ABG O2 Saturation 97 ABG Base Excess -10 L VBG pH 7.20 L VBG pCO2 46 VBG pO2 32 VBG Base Excess -10 L Assessment & Plan Assessment and plan (1) ESRD (end stage renal disease) on dialysis: Status: Acute Assessment and plan: will continue dialysis as needed TDC exit site is improving (2) Sepsis: Status: Acute
--- NOTE | 2025-01-31 19:10 | PC.NURSE ---
Spoke with MD Sandoval regarding Dialysis plan for 02/[address] to [address] having CT with contrast today 01/31. MD Sandoval stated that he planned on ordering dialysis for 02/01, Hospitalist update on plan.
[2025-01-31 21:28] LABS: Basophils % (Auto) 1 % (0-2.5); Eosinophils # (Auto) 0.1 Thou/mm3 (0.0-0.5); Eosinophils % (Auto) 5 % (0-10); Hematocrit 30.2 % (41.0-53.0); Immature Granulocytes % (Auto) 5 % (0-0); Immature Granulocytes Auto 0.09 Thou/mm3 (0.00-0.00); Lymphocytes # (Auto) 0.4 Thou/mm3 (1.0-4.8); Lymphocytes % (Auto) 20 % (10-50); Mean Corpuscular HGB Conc 33.1 g/dl (31.0-37.0); Mean Corpuscular Hemoglobin 30.4 pg (25.0-35.0); Mean Corpuscular Volume 92 fL (80-100); Monocytes # (Auto) 0.4 Thou/mm3 (0.0-0.8); Monocytes % (Auto) 22 % (0-12); Neutrophils # (Auto) 0.9 Thou/mm3 (1.8-7.7); Neutrophils % (Auto) 47 % (37-80); Nucleated Red Blood Cell % 0 /100 WBC (0); RDW Standard Deviation 58.3 fL (35.1-43.9); Red Blood Count 3.29 Miln/mm3 (4.50-5.90)
[2025-01-31 21:32] LABS: White Blood Count 1.8 Thou/mm3 (3.8-10.6)
[2025-01-31 21:34] LABS: Platelet Count 23 Thou/mm3 (140-440)
[2025-01-31] MEDS: ATORVASTATIN CALCIUM 20 MG TABLET 40 MG PO (21:56)
[2025-01-31 23:05] LABS: Slide Review Platelets confirmed
--- NOTE | 2025-01-31 23:46 | PD.NEUROPROG ---
Documentation for date of: 01/31/25 Subjective Subjective Interval history: Patient was seen in telemetry today with his son at the bedside, noted to be resting after dinner. Exam - Neurology Vital Signs Temp Pulse Resp BP Pulse Ox O2 Del Method O2 Flow Rate 98.4 F 75 17 117/76 100 Nasal Cannula 2 01/31/25 19:58 01/31/25 19:58 01/31/25 19:58 01/31/25 19:58 01/31/25 19:58 01/31/25 19:58 01/31/25 19:58 Narrative Exam Gen: Chronically ill-appearing male in NAD. HEENT: NCAT, PERRLA, EOMI, MMM, anicteric conjunctivae. CVS: normal S1 and S2. RRR. No M/R/G. Resp: CTA B/L. No rhonchi, rales, crackles or wheezing. Abd: soft, non-tender, non-distended. BS+ in all 4 quadrants. MSK: Good ROM in BUE & BLE. No edema or rash. Neuro: Bilateral hearing loss. Strength 5/5 in BUE & BLE. Resting at present Psych: appropriate mood and affect Objective Labs 01/31/25 21:01 01/31/25 05:13 Labs: Laboratory Results - last 24 hr 01/30/25 01/31/25 01/31/25 20:55 05:13 08:31 WBC 1.6 L D 1.3 L RBC 3.39 L 3.10 L Hgb 10.4 L 9.7 L Hct 30.8 L 29.0 L MCV 91 94 MCH 30.7 31.3 MCHC 33.8 33.4 RDW Std Deviation 56.9 H 58.4 H Plt Count 23 L* D 25 L* Neut % (Auto) 59 66 Lymph % (Auto) 13 14 Andrews % (Auto) 14 H 15 H Eos % (Auto) 1 3 Baso % (Auto) 0 0 Neut # (Auto) 1.0 L 0.9 L Lymph # (Auto) 0.2 L 0.2 L Andrews # (Auto) 0.2 0.2 Eos # (Auto) 0.0 0.0 Baso # (Auto) 0.0 0.0 Immature Gran # (Auto) 0.21 H 0.02 H Absolute Nucleated RBC 0.00 0.00 Immature Gran % 13 H 2 H Nucleated RBC % 0 0 Smear Path Review Sent to Pathologist Sodium 139 Potassium 4.2 D Chloride 101 Carbon Dioxide 25.1 Anion Gap 13 BUN 43 H Creatinine 4.8 H* D Estim Creat Clear Calc 14.3 L eGFR 12 L* BUN/Creatinine Ratio 9 L Glucose 114 H D Calculated Osmolality 289 Calcium 7.9 L Corrected Calcium 8.5 Phosphorus 5.1 Magnesium 1.9 Total Bilirubin 0.4 AST 48 H ALT 13 Alkaline Phosphatase 56 Total Protein 5.8 Albumin 3.3 L Globulin 2.5 Albumin/Globulin Ratio 1.3 Stl C. diff Tox B Gene Negative Random Vancomycin 10.8 Misc Test Result Platelets confirmed Platelets confirmed 01/31/25 21:01 WBC 1.8 L RBC 3.29 L Hgb 10.0 L Hct 30.2 L MCV 92 MCH 30.4 MCHC 33.1 RDW Std Deviation 58.3 H Plt Count 23 L* Neut % (Auto) 47 Lymph % (Auto) 20 Andrews % (Auto) 22 H Eos % (Auto) 5 Baso % (Auto) 1 Neut # (Auto) 0.9 L Lymph # (Auto) 0.4 L Andrews # (Auto) 0.4 Eos # (Auto) 0.1 Baso # (Auto) 0.0 Immature Gran # (Auto) 0.09 H Absolute Nucleated RBC 0.00 Immature Gran % 5 H Nucleated RBC % 0 Smear Path Review Sodium Potassium Chloride Carbon Dioxide Anion Gap BUN Creatinine Estim Creat Clear Calc eGFR BUN/Creatinine Ratio Glucose Calculated Osmolality Calcium Corrected Calcium Phosphorus Magnesium Total Bilirubin AST ALT Alkaline Phosphatase Total Protein Albumin Globulin Albumin/Globulin Ratio Stl C. diff Tox B Gene Random Vancomycin Misc Test Result Platelets confirmed ABG Interpretation ABG results: 01/29/25 01/30/25 17:25 11:00 ABG pH 7.30 L ABG pCO2 31 L ABG pO2 91 ABG HCO3 15 L ABG O2 Saturation 97 ABG Base Excess -10 L VBG pH 7.20 L VBG pCO2 46 VBG pO2 32 VBG Base Excess -10 L Assessment & Plan Assessment and plan (1) ESRD (end stage renal disease) on dialysis: Status: Acute (2) Sepsis: Status: Acute Additional Assessment & Plan Additional Plan: The patient is a 69-year-old male with a past medical history of hypertension, end-stage renal disease on dialysis //Tue following with Dr. Sandoval, prostate cancer status post prostatectomy with bone metastasis on Xtandi who was brought in due to altered mental status and falls. #Acute encephalopathy, resolved #Ground level falls Most likely in the setting of sepsis. CT head was negative foe acute intracranial pathology. Plan: - continue with antibiotics - continue with dialysis as scheduled - use of hearing aids - Family visitation - Natural sunlight during day hours - FU with blood and urine cultures - blood pressure control - physical therapy - avoid benzodiazepines, anticholinergics if possible - aspirin 81 mg qday #Likely sepsis secondary to infected RIJ catheter #ESRD on HD via RIJ PermCath // #Troponinemia #History of Prostate cancer s/p radical prostatectomy with bone mets on hormonal therapy #Primary hypertension - management per primary team
[2025-02-01] VITALS (23 sets, daily range): BP systolic 91–145; BP diastolic 65–88; PULSE 71–98; RESP 18–24; TEMP 35.7–38.2; O2SAT 92–97; BMI 25.3; BMI 15.0
[2025-02-01] MEDS: GABAPENTIN 100 MG, GABAPENTIN 300 MG 400 MG PO ×3 (05:17→21:17)
[2025-02-01 06:19] LABS: Basophils % (Auto) 1 % (0-2.5); Eosinophils # (Auto) 0.1 Thou/mm3 (0.0-0.5); Eosinophils % (Auto) 5 % (0-10); Hematocrit 31.5 % (41.0-53.0); Hemoglobin 9.9 g/dL (13.5-16.0); Immature Granulocytes % (Auto) 1 % (0-0); Immature Granulocytes Auto 0.02 Thou/mm3 (0.00-0.00); Lymphocytes # (Auto) 0.2 Thou/mm3 (1.0-4.8); Lymphocytes % (Auto) 12 % (10-50); Mean Corpuscular HGB Conc 31.4 g/dl (31.0-37.0); Mean Corpuscular Hemoglobin 30.7 pg (25.0-35.0); Mean Corpuscular Volume 98 fL (80-100); Monocytes # (Auto) 0.3 Thou/mm3 (0.0-0.8); Monocytes % (Auto) 22 % (0-12); Neutrophils # (Auto) 0.8 Thou/mm3 (1.8-7.7); Neutrophils % (Auto) 59 % (37-80); Nucleated Red Blood Cell % 0 /100 WBC (0); RDW Standard Deviation 62.4 fL (35.1-43.9); Red Blood Count 3.22 Miln/mm3 (4.50-5.90)
[2025-02-01 06:29] LABS: White Blood Count 1.4 Thou/mm3 (3.8-10.6)
[2025-02-01 06:53] LABS: Alanine Aminotransferase 10 U/L (10-49); Albumin, Serum 3.4 gm/dL (3.4-4.8); Albumin/Globulin Ratio 1.3 (1.2-2.2); Alkaline Phosphatase 57 U/L (46-116); Anion Gap 12 (7-16); Aspartate Amino Transferase 38 U/L (0-34); BUN/Creatinine Ratio 7 Ratio (12-20); Bilirubin,Total 0.5 mg/dL (0.3-1.2); Blood Urea Nitrogen 29 mg/dL (9-23); Calcium 8.4 mg/dL (8.3-10.6); Calcium (Corrected) 8.9 mg/dL (8.5-10.1); Carbon Dioxide 26.1 mMol/L (20.0-31.0); Chloride 100 mMol/L (98-107); Creatinine (Component) 4.2 mg/dL (0.6-1.3); Estimated Creatinine Clearance 15.8 mL/min (>60); Globulin 2.6 gm/dL (2.3-3.5); Glucose 99 mg/dL (74-106); Osmolality,Calculated 281 (275-295); Phosphorous 4.3 mg/dL (2.4-5.1); Platelet Count 38 Thou/mm3 (140-440); Potassium 4.1 mMol/L (3.4-5.1); Sodium 138 mMol/L (136-145); eGFR 14 See Note
[2025-02-01 06:54] LABS: Slide Review Platelets confirmed
[2025-02-01] MEDS: SEVELAMER CARBONATE 800 MG TABLET PO ×3 (09:24→17:24)
[2025-02-01] MEDS: CITRIC ACID/SODIUM CITR 15 ML UDC (BICITRA) 30 ML PO ×2 (09:24→21:17)
[2025-02-01] MEDS: VIT B12/Vit C/FA (Nephrovite) TABLET 1 TAB PO (09:24)
[2025-02-01] MEDS: FLUCONAZOLE 100 MG TABLET 400 MG PO (09:25)
[2025-02-01] MEDS: ASPIRIN EC 81 MG TABEC PO (09:25)
[2025-02-01] MEDS: cefTRIAXone/D5w 2gm 2 GM/50 ML BAG IV (09:25)
[2025-02-01] MEDS: HEPARIN SOD INJ 1000 UNIT/ML VIAL 10 ML 3300 UNIT INDWELLCAT (09:27)
--- NOTE | 2025-02-01 10:59 | PC.NURSE ---
Night nurse stated that pt had to small loose bowel movements in the brief over night, and was unable to obtain a stool sample. Will attempt to get a sample today by having the pt use a bed chavez, DRAGSAW OPERATOR is aware also
--- NOTE | 2025-02-01 11:46 | ESDS_ITS ---
Planned Discharge Date 02/01/25 DS: Providers Provider Date of admission: 01/29/25 17:42 Primary care physician: Andre Chow PA-C Admitting Provider: Gen Mclaughlin MD Attending Provider on Admission: Gen Mclaughlin MD Consults: 01/29/25 14:45 Consult to Neurology / Tele-Neurology Routine Comment: Consulting Provider: [facility] 01/29/25 17:47 Consult to Neurology / Tele-Neurology Routine Comment: Consulting Provider: Connor Hamilton 01/29/25 17:48 Consult to Nephrology Routine Comment: Missed Dialysis. Possible Line sepsis Consulting Provider: Ervin Sandoval Referral Physical Therapy Routine Comment: Physician Instructions: Instructions: Falls. 01/30/25 01:58 Referral Infection Control Routine Comment: Reason for Infection Control Referral: Current Dialysis Patient 01/30/25 10:48 Consult to Adjunct Professor Of Law Routine Comment: Possible septic shock Consulting Provider: Kiley Mcfarland 01/31/25 14:20 Consult to Hematology Routine Comment: Nuetropenia. ANC 1.19 Consulting Provider: Sheridan Burt Attending Provider on DC: Gen Mclaughlin MD Discharging Provider: Juan Farah MD DS: Diagnosis Problem List Completed Was Problem List Reviewed/Reconciled?: Yes Hospital Course Hospital Course Hospital course: Patient is a 69-year-old male with a past medical history significant for primary hypertension, ESRD on HD via RIJ PermCath T//S follows with Dr. Sandoval and prostate cancer s/p radical prostatectomy [2014] with bone mets currently on hormonal therapy [Xtandi] follows at [facility] in [place] presenting with a chief complaint of confusion and falls. Patient will be admitted for workup and management of likely sepsis secondary to infected RIJ catheter. Upon further investigation Sepsis due to [GNR bacteremia] with acute sepsis-related organ dysfunction as evidence by [hypotension and troponinemia]. Patient was also found to be cocci positive. He received 2 days of vancomycin IV from 01/29 - 01/30, 2 days of Zosyn 4.5 g IV twice daily from 01/30 - 02/01 after which antibiotics were switched to ceftriaxone 2 g IV daily tailored to blood culture results which grew Serratia marcescens sensitive to ceftriaxone and cefepime. Patient was initially hypotensive with MAP hovering between 65/66, mainframe consultant Dr. Mcfarland was consulted who recommended IV fluids after which his blood pressure improved. He was also treated with hemodialysis while inpatient and had a hematology consultation for his severe neutropenia and pancytopenia. Hematology suggested that his neutropenia and pancytopenia was secondary to sepsis and to treat the underlying cause. He also follows up with a cleaner carpet and upholstery at [facility] and they recommended to continue follow-up upon discharge. After patient's sepsis was treated with IV antibiotics his mentation improved to baseline. All patient's labs are now returning to his baseline. Patient is now clinically stable and fit for discharge to home with home health. Discharge diagnoses: 1. Sepsis secondary to Serratia marcescens bacteremia?resolving 2. Coccidiomycosis 3. Acute diarrhea?resolving 4. Pancytopenia?chronic 5. Neutropenia?improving 6. Thrombocytopenia/chronic 7. ESRD on HD via RIJ PermCath Tuesday//Tuesday 8. Acute metabolic encephalopathy?resolved 9. Possible ground-level fall 10. Troponinemia?resolved 11. History of Prostate cancer s/p radical prostatectomy with bone mets on hormonal therapy 12. Primary hypertension Discharge plan: ? We have stopped your blood pressure medications HCTZ and losartan since your blood pressure has been low while in hospital. ? We have started you on a medication fluconazole for your valley fever. Take 2 tablets on your dialysis days for the next 3 months. You will have to follow-up with your primary doctor to decide when to stop treatment. ? We have started you on an antibiotic for the infection in your blood. Cefepime 2 g IV after dialysis. Take during your dialysis days for the next 6 sessions. ? Continue the rest of your home medication as before. ? Because your white blood count is very low, please ensure that you wear a mask when around other people to prevent getting any infections. Also ensure that other people wear a mask while around you to keep you safe. ? If your diarrhea worsens or persists, see your primary care doctor. Most likely this diarrhea is from the antibiotics ? Continue following up with your cleaner carpet and upholstery at [facility] for your low white count and your enlarged liver and spleen. ? Continue following up with your urologist at [facility] for your bladder incontinence. ? Follow-up with your jacker, Dr. Sandoval within 1 week of discharge. - Follow up with your primary care physician within 1 week of discharge. If you do not have a primary care physician, please follow up with the [facility] Residents clinic ([phone]) ? If you experience any new, worsening or persistent symptoms either call your primary doctor, or dial 911 or present to the emergency department. We are grateful to be able to participate in Mr. Gill's care. We wish him the best. Plan of care discussed with Attending Dr. Arnoldo Farah MD PGY 1 Disclaimer: This note was dictated by speech recognition. Minor errors in ethylene oxide panelboard operator may be present due to voice recognition software. Time Spent with Patient Time attestation: Total time spent providing and/or coordinating discharge services: Time spent: Greater than 30 minutes (46) Exam Vital Signs Temp Pulse Resp BP Pulse Ox O2 Del Method O2 Flow Rate 96.3 F L 93 18 114/71 95 Nasal Cannula 1 02/01/25 08:51 02/01/25 09:17 02/01/25 08:51 02/01/25 09:17 02/01/25 08:51 02/01/25 08:00 02/01/25 08:51 Narrative Exam Constitutional Alert, oriented x 3 [person, place and time], mild distress. Elderly male HEENT Vision grossly intact. Patent nares. Trachea midline. Hearing impaired. Respiratory Chest normal on inspection, RIJ catheter noted. Exit site clean and lungs clear to auscultation in all lung bauer Cardiovascular S1 and S2 audible, RRR. No murmurs carotid bruit. No gross JVD. Abdominal Soft and mild tenderness to deep palpation in upper quadrants?improving. BS + Genitourinary No bladder tenderness, no flank pain. Normal to palpation Musculoskeletal Extremities tone within normal limits. No LE edema. Skin Warm, dry and intact. No apparent lesions. Psychiatric Patient has good affect, is cooperative Neurological CN II - XII grossly intact. Extremity motor and sensation grossly intact. 1A: Level of Consciousness -alert +0 1B: Ask Month and Age -both questions correct +0 1C: Blink Eyes & Squeeze Hands - Performs Both Tasks + 0 2: Test Horizontal Extraocular Movements - Normal + 0 3: Test Visual Bauer -normal +0 4: Test Facial Palsy (Use Grimace if Obtunded) -no asymmetry +0 5A: Test Left Arm Motor Drift - No Drift for 10 Seconds + 0 5B: Test Right Arm Motor Drift - No Drift for 10 Seconds + 0 6A: Test Left Leg Motor Drift - No Drift for 5 Seconds + 0 6B: Test Right Leg Motor Drift - No Drift for 5 Seconds + 0 7: Test Limb Ataxia (FNF/Heel-Acosta) - No Ataxia + 0 8: Test Sensation - Normal; No sensory loss + 0 9: Test Language/Aphasia - Severe Aphasia: No aphasia +0 10: Test Dysarthria - Normal + 0 11: Test Extinction/Inattention - No abnormality + 0 NIHSS Score: +0 Discharge Plan Plan Patient Disposition: Home w/HOME HEALTH Patient condition on transfer: Stable and Benefits outweigh risks Care Plan Goals: ? We have stopped your blood pressure medications HCTZ and losartan since your blood pressure has been low while in hospital. ? We have started you on a medication fluconazole for your valley fever. Take 2 tablets on your dialysis days for the next 3 months. You will have to follow-up with your primary doctor to decide when to stop treatment. ? We have started you on an antibiotic for the infection in your blood. Cefepime 2 g IV after dialysis. Take during your dialysis days for the next 6 sessions. ? Continue the rest of your home medication as before. ? Because your white blood count is very low, please ensure that you wear a mask when around other people to prevent getting any infections. Also ensure that other people wear a mask while around you to keep you safe. ? If your diarrhea worsens or persists, see your primary care doctor. Most likely this diarrhea is from the antibiotics ? We recommend you get tested for hearing aids. ? Continue following up with your cleaner carpet and upholstery at [facility] for your low white count and your enlarged liver and spleen. ? Continue following up with your urologist at [facility] for your bladder incontinence. ? Follow-up with your jacker, Dr. Sandoval within 1 week of discharge. - Follow up with your primary care physician within 1 week of discharge. If you do not have a primary care physician, please follow up with the [facility] Residents clinic ([phone]) ? If you experience any new, worsening or persistent symptoms either call your primary doctor, or dial 911 or present to the emergency department. Prescriptions/Referrals Prescriptions/Med Rec: New atorvastatin 20 mg Tablet 40 mg PO HS 30 Days Qty: 60 0RF gabapentin 400 mg Capsule 400 mg PO TID 30 Days Qty: 90 0RF aspirin [Ecotrin Low Strength] 81 mg Tablet,Delayed Release (Dr/Ec) 81 mg PO QDAY 30 Days Qty: 30 0RF Nephro-Tristan 0.8 mg Tablet 1 tab PO QDAY 30 Days Qty: 30 0RF sevelamer carbonate 800 mg Tablet 800 mg PO TIDWM 30 Days Qty: 90 0RF fluconazole 200 mg tablet See Rx Instructions .ROUTE .COMPLEX Qty: 72 0RF Rx Instructions: 400 mg orally on Dialysis days. Tuesdays/ and Saturdays cefepime 2 gram recon soln See Rx Instructions .ROUTE .COMPLEX Rx Instructions: 2 g intravenously after dialysis Tuesdays//Saturdays for the next 6 sessions Discontinued losartan 100 mg tablet 100 mg PO QDAY hydrochlorothiazide 25 mg tablet 25 mg PO QDAY Referrals: Sheridan Burt MD [Physician] - Michele Sandoval MD [Physician] - Andre Chow PA-C [Primary Care Provider] - Patient/Caregiver Discharge Instructions Discharge Activity: activity as tolerated Education Materials: Neutropenia, Sepsis, Prostate Cancer Tx Coping, ED Bacteremia, Suspected (Adult) Print Language: Cameroonian Stand Alone Forms: [employer] Award Info., Patient Portal Info Letter Discharge Order Discharge Orders: Discharge (Routine); Ordered 02/01/25 Ordered By: Juan Farah Quality Discharge Quality Measures VTE prophylaxis (SCDs) Attestestation MD Attestation I reviewed labs, imaging, EKG, home medications and prior available records. Face to face evaluation was performed by me. I have personally examined the patient and discussed assessment and plan with the IM team. I reviewed the resident note and agree with the plan with exceptions as below. Acute hypotension, resolved Acute encephalopathy resolved Acute febrile illness Gram-negative sepsis Coccidioidomycosis Acute diarrhea, improving ESRD on hemodialysis Pancytopenia Elevated troponin/type II non-STEMI, likely demand ischemia in setting of acute febrile illness Plan: Cocci IgM is positive. Started fluconazole Follow-up urine and blood cultures: Showing gram-negative rods, identified as Serratia. Continue IV cefepime with dialysis sessions as IV ceftriaxone is unavailable Trend troponin: Peaked Ordered C. difficile: Negative Tylenol as needed for fevers Consulted hematology given the worsening pancytopenia: Recommended outpatient follow-up and CBC monitoring Outpatient follow-up with nephrology for hemodialysis Plan of care was discussed with the patient and his daughter Time spent
--- NOTE | 2025-02-01 11:52 | PC.NURSE ---
Consent for records obtained from [facility] shi is contacting the facility and completing the request
--- NOTE | 2025-02-01 12:48 | PC.SS ---
Addendum entered by KALLI Ortiz 02/01/25 13:53: SS update: [facility] informs DME to be delivered within the next 30mins-hour for the patient. Addendum entered by KALLI Ortiz 02/01/25 13:49: SS update: patient's daughter Diallo Hermosillo [phone] informs there is no preferred Home health agency. She informs she will transport the patient home via private vehicle. Addendum entered by KALLI Ortiz 02/01/25 13:28: SS update: DME referral for 02 and walker sent via [employer]. Pending response. Addendum entered by KALLI Ortiz 02/01/25 12:51: SS update: attempted contact with patient's daughter, Rachel Hermosillo [phone]. No answer and voicemail was provided. Original Note: SS update: was informed patient will need oxygen prior to d/c. Margy to complete 02 delivery test.
--- NOTE | 2025-02-01 12:55 | PC.NURSE ---
Pt's O2 at 92-93% on room air when not ambulating, but quickly falls to 87% with exertion
--- NOTE | 2025-02-01 13:22 | PC.PT ---
Patient is safe to ambulate to the bathroom with O2, a FWW, and 1 staff assist. RN made aware.
--- NOTE | 2025-02-01 13:40 | PC.NURSE ---
Pt's Dtr Diallo Hermosillo at [phone] stetd that she will be providing transportation for her father when he is discharged. I verified with the pt that we can change the POC to Diallo, as Rachel the current POC isn't answering
[2025-02-01] MEDS: ACETAMINOPHEN 325 MG TABLET 650 MG PO (17:24)
--- NOTE | 2025-02-01 18:07 | PC.NURSE ---
Spoke with Concepcion, informed him that pt has a fever of 100.8. I have administered acetaminophen and will recheck the temp in about 45 minutes. Pt and family have informed me that pt lives around 40 minutes away and they of course do not want him to leave if his temperature is not stable. Discharge is on old for now
--- NOTE | 2025-02-01 18:26 | EVENTNT_ITS ---
Documentation for date of: 02/01/25 Event Note Event Note: Patient was supposed to be discharged today, however around 5 PM had a temperature of 102F, after: Measures improved to 100.8 and 1 dose of Tylenol was given. Patient is alert and oriented x 3, however mildly diaphoretic. Plan: ? Repeat blood cultures ordered ? Repeat urine culture ordered ? Discharge held for today Plan of care discussed with Attending Dr. Arnoldo Farah MD PGY 1 Disclaimer: This note was dictated by speech recognition. Minor errors in mattress stuffer may be present due to voice recognition software.
--- NOTE | 2025-02-01 19:12 | ESPR_ITS ---
RE: BART RANDHAWA : 1955 DATE OF SERVICE: 02/01/2025 SUBJECTIVE: Mr. 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 He is admitted because of septicemia and has pancytopenia. He also has a history of renal failure and he is on hemodialysis. PHYSICAL EXAMINATION: General: He is complaining of being hard on physical examination. He is alert. Vital Signs: His temperature is 99.1 around 1600 hours. Other vitals are stable. HEENT: Pupils are reactive to light and accommodation. Sclerae nonicteric. Neck: Supple. There is no JVD or palpable mass. Lungs: There is good air entry bilaterally. They are clear to auscultation and percussion. Heart: Regular. Abdomen: Soft. Bowel sounds are present. Extremities: 3+ pedal pulses. There is no cyanosis or edema. INSPECTOR PRECISION: The patient is able to move his extremities and follow simple commands. LABORATORY DATA: His blood work today has a WBC count of 1.4, hemoglobin 9.9, hematocrit 31.5 with normal indices, platelet count of 38,000. His BUN is 29, creatinine is 4.2, corrected calcium is 8.9. AST is 38. Rest of the blood work is grossly within normal limits. PLAN AND RECOMMENDATIONS: I have discussed the case early with resident and mentioned to him that it will be reasonable do the bone scan on him to see the extent of the metastatic disease and I do not see any report on PSA. We will continue the present plan of treatment and we should continue treating his septicemia. DT: 17:23:38 TT: 18:03:00 Ref: [id number] - TID: [id number]
[2025-02-01] MEDS: ATORVASTATIN CALCIUM 20 MG TABLET 40 MG PO (21:17)
--- NOTE | 2025-02-01 22:47 | PD.VPROG1 ---
Telemedicine visit statement This visit was conducted with the use of interactive audio and video telecommunications system that permits real time communication between the patient and the provider. Patient's verbal consent for virtual visit was obtained on 02/01/25 at 2247. Documentation for date of: 02/01/25 Subjective Subjective [facility] No [facility] symptoms reported. Virtual exam Vital Signs Temp Pulse Resp BP Pulse Ox O2 Del Method O2 Flow Rate 97.8 F 95 20 145/85 H 96 Nasal Cannula 1 02/01/25 20:00 02/01/25 20:00 02/01/25 20:00 02/01/25 20:00 02/01/25 20:00 02/01/25 20:00 02/01/25 20:00 Objective Labs 02/03/25 04:52 02/03/25 04:52 Labs: Laboratory Results - last 24 hr 01/31/25 02/01/25 21:01 05:43 WBC 1.4 L RBC 3.22 L Hgb 9.9 L Hct 31.5 L MCV 98 MCH 30.7 MCHC 31.4 RDW Std Deviation 62.4 H Plt Count 38 L D Neut % (Auto) 59 Lymph % (Auto) 12 Montgomery % (Auto) 22 H Eos % (Auto) 5 Baso % (Auto) 1 Neut # (Auto) 0.8 L Lymph # (Auto) 0.2 L Montgomery # (Auto) 0.3 Eos # (Auto) 0.1 Baso # (Auto) 0.0 Immature Gran # (Auto) 0.02 H Absolute Nucleated RBC 0.00 Immature Gran % 1 H Nucleated RBC % 0 Sodium 138 Potassium 4.1 Chloride 100 Carbon Dioxide 26.1 Anion Gap 12 BUN 29 H Creatinine 4.2 H* D Estim Creat Clear Calc 15.8 L eGFR 14 L* BUN/Creatinine Ratio 7 L Glucose 99 Calculated Osmolality 281 Calcium 8.4 Corrected Calcium 8.9 Phosphorus 4.3 Magnesium 2.0 Total Bilirubin 0.5 AST 38 H ALT 10 Alkaline Phosphatase 57 Total Protein 6.0 Albumin 3.4 Globulin 2.6 Albumin/Globulin Ratio 1.3 Misc Test Result Platelets confirmed Platelets confirmed ABG Interpretation ABG results: 01/29/25 01/30/25 17:25 11:00 ABG pH 7.30 L ABG pCO2 31 L ABG pO2 91 ABG HCO3 15 L ABG O2 Saturation 97 ABG Base Excess -10 L VBG pH 7.20 L VBG pCO2 46 VBG pO2 32 VBG Base Excess -10 L Assessment & Plan Problem List (1) Altered mental status: Status: Resolved (2) ESRD (end stage renal disease) on dialysis: Status: Chronic Assessment and plan: Continue with hemodialysis (3) Sepsis: Status: Acute Assessment and plan: Continue with IV antibiotics
[2025-02-02] VITALS (14 sets, daily range): BP systolic 137–154; BP diastolic 78–90; PULSE 66–100; RESP 14–25; TEMP 36–38.4; O2SAT 90–98; BMI 24.6
[2025-02-02] MEDS: GABAPENTIN 100 MG, GABAPENTIN 300 MG 400 MG PO ×3 (05:11→22:01)
[2025-02-02 05:36] LABS: Basophils % (Auto) 1 % (0-2.5); Eosinophils # (Auto) 0.1 Thou/mm3 (0.0-0.5); Eosinophils % (Auto) 5 % (0-10); Hematocrit 31.7 % (41.0-53.0); Hemoglobin 10.4 g/dL (13.5-16.0); Immature Granulocytes % (Auto) 1 % (0-0); Immature Granulocytes Auto 0.02 Thou/mm3 (0.00-0.00); Lymphocytes # (Auto) 0.3 Thou/mm3 (1.0-4.8); Lymphocytes % (Auto) 14 % (10-50); Mean Corpuscular HGB Conc 32.8 g/dl (31.0-37.0); Mean Corpuscular Hemoglobin 31.2 pg (25.0-35.0); Mean Corpuscular Volume 95 fL (80-100); Monocytes # (Auto) 0.5 Thou/mm3 (0.0-0.8); Monocytes % (Auto) 24 % (0-12); Neutrophils # (Auto) 1.1 Thou/mm3 (1.8-7.7); Neutrophils % (Auto) 56 % (37-80); Nucleated Red Blood Cell % 0 /100 WBC (0); RDW Standard Deviation 58.9 fL (35.1-43.9); Red Blood Count 3.33 Miln/mm3 (4.50-5.90)
[2025-02-02 05:39] LABS: Platelet Count 49 Thou/mm3 (140-440)
[2025-02-02 05:55] LABS: Alanine Aminotransferase 14 U/L (10-49); Albumin, Serum 3.6 gm/dL (3.4-4.8); Albumin/Globulin Ratio 1.3 (1.2-2.2); Alkaline Phosphatase 136 U/L (46-116); Anion Gap 10 (7-16); Aspartate Amino Transferase 41 U/L (0-34); BUN/Creatinine Ratio 7 Ratio (12-20); Bilirubin,Total 0.4 mg/dL (0.3-1.2); Blood Urea Nitrogen 34 mg/dL (9-23); Calcium 8.3 mg/dL (8.3-10.6); Calcium (Corrected) 8.6 mg/dL (8.5-10.1); Carbon Dioxide 30.8 mMol/L (20.0-31.0); Chloride 99 mMol/L (98-107); Creatinine (Component) 4.8 mg/dL (0.6-1.3); Estimated Creatinine Clearance 13.9 mL/min (>60); Globulin 2.8 gm/dL (2.3-3.5); Glucose 114 mg/dL (74-106); Magnesium 1.9 mg/dL (1.6-2.6); Osmolality,Calculated 288 (275-295); Potassium 3.9 mMol/L (3.4-5.1); Sodium 140 mMol/L (136-145); Total Protein 6.4 gm/dL (5.7-8.2); eGFR 12 See Note
[2025-02-02 06:04] LABS: Slide Review Platelets confirmed
[2025-02-02] MEDS: CITRIC ACID/SODIUM CITR 15 ML UDC (BICITRA) 30 ML PO ×2 (08:17→20:25)
[2025-02-02] MEDS: ASPIRIN EC 81 MG TABEC PO (08:18)
[2025-02-02] MEDS: VIT B12/Vit C/FA (Nephrovite) TABLET 1 TAB PO (08:18)
[2025-02-02] MEDS: SEVELAMER CARBONATE 800 MG TABLET PO ×3 (08:18→17:42)
[2025-02-02] MEDS: ACETAMINOPHEN 325 MG TABLET 650 MG PO ×2 (08:22→15:57)
--- NOTE | 2025-02-02 09:43 | XR_ITS ---
Examination: AP chest single view Technique one AP portable supine chest single view Date and time: February 02, 2025 1006 hrs. Comparison January 30, 2025 Indications: Infected dialysis catheter Findings: Mild enlargement cardiac contour. Ectatic thoracic aorta. Right internal jugular dialysis catheter satisfactory position Moderate vascular congestion Impression: Right internal jugular dialysis catheter satisfactory position
--- NOTE | 2025-02-02 09:50 | ESPR_ITS ---
Documentation for date of: 02/02/25 Subjective Subjective Interval history: Patient examined at bedside today. No acute overnight events. Patient reports he has not had any fevers that he is felt. He reports no chest pain, shortness of breath nausea or vomiting. No other complaints at this time he is wondering when to go home. Exam Vital Signs Temp Pulse Resp BP Pulse Ox O2 Del Method O2 Flow Rate 101.1 F H 100 22 H 145/83 H 94 L Nasal Cannula 1 02/02/25 08:22 02/02/25 08:00 02/02/25 08:00 02/02/25 08:00 02/02/25 08:00 02/02/25 08:00 02/02/25 08:00 Narrative Exam General: AAOx3, NAD, lying down, looks weak HEENT: Moist mucous membranes, conjunctiva clear, EOMI, PERRLA, good dentition, RIJ present Cardiovascular: S1, S2, radial pulses +2 bilat, RRR Pulmonary: CTAB bilat no cough, no wheezing GI: No tenderness to light or deep palpitation, no guarding, rigidity, rebound tenderness or distension Extremities: No presence of trace or pitting edema in lower extremities bilaterally, dorsalis pedis pulses +2 bilaterally Neuro: AAOx3, no focal motor or sensory deficits in the UE or LE bilat Psych: Good judgement, thought and behavior Objective Labs 02/03/25 04:52 02/03/25 04:52 Labs: Laboratory Results - last 24 hr 02/02/25 04:47 WBC 2.0 L D RBC 3.33 L Hgb 10.4 L Hct 31.7 L MCV 95 MCH 31.2 MCHC 32.8 RDW Std Deviation 58.9 H Plt Count 49 L D Neut % (Auto) 56 Lymph % (Auto) 14 [place] % (Auto) 24 H Eos % (Auto) 5 Baso % (Auto) 1 Neut # (Auto) 1.1 L Lymph # (Auto) 0.3 L [place] # (Auto) 0.5 Eos # (Auto) 0.1 Baso # (Auto) 0.0 Immature Gran # (Auto) 0.02 H Absolute Nucleated RBC 0.00 Immature Gran % 1 H Nucleated RBC % 0 Sodium 140 Potassium 3.9 Chloride 99 Carbon Dioxide 30.8 Anion Gap 10 BUN 34 H Creatinine 4.8 H* D Estim Creat Clear Calc 13.9 L eGFR 12 L* BUN/Creatinine Ratio 7 L Glucose 114 H Calculated Osmolality 288 Calcium 8.3 Corrected Calcium 8.6 Phosphorus 3.0 Magnesium 1.9 Total Bilirubin 0.4 AST 41 H ALT 14 Alkaline Phosphatase 136 H D Total Protein 6.4 Albumin 3.6 Globulin 2.8 Albumin/Globulin Ratio 1.3 Misc Test Result Platelets confirmed ABG Interpretation ABG results: 01/29/25 01/30/25 17:25 11:00 ABG pH 7.30 L ABG pCO2 31 L ABG pO2 91 ABG HCO3 15 L ABG O2 Saturation 97 ABG Base Excess -10 L VBG pH 7.20 L VBG pCO2 46 VBG pO2 32 VBG Base Excess -10 L Quality Measures Quality Measures VTE prophylaxis (SCDs) Advance care planning discussed with:: patient Assessment & Plan Assessment Current Active Medications: Generic Name Dose Route Start Last Admin Trade Name Freq PRN Reason Stop Dose Admin Acetaminophen 650 mg 01/29/25 17:42 02/02/25 08:22 Acetaminophen 325 Mg Tablet PO 02/28/25 17:41 650 mg Q6H PRN Administration Fever >100.3 or pain 1-3 Albuterol/Ipratropium 3 ml 01/29/25 17:42 01/30/25 17:18 Albuterol/Ipratropium (Duoneb) Rt Karolina 3 Ml Nebu INH 02/28/25 17:41 3 ml Q4HR PRN Administration SHORTNESS OF BREATH OR WHEEZE Aspirin 81 mg 01/30/25 09:00 02/02/25 08:18 Aspirin Ec 81 Mg Tabec PO 03/01/25 08:59 81 mg QDAY JENS Administration Atorvastatin Calcium 40 mg 01/29/25 21:00 02/01/25 21:17 Atorvastatin Calcium 20 Mg Tablet PO 02/28/25 20:59 40 mg HS JENS Administration Citric Acid/Sodium Citrate 30 ml 01/30/25 09:00 02/02/25 08:17 Citric Acid/Sodium Citr 15 Ml Udc (Bicitra) PO 03/01/25 08:59 30 ml BID JENS Administration Fluconazole 400 mg 02/02/25 18:00 Fluconazole 100 Mg Tablet PO 02/09/25 17:59 TUTHSA@1800 JENS Gabapentin 100 mg/ Gabapentin 400 mg 01/30/25 14:00 02/02/25 05:11 300 mg PO 02/28/25 21:59 400 mg TID JENS Administration Heparin Sodium (Porcine) 3,300 unit 01/30/25 15:12 02/01/25 09:27 Heparin Sod Inj 1000 Unit/Ml Vial 10 Ml INDWELLCAT 02/13/25 15:11 3,300 unit X1 PRN Administration DIALYSIS Hydromorphone HCl 0.25 mg 02/01/25 18:28 Hydromorphone Inj 2 Mg/Ml Vial IVP 02/03/25 17:41 Q4H PRN BREAKTHROUGH PAIN Albumin Human 25 gm in 100 mls @ 100 mls/hr 01/30/25 11:00 01/31/25 08:06 Albuminar-25 Ivpb IV 100 mls/hr PRN PRN Administration DIALYSIS Ceftriaxone Sodium/Dextrose 2 gm in 50 mls @ 100 mls/hr 02/01/25 09:00 02/01/25 20:00 Rocephin/D5w 2gm IV 02/08/25 08:59 Infused QDAY JENS Infusion Azithromycin 500 mg/ Sodium 250 mls @ 250 mls/hr 02/02/25 09:44 Chloride IV 02/09/25 09:43 QDAY JENS Ondansetron HCl 4 mg 01/29/25 14:45 01/29/25 19:07 Ondansetron Inj 2 Mg/Ml Inj 2 Ml IVP 02/28/25 14:44 4 mg Q4HR PRN Administration NAUSEA OR VOMITING Pharmacy Consult 1 each 01/29/25 18:00 Pharmacy To Consult Patient XX 02/28/25 17:59 QDAY PRN CONSULT Sevelamer Carbonate 800 mg 01/30/25 08:00 02/02/25 08:18 Sevelamer Carbonate 800 Mg Tablet PO 03/01/25 07:59 800 mg TIDWM JENS Administration Vitamin B Complex/Vit C/Folic Acid 1 tab 01/30/25 09:00 02/02/25 08:18 Vit B12/Vit C/Fa (Nephrovite) Tablet PO 03/01/25 08:59 1 tab QDAY JENS Administration Plan Assessment Patient is a 69-year-old male with a past medical history significant for primary hypertension, ESRD on HD via [facility] //S follows with Dr. Sandoval and prostate cancer s/p radical prostatectomy [2014] with bone mets currently on hormonal therapy [Xtandi] follows at [facility] in [place] presenting with a chief complaint of confusion and falls. Patient will be admitted for workup and management of likely sepsis secondary to infected RIJ catheter. #Likely sepsis secondary to GNR bacteremia #Coccidiomycosis #Bradycardia Pt has not had fevers overnight CXR appears to not show significant pneumonia Will follow blood cultures monitor any signs of further infection Echo shows no vegetations on valves Plan: ? Follow up BC ? Continue Zosyn 4.5 g IV twice daily on [01/30? ? Azithromycin 500 mg IV (02/02- ? Continue fluconazole 400 Mg p.o. daily ? ID consult ? Antipyretics #Acute diarrhea Patient had numerous episodes of watery diarrhea since yesterday. C. difficile negative DDx: Viral gastroenteritis, medication side effect, parasitic infection Plan: ? F/u stool culture, WBC, ova/cyst/parasites, calprotectin and Giardia ordered ? Chest/abdomen/pelvis CT ordered to further investigate etiology #Pancytopenia #Neutropenia?worsening #Thrombocytopenia?worsening Hb 10.4, WBC 1.6, PLT 23 ANC 1.129 Patient has no signs of active bleeding. No spontaneous petechiae, purpura noted on skin exam, also no signs of blood in the stool. Patient no longer produces urine as he is on hemodialysis Plan: ? Reverse isolation precautions ? Bleeding precautions ? No IM injections ? Monitor for signs and symptoms of bleeding ? Peripheral blood smear ordered ? Veneer Jointer Offbearer, Dr. Burt consulted. Appreciate recommendations #ESRD on HD via RIJ PermCath T// Follows up with Dr. Sandoval. Dialysis yesterday Plan: ? Renally dose medications ? Avoid nephrotoxic agents ? Nephrology, Dr. Gotti consulted and closely following the case. Appreciate recommendations #Acute encephalopathy, likely metabolic?resolved #Ground-level falls DDx: Sepsis, TIA, CVA, medication side effect Patient presented with confusion which is now resolving but no localizing deficits. CT brain and CTA were both negative for any acute findings NIHSS +0 Plan: - Continue ASA - Neurology Consulted, Appreciated recs - Neuro Checks q4h - Continue high intensity statin #Troponinemia?resolved DDx: ESRD, sepsis, NSTEMI Troponin increased from 0.102 to 0.11 Plan: ? No need to further trend. #History of Prostate cancer s/p radical prostatectomy with bone mets on hormonal therapy On Xtandi as outpatient. Follows [facility] in [place] Plan: ? Continue outpatient follow-up #Primary hypertension Plan: ? Antihypertensives on hold due to sepsis #Health Maintenance Disposition: Telemetry DVT prophylaxis: Heparin GI prophylaxis: None indicated at this time Diet: Renal, 1500 cc fluid restriction CODE STATUS: Full Patient seen and care discussed with my attending physician, Dr. Arnoldo Fishman, PGY-1 Attending Provider Attestation/Addendum I reviewed labs, imaging, EKG, home medications and prior available records. Face to face evaluation was performed by me. I have personally examined the patient and discussed assessment and plan with the IM team. I reviewed the resident note and agree with the plan with exceptions as below. Acute hypotension, resolved Acute encephalopathy resolved Acute febrile illness Gram-negative sepsis Coccidioidomycosis Acute diarrhea, improving ESRD on hemodialysis Pancytopenia Elevated troponin/type II non-STEMI, likely demand ischemia in setting of acute febrile illness Plan: Had more fevers overnight. Discharge was held and workup was ordered. See event note. Follow up repeat blood culture. Repeat CXR showed no interval change. Changed antibiotics to IV zosyn/ azithromycin. Consulted ID. Cocci IgM is positive. Started fluconazole Follow-up urine and blood cultures: Showing gram-negative rods, identified as Serratia. Continue antibiotics as above Trend troponin: Peaked Ordered C. difficile: Negative Tylenol as needed for fevers Consulted hematology given the worsening pancytopenia: Recommended outpatient follow-up and CBC monitoring Outpatient follow-up with nephrology for hemodialysis
--- NOTE | 2025-02-02 10:48 | PC.NURSE ---
0846 call to pharm, need rocephin dose
[2025-02-02] MEDS: cefTRIAXone/D5w 2gm 2 GM/50 ML BAG IV (10:49)
[2025-02-02] MEDS: AZITHROMYCIN INJ 500 MG in SODIUM CHLORIDE 0.9% 250 ML 250 ML 250 MG IV (11:40)
[2025-02-02 12:09] LABS: HIV (1&2) Antibody Rapid Non-Reactive
[2025-02-02] MEDS: PIPER/TAZO 3.375 GM PREMIX 3.375 GM/50 ML BAG IV ×2 (15:55→20:26)
[2025-02-02] MEDS: FLUCONAZOLE 100 MG TABLET 400 MG PO (17:41)
--- NOTE | 2025-02-02 20:20 | PD.NEUROPROG ---
Documentation for date of: 02/02/25 Subjective Subjective Interval history: Patient was seen in [facility] today with his son at the bedside, noted to be resting after dinner. Exam - Neurology Vital Signs Temp Pulse Resp BP Pulse Ox O2 Del Method O2 Flow Rate 97.8 F 79 21 H 146/86 H 90 L Room Air 1 02/02/25 20:00 02/02/25 20:00 02/02/25 20:00 02/02/25 20:00 02/02/25 20:00 02/02/25 20:00 02/02/25 15:43 Narrative Exam Gen: Chronically ill-appearing male in NAD. HEENT: NCAT, PERRLA, EOMI, MMM, anicteric conjunctivae. CVS: normal S1 and S2. RRR. No M/R/G. Resp: CTA B/L. No rhonchi, rales, crackles or wheezing. Abd: soft, non-tender, non-distended. BS+ in all 4 quadrants. MSK: Good ROM in BUE & BLE. No edema or rash. Neuro: Bilateral hearing loss. Strength 5/5 in BUE & BLE. Resting at present Psych: appropriate mood and affect Objective Labs 02/03/25 04:52 02/03/25 04:52 Labs: Laboratory Results - last 24 hr 02/02/25 04:47 WBC 2.0 L D RBC 3.33 L Hgb 10.4 L Hct 31.7 L MCV 95 MCH 31.2 MCHC 32.8 RDW Std Deviation 58.9 H Plt Count 49 L D Neut % (Auto) 56 Lymph % (Auto) 14 [place] % (Auto) 24 H Eos % (Auto) 5 Baso % (Auto) 1 Neut # (Auto) 1.1 L Lymph # (Auto) 0.3 L [place] # (Auto) 0.5 Eos # (Auto) 0.1 Baso # (Auto) 0.0 Immature Gran # (Auto) 0.02 H Absolute Nucleated RBC 0.00 Immature Gran % 1 H Nucleated RBC % 0 Sodium 140 Potassium 3.9 Chloride 99 Carbon Dioxide 30.8 Anion Gap 10 BUN 34 H Creatinine 4.8 H* D Estim Creat Clear Calc 13.9 L eGFR 12 L* BUN/Creatinine Ratio 7 L Glucose 114 H Calculated Osmolality 288 Calcium 8.3 Corrected Calcium 8.6 Phosphorus 3.0 Magnesium 1.9 Total Bilirubin 0.4 AST 41 H ALT 14 Alkaline Phosphatase 136 H D Total Protein 6.4 Albumin 3.6 Globulin 2.8 Albumin/Globulin Ratio 1.3 HIV 1&2 Antibody Rapid Non-Reactive Misc Test Result Platelets confirmed ABG Interpretation ABG results: 01/29/25 01/30/25 17:25 11:00 ABG pH 7.30 L ABG pCO2 31 L ABG pO2 91 ABG HCO3 15 L ABG O2 Saturation 97 ABG Base Excess -10 L VBG pH 7.20 L VBG pCO2 46 VBG pO2 32 VBG Base Excess -10 L Assessment & Plan Assessment and plan (1) ESRD (end stage renal disease) on dialysis: Status: Chronic (2) Sepsis: Status: Acute Additional Assessment & Plan Additional Plan: The patient is a 69-year-old male with a past medical history of hypertension, end-stage renal disease on dialysis //Tue following with Dr. Sandoval, prostate cancer status post prostatectomy with bone metastasis on Xtandi who was brought in due to altered mental status and falls. #Acute encephalopathy, resolved #Ground level falls Most likely in the setting of sepsis. CT head was negative foe acute intracranial pathology. Plan: - continue with antibiotics - continue with dialysis as scheduled - use of hearing aids - Family visitation - Natural sunlight during day hours - FU with blood and urine cultures - blood pressure control - physical therapy - avoid benzodiazepines, anticholinergics if possible - aspirin 81 mg qday #Likely sepsis secondary to infected RIJ catheter #ESRD on HD via RIJ PermCath // #Troponinemia #History of Prostate cancer s/p radical prostatectomy with bone mets on hormonal therapy #Primary hypertension - management per primary team
[2025-02-02] MEDS: ATORVASTATIN CALCIUM 20 MG TABLET 40 MG PO (20:25)
[2025-02-02 22:05] LABS: Stool for WBCs Negative (Negative)
[2025-02-03] VITALS (16 sets, daily range): BP systolic 107–159; BP diastolic 62–97; PULSE 86–111; RESP 18–25; TEMP 36.6–38.8; O2SAT 93–97; BMI 25.2
[2025-02-03] MEDS: ACETAMINOPHEN 325 MG TABLET 650 MG PO ×3 (02:08→17:52)
[2025-02-03] MEDS: GABAPENTIN 100 MG, GABAPENTIN 300 MG 400 MG PO ×3 (05:35→21:28)
[2025-02-03 05:58] LABS: Basophils % (Auto) 0 % (0-2.5); Eosinophils # (Auto) 0.1 Thou/mm3 (0.0-0.5); Eosinophils % (Auto) 4 % (0-10); Hematocrit 29.9 % (41.0-53.0); Hemoglobin 9.8 g/dL (13.5-16.0); Immature Granulocytes % (Auto) 2 % (0-0); Immature Granulocytes Auto 0.04 Thou/mm3 (0.00-0.00); Lymphocytes # (Auto) 0.2 Thou/mm3 (1.0-4.8); Lymphocytes % (Auto) 6 % (10-50); Mean Corpuscular HGB Conc 32.8 g/dl (31.0-37.0); Mean Corpuscular Hemoglobin 30.5 pg (25.0-35.0); Mean Corpuscular Volume 93 fL (80-100); Monocytes # (Auto) 0.3 Thou/mm3 (0.0-0.8); Monocytes % (Auto) 11 % (0-12); Neutrophils % (Auto) 77 % (37-80); Nucleated Red Blood Cell % 0 /100 WBC (0); RDW Standard Deviation 57.6 fL (35.1-43.9); Red Blood Count 3.21 Miln/mm3 (4.50-5.90)
[2025-02-03 06:03] LABS: Platelet Count 44 Thou/mm3 (140-440); White Blood Count 2.6 Thou/mm3 (3.8-10.6)
[2025-02-03 06:28] LABS: Alanine Aminotransferase 15 U/L (10-49); Albumin, Serum 3.3 gm/dL (3.4-4.8); Albumin/Globulin Ratio 1.2 (1.2-2.2); Alkaline Phosphatase 132 U/L (46-116); Anion Gap 13 (7-16); Aspartate Amino Transferase 36 U/L (0-34); BUN/Creatinine Ratio 7 Ratio (12-20); Bilirubin,Total 0.5 mg/dL (0.3-1.2); Blood Urea Nitrogen 43 mg/dL (9-23); Calcium 8.3 mg/dL (8.3-10.6); Calcium (Corrected) 8.9 mg/dL (8.5-10.1); Carbon Dioxide 27.5 mMol/L (20.0-31.0); Chloride 97 mMol/L (98-107); Creatinine (Component) 6.1 mg/dL (0.6-1.3); Estimated Creatinine Clearance 10.9 mL/min (>60); Globulin 2.7 gm/dL (2.3-3.5); Glucose 98 mg/dL (74-106); Magnesium 1.9 mg/dL (1.6-2.6); Osmolality,Calculated 284 (275-295); Phosphorous 3.8 mg/dL (2.4-5.1); Sodium 137 mMol/L (136-145); eGFR 9 See Note
[2025-02-03 06:54] LABS: Slide Review Platelets confirmed
[2025-02-03] MEDS: ASPIRIN EC 81 MG TABEC PO (08:14)
[2025-02-03] MEDS: VIT B12/Vit C/FA (Nephrovite) TABLET 1 TAB PO (08:14)
[2025-02-03] MEDS: CITRIC ACID/SODIUM CITR 15 ML UDC (BICITRA) 30 ML PO ×2 (08:14→21:28)
[2025-02-03] MEDS: SEVELAMER CARBONATE 800 MG TABLET PO ×3 (08:14→17:53)
[2025-02-03] MEDS: PIPER/TAZO 3.375 GM PREMIX 3.375 GM/50 ML BAG IV (08:14)
--- NOTE | 2025-02-03 08:39 | PD.RESEVENT ---
Documentation for date of: 02/03/25 Event Note Event Note: Rapid response was called at approximately 8:30 am due to worsening mentation. Upon arrival and focussed exam pt was shivering and was alert and oriented x3. Temperature was found to be 101.1, pt was tachycardic, tachypnic but not in acute distress and was able to answer questions and protect airways. Pt was given Tylenol 1000mg and repeat BC ordered. Decision was made to remove RIJ dialysis cath tomorrow after dialysis due to possibly being the source. Plan of care was discussed with supervisor pressing department who is in agreement. Flucanazole is changed to 400mg PO daily. Dr. Zamudio (PGY-1)- Internal medicine resident
[2025-02-03] MEDS: AZITHROMYCIN INJ 500 MG in SODIUM CHLORIDE 0.9% 250 ML 250 ML 250 MG IV (10:24)
--- NOTE | 2025-02-03 15:18 | ESPR_ITS ---
<Statement entered by Isaura Lucero MD - 02/04/25 16:37> Patient was seen and examined by me personally. I have directly supervised and reviewed documentation by the team resident and agree with its findings with any exceptions or additional findings as below. Plan of care was discussed with the attending, Dr. Graves. New Team B continuing care starting today. Mr. Gill is a 69-year-old male with past medical history of hypertension, ESRD on HD, and prostate cancer who presented initially on 01/29/2025 with confusion and falls. Patient had a Rapid Response this morning due to rigors and fever spike of 101.1. Patient was found to be oriented but also not himself according to the bedside nurse. The patient himself was not able to express pain or any other specific complaint. He was given Tylenol with resolution of the fever. New blood cultures were ordered, despite latest set being negative. Plan is for right IJ catheter to be removed tomorrow as that appears to be likely source of infection. Discussed with Nephrology who is following, patient will have dialysis prior to removal and is in agreement with plan. Isaura Lucero, PGY-2 Documentation for date of: 02/03/25 Subjective Subjective Interval history: 02/03: No acute overnight events reported however per chart reviewing patient did spike a fever of 101.8 around 2 AM. Patient seen and examined at bedside this morning. Patient also had a rapid response called this morning for confusion however upon arrival patient had a fever of 101.1 and Tylenol was given. Patient was seen again after couple hours and states he is feeling better and denies any chills or headache. Patient denies any chest pain palpitations, shortness of breath or abdominal pain. Repeat blood cultures have no growth at 24 hours and urine cultures also no growth. However due to intermittent spikes in fever will repeat blood cultures and will remove right IJ HD catheter tomorrow after session of dialysis. Patient does have history of cocci and will continue fluconazole 400 mg daily. Patient has no other complaints. Exam Vital Signs Temp Pulse Resp BP Pulse Ox O2 Del Method O2 Flow Rate 99.2 F 101 H 22 H 107/62 95 Nasal Cannula 2 02/03/25 11:38 02/03/25 13:09 02/03/25 11:38 02/03/25 11:38 02/03/25 11:38 02/03/25 11:38 02/03/25 11:38 Narrative Exam GENERAL: elderly male, awake and not in acute distress NEURO: no focal neurological deficits noted HEENT: Atraumatic, Normocephalic. mucous membranes moist. Eyes open, symmetrical, & clear, RIJ present HEART: Normal Heart Sounds LUNGS: Clear to auscultation with no wheezing or crackles. ABDOMEN: soft, non-distended, non-tender, bowel sounds heard, no guarding or rebound tenderness SKIN: No Rash or ecchymoses EXTREMITIES: No edema, tenderness, able to move all 4 extremities, pedal pulses palpated Objective Labs 02/05/25 05:01 02/05/25 05:01 Labs: Laboratory Results - last 24 hr 02/02/25 02/03/25 20:47 04:52 WBC 2.6 L RBC 3.21 L Hgb 9.8 L Hct 29.9 L MCV 93 MCH 30.5 MCHC 32.8 RDW Std Deviation 57.6 H Plt Count 44 L Neut % (Auto) 77 Lymph % (Auto) 6 L [place] % (Auto) 11 Eos % (Auto) 4 Baso % (Auto) 0 Neut # (Auto) 2.0 Lymph # (Auto) 0.2 L [place] # (Auto) 0.3 Eos # (Auto) 0.1 Baso # (Auto) 0.0 Immature Gran # (Auto) 0.04 H Absolute Nucleated RBC 0.00 Immature Gran % 2 H Nucleated RBC % 0 Sodium 137 Potassium 4.0 Chloride 97 L Carbon Dioxide 27.5 Anion Gap 13 BUN 43 H Creatinine 6.1 H* D Estim Creat Clear Calc 10.9 L eGFR 9 L* BUN/Creatinine Ratio 7 L Glucose 98 Calculated Osmolality 284 Calcium 8.3 Corrected Calcium 8.9 Phosphorus 3.8 Magnesium 1.9 Total Bilirubin 0.5 AST 36 H ALT 15 Alkaline Phosphatase 132 H Total Protein 6.0 Albumin 3.3 L Globulin 2.7 Albumin/Globulin Ratio 1.2 Stool for White Cells Negative Misc Test Result Platelets confirmed ABG Interpretation ABG results: 01/29/25 01/30/25 17:25 11:00 ABG pH 7.30 L ABG pCO2 31 L ABG pO2 91 ABG HCO3 15 L ABG O2 Saturation 97 ABG Base Excess -10 L VBG pH 7.20 L VBG pCO2 46 VBG pO2 32 VBG Base Excess -10 L Quality Measures Quality Measures VTE prophylaxis (SCDs) Advance care planning discussed with:: other Assessment & Plan Assessment Current Active Medications: Generic Name Dose Route Start Last Admin Trade Name Freq PRN Reason Stop Dose Admin Acetaminophen 650 mg 01/29/25 17:42 02/03/25 08:31 Acetaminophen 325 Mg Tablet PO 02/28/25 17:41 650 mg Q6H PRN Administration Fever >100.3 or pain 1-3 Albuterol/Ipratropium 3 ml 01/29/25 17:42 01/30/25 17:18 Albuterol/Ipratropium (Duoneb) Rt Karolina 3 Ml Nebu INH 02/28/25 17:41 3 ml Q4HR PRN Administration SHORTNESS OF BREATH OR WHEEZE Aspirin 81 mg 01/30/25 09:00 02/03/25 08:14 Aspirin Ec 81 Mg Tabec PO 03/01/25 08:59 81 mg QDAY JENS Administration Atorvastatin Calcium 40 mg 01/29/25 21:00 02/02/25 20:25 Atorvastatin Calcium 20 Mg Tablet PO 02/28/25 20:59 40 mg HS JENS Administration Citric Acid/Sodium Citrate 30 ml 01/30/25 09:00 02/03/25 08:14 Citric Acid/Sodium Citr 15 Ml Udc (Bicitra) PO 03/01/25 08:59 30 ml BID JENS Administration Fluconazole 400 mg 02/03/25 18:00 Fluconazole 100 Mg Tablet PO 02/10/25 17:59 Q24H JENS Gabapentin 100 mg/ Gabapentin 400 mg 01/30/25 14:00 02/03/25 05:35 300 mg PO 02/28/25 21:59 400 mg TID JENS Administration Heparin Sodium (Porcine) 3,300 unit 01/30/25 15:12 02/01/25 09:27 Heparin Sod Inj 1000 Unit/Ml Vial 10 Ml INDWELLCAT 02/13/25 15:11 3,300 unit X1 PRN Administration DIALYSIS Hydromorphone HCl 0.25 mg 02/01/25 18:28 Hydromorphone Inj 2 Mg/Ml Vial IVP 02/03/25 17:41 Q4H PRN BREAKTHROUGH PAIN Albumin Human 25 gm in 100 mls @ 100 mls/hr 01/30/25 11:00 01/31/25 08:06 Albuminar-25 Ivpb IV 100 mls/hr PRN PRN Administration DIALYSIS Ceftriaxone Sodium/Dextrose 2 gm in 50 mls @ 100 mls/hr 02/03/25 18:00 Rocephin/D5w 2gm IV 02/10/25 17:59 Q24H [facility] Pharmacy Consult 1 each 01/29/25 18:00 Pharmacy To Consult Patient XX 02/28/25 17:59 QDAY PRN CONSULT Sevelamer Carbonate 800 mg 01/30/25 08:00 02/03/25 12:36 Sevelamer Carbonate 800 Mg Tablet PO 03/01/25 07:59 800 mg TIDWM JENS Administration Vitamin B Complex/Vit C/Folic Acid 1 tab 01/30/25 09:00 02/03/25 08:14 Vit B12/Vit C/Fa (Nephrovite) Tablet PO 03/01/25 08:59 1 tab QDAY JENS Administration Plan Mr. Gill is a 69-year-old male with a past medical history significant for primary hypertension, ESRD on HD via RIJ PermCath T// follows with Dr. Sandoval and prostate cancer s/p radical prostatectomy [2014] with bone mets currently on hormonal therapy [Xtandi] follows at [facility] in [place] presenting with a chief complaint of confusion and falls. Patient will be admitted for workup and management of likely sepsis secondary to infected RIJ catheter. #Serratia bacteremia #Coccidiomycosis Pt has not had fevers overnight CXR appears to not show significant pneumonia Will follow blood cultures monitor any signs of further infection Echo shows no vegetations on valves Plan: ? Repeat BC ordered - UC now growth - Tyelenol ordered PRN for fever - Rocephin ordered 02/03- ? Zosyn 4.5 g IV twice daily on [01/30?02/02) ? Azithromycin 500 mg IV (02/02) ? Continue fluconazole 400 Mg p.o. daily ? ID consult, pending recommendations ? Antipyretics - Plan is to remove RIJ HD cath tomorrow (02/04) after session of dialysis (power hammer operator aware and agreeable with plan) #Acute diarrhea, improving Patient had numerous episodes of watery diarrhea since yesterday. C. difficile negative DDx: Viral gastroenteritis, medication side effect, parasitic infection Plan: ? F/u stool culture, stool WBC (negative), ova/cyst/parasites, calprotectin and Giardia ordered - C. diff negative ? Chest/abdomen/pelvis CT ordered to further investigate etiology #Pancytopenia #Neutropenia?worsening #Thrombocytopenia?worsening Hb 10.4, WBC 1.6, PLT 23 ANC 1.129 Patient has no signs of active bleeding. No spontaneous petechiae, purpura noted on skin exam, also no signs of blood in the stool. Patient no longer produces urine as he is on hemodialysis Plan: ? Reverse isolation precautions ? Bleeding precautions ? No IM injections ? Monitor for signs and symptoms of bleeding ? Peripheral blood smear ordered ? Sprayer Insecticide, Dr. Burt consulted. Appreciate recommendations #ESRD on HD via [facility] // Follows up with Dr. Sandoval. Dialysis yesterday Plan: ? Renally dose medications ? Avoid nephrotoxic agents ? Nephrology, Dr. Gotti consulted and closely following the case. Appreciate recommendations #Acute encephalopathy, likely metabolic?resolved #Ground-level falls DDx: Sepsis, TIA, CVA, medication side effect Patient presented with confusion which is now resolving but no localizing deficits. CT brain and CTA were both negative for any acute findings NIHSS +0 Plan: - Continue ASA - Neurology Consulted, Appreciated recs - Neuro Checks q4h - Continue high intensity statin #Troponinemia?resolved DDx: ESRD, sepsis, NSTEMI Troponin increased from 0.102 to 0.11 Plan: ? No need to further trend. #History of Prostate cancer s/p radical prostatectomy with bone mets on hormonal therapy On Xtandi as outpatient. Follows [facility] in [place] Plan: ? Continue outpatient follow-up #Primary hypertension ? Antihypertensives on hold due to sepsis and low blood pressure #Health Maintenance Disposition: Telemetry DVT prophylaxis: Heparin GI prophylaxis: None indicated at this time Diet: Renal, 1500 cc fluid restriction CODE STATUS: Full Assessment and plan discussed with my senior resident Dr. Lucero & attending physician Dr. Ely Zamudio (PGY-1)- Internal medicine resident Attending Provider Attestation/Addendum Face to face evaluation was performed by me. I have personally seen and examined the patient. I discussed the assessment and plan with the entire medicine team. I reviewed available medical records, imaging studies, laboratory results. I agree with the above subjective data, objective findings, assessment and plan except as corrected by me or noted below Febrile illness due to below Serratia marcescens bacteremia Suspected dialysis catheter?TDC related infection End-stage renal disease on hemodialysis Tuesday//Tuesday Pancytopenia Hyperlipidemia -Continue with empiric antibiotics-no indication of MRSA infection?change antibiotics to 2 g Rocephin daily for now Remove dialysis catheter-for source control?plan for tomorrow after dialysis session, then provide with dialysis catheter holiday and reinsertion of catheter may be couple of days after - Dialysis per nephrology, appreciate help - Monitor vitals, clinical course, labs closely - DVT prophylaxis with heparin product More than > 30 minutes spent on the encounter
[2025-02-03] MEDS: FLUCONAZOLE 100 MG TABLET 400 MG PO (17:52)
[2025-02-03] MEDS: cefTRIAXone/D5w 2gm 2 GM/50 ML BAG IV (17:53)
[2025-02-03] MEDS: ATORVASTATIN CALCIUM 20 MG TABLET 40 MG PO (21:28)
--- NOTE | 2025-02-03 23:52 | VVPN_ITS ---
Telemedicine visit statement This visit was conducted with the use of interactive audio and video telecommunications system that permits real time communication between the patient and the provider. Patient's verbal consent for virtual visit was obtained on 02/03/25 at 2352. Documentation for date of: 02/03/25 Subjective Subjective Interval history: [facility] No new symptoms reported. Virtual exam Vital Signs Temp Pulse Resp BP Pulse Ox O2 Del Method O2 Flow Rate 98.8 F 86 25 H 123/81 93 L Nasal Cannula 2 02/03/25 20:00 02/03/25 22:25 02/03/25 22:25 02/03/25 20:00 02/03/25 22:25 02/03/25 20:00 02/03/25 22:25 Objective Labs 02/03/25 04:52 02/03/25 04:52 Labs: Laboratory Results - last 24 hr 02/03/25 04:52 WBC 2.6 L RBC 3.21 L Hgb 9.8 L Hct 29.9 L MCV 93 MCH 30.5 MCHC 32.8 RDW Std Deviation 57.6 H Plt Count 44 L Neut % (Auto) 77 Lymph % (Auto) 6 L [place] % (Auto) 11 Eos % (Auto) 4 Baso % (Auto) 0 Neut # (Auto) 2.0 Lymph # (Auto) 0.2 L [place] # (Auto) 0.3 Eos # (Auto) 0.1 Baso # (Auto) 0.0 Immature Gran # (Auto) 0.04 H Absolute Nucleated RBC 0.00 Immature Gran % 2 H Nucleated RBC % 0 Sodium 137 Potassium 4.0 Chloride 97 L Carbon Dioxide 27.5 Anion Gap 13 BUN 43 H Creatinine 6.1 H* D Estim Creat Clear Calc 10.9 L eGFR 9 L* BUN/Creatinine Ratio 7 L Glucose 98 Calculated Osmolality 284 Calcium 8.3 Corrected Calcium 8.9 Phosphorus 3.8 Magnesium 1.9 Total Bilirubin 0.5 AST 36 H ALT 15 Alkaline Phosphatase 132 H Total Protein 6.0 Albumin 3.3 L Globulin 2.7 Albumin/Globulin Ratio 1.2 Misc Test Result Platelets confirmed ABG Interpretation ABG results: 01/29/25 01/30/25 17:25 11:00 ABG pH 7.30 L ABG pCO2 31 L ABG pO2 91 ABG HCO3 15 L ABG O2 Saturation 97 ABG Base Excess -10 L VBG pH 7.20 L VBG pCO2 46 VBG pO2 32 VBG Base Excess -10 L Assessment & Plan Problem List (1) Altered mental status: Status: Resolved (2) ESRD (end stage renal disease) on dialysis: Status: Chronic Assessment and plan: Continue with hemodialysis (3) Sepsis: Status: Acute Assessment and plan: Continue with IV antibiotics
[2025-02-04] VITALS (28 sets, daily range): BP systolic 77–154; BP diastolic 56–105; PULSE 85–117; RESP 18–28; TEMP 36.9–37.6; O2SAT 93–98; BMI 24.2
[2025-02-04] MEDS: GABAPENTIN 100 MG, GABAPENTIN 300 MG 400 MG PO (05:23)
--- NOTE | 2025-02-04 08:01 | ESCONSULT_ITS ---
RE: BART RANDHAWA : 1955 DATE OF CONSULTATION: 01/31/2025 REFERRING PHYSICIAN: Dr. Juan Farah. REASON FOR CONSULTATION: 1. Pancytopenia. 2. History of prostate cancer. 3. Renal failure, on hemodialysis. HISTORY OF PRESENT ILLNESS: Mr. Randhawa is a 69-year-old gentleman, who was admitted to the hospital because of bacteremia/sepsis and he also has pancytopenia and neutropenia. Because of this neutropenia, this consultation is obtained. The patient cannot give a lot of relative information and on top of that, he is very hard of hearing. Most of the information is gathered through the record. It is noted that he has a history of hypertension, end- stage renal disease, on hemodialysis, prostate cancer, radical prostatectomy in 2013 with bone mets, currently on hormonal therapy Xtandi and he is not sure if he is getting any other treatment. He mentioned that he goes to [place] for the treatment, but no details are available. It is noted that the patient's granddaughter at home mentioned that he had multiple ground level falls and subjective fever. There is no head trauma, sick contact, presyncope or syncope. No history of travel out of the country and he admits to dialysis last time and he also has a history of recurrent UTIs such as prostate cancer. He denies any systemic symptom at the moment and he cannot tell me how long he has bone mets. PAST MEDICAL HISTORY: Prostate cancer, status post prostatectomy with bone mets, on hormonal therapy, end-stage renal disease, on hemodialysis, and hypertension. SOCIAL HISTORY: Nonsmoker and nondrinker. Denies use of illicit drug. ALLERGIES: NOT KNOWN. PHYSICAL EXAMINATION: GENERAL: He is alert, in no apparent distress. VITAL SIGNS: He is afebrile. Vitals stable. HEENT: Pupils are reactive to light and accommodations. Sclerae nonicteric. NECK: Supple. There is no JVD or palpable mass. LUNGS: There is good air entry bilaterally. They are clear to auscultation and percussion. HEART: Regular. ABDOMEN: Soft. Bowel sounds are present. EXTREMITIES: 3+ pedal pulses. There is no cyanosis or edema. CENTRAL NERVOUS SYSTEM: The patient is able to move his extremities and follow simple commands. RECOMMENDATION: His blood work done on the day of admission, 01/29/2025, WBC count 2.5, hemoglobin 12.8, hematocrit 37.4, and platelet count is 54,000. Today, his WBC count is 1.3, hemoglobin is 9.7, hematocrit 29.0, and platelet count is 25,000. His blood count done on 03/17/2023, WBC count was 4.6, hemoglobin 9.3, hematocrit 28.0, and at that time, his platelet count was 169,000 and in 11/2023, his WBC count was 5.5, hemoglobin 9.2, hematocrit was 27.4, and platelet count was 115,000. His pancytopenia is most probably related to his underlying pathology/sepsis. Once he recovered, he may go back to his baseline for his neutrophil count and his hemoglobin and platelet count. He may have anemia of chronic disease because of his renal failure and other medical problem and his thrombocytopenia, though, it was normal in 2022 and after that it dropped in 2023, so I am not sure that his platelet count is low normal since 2023 or he had this problem even before, but if he is not bleeding, one can from his platelet points of view and if it is okay with Dr. Sandoval, then he may be already getting erythropoietin stimulating factor for his anemia and as for his neutrophil counts are concerned, hopefully they will revert back to the normal once his sepsis is improved. I will follow this patient with you and his daughter regarding clinical situation. The patient asked simple question. They were answered to his satisfaction. I thank you, Dr. Juan Farah, for letting me participate in the care of this interesting patient. If you have any questions, please feel free to contact me. DT: 17:36:23 TT: 19:28:00 Ref: [id number] - TID: [id number]
--- NOTE | 2025-02-04 09:15 | PC.SS ---
Follow up note: Pt abhilash have dialysis cath removed today. Pt will return home with .
[2025-02-04] MEDS: CITRIC ACID/SODIUM CITR 15 ML UDC (BICITRA) 30 ML PO ×2 (09:26→20:45)
[2025-02-04] MEDS: SEVELAMER CARBONATE 800 MG TABLET PO ×3 (09:26→17:23)
[2025-02-04] MEDS: ASPIRIN EC 81 MG TABEC PO (09:26)
[2025-02-04] MEDS: VIT B12/Vit C/FA (Nephrovite) TABLET 1 TAB PO (09:26)
[2025-02-04] MEDS: EPOETIN ALFA-EPBX INJ 10,000 UNIT/ML VIAL (ESRD) 10000 UNIT SC (09:33)
--- NOTE | 2025-02-04 14:00 | XR_ITS ---
Examination: IR venous access removal tunneled permanent dialysis catheter Fluoroscopy AP chest single view Date and time: February 04, 2025 1405 hours INDICATIONS: Bacteremia, infected permanent tunneled dialysis catheter needs to be removed TECHNIQUE AND FINDINGS: Informed consent provided. Timeout performed. Skin prepped over the entrance site of the permanent tunneled dialysis catheter, maximum barrier sterile technique hand hygiene 1% lidocaine administered for local anesthesia Successful removal of the permanent tunneled dialysis catheter Estimated blood loss 0 cc IMPRESSION: Successful IR venous access removal permanent tunneled dialysis catheter Fluoroscopy 0.01 minute radiation dose 0.11 milligray 1 spot fluoroscopic chest film
[2025-02-04 16:05] LABS: Basophils % (Auto) 0 % (0-2.5); Eosinophils # (Auto) 0.1 Thou/mm3 (0.0-0.5); Eosinophils % (Auto) 2 % (0-10); Hematocrit 29.9 % (41.0-53.0); Hemoglobin 9.8 g/dL (13.5-16.0); Immature Granulocytes % (Auto) 4 % (0-0); Lymphocytes # (Auto) 0.4 Thou/mm3 (1.0-4.8); Lymphocytes % (Auto) 7 % (10-50); Mean Corpuscular HGB Conc 32.8 g/dl (31.0-37.0); Mean Corpuscular Hemoglobin 30.6 pg (25.0-35.0); Mean Corpuscular Volume 93 fL (80-100); Monocytes # (Auto) 0.5 Thou/mm3 (0.0-0.8); Monocytes % (Auto) 11 % (0-12); Neutrophils # (Auto) 3.8 Thou/mm3 (1.8-7.7); Neutrophils % (Auto) 76 % (37-80); Nucleated Red Blood Cell % 0 /100 WBC (0); RDW Standard Deviation 58.7 fL (35.1-43.9)
--- NOTE | 2025-02-04 16:15 | ESPR_ITS ---
<Statement entered by Isaura Lucero MD - 02/05/25 06:05> Patient was seen and examined by me personally. I have directly supervised and reviewed documentation by the team resident and agree with its findings with any exceptions or additional findings as below. Plan of care was discussed with the attending, Dr. Graves. Mr. Gill is a 69-year-old male with past medical history of hypertension, ESRD on HD, and prostate cancer who presented initially on 01/29/2025 with confusion and falls. Today patient had right IJ cath removed after dialysis. Plan for 2 day line holiday with new line placement following if blood cultures negative 48 hours. Isaura Lucero, PGY-2 Documentation for date of: 02/04/25 Subjective Subjective Interval history: No acute overnight events reported, pt is seen and examined at bedside during dialysis. Pt is alert and oriented, he appears to be more awake and talkative. Pt endorses to feeling much better today, denies chest pain, palpitations, denies body aches and chills. Pt has remained afebrile overnight. pt is noted to have mild tremor noted in his hands. Pt home gabapentin 400mg TID was resumed which is changed to renally dose in ESRD to 300mg daily. Pt states he makes very small amount of urine. Pt also states he completed an entire year of fluconazole treatment for Cocci in the past. therefore will discontinue fluconazole and will determine resuming it after receiving titers from UCD. Vitals and labs are reviewed and are stable. Pt's dialysis cath was removed today for holiday and will plan to replace on Tuesday. repeat BC are negative at 24hrs and cath tip culture pending. Pt has no other complains. Exam Vital Signs Temp Pulse Resp BP Pulse Ox O2 Del Method O2 Flow Rate 98.6 F 109 H 19 118/78 97 Nasal Cannula 3 02/04/25 10:57 02/04/25 14:45 02/04/25 14:45 02/04/25 14:45 02/04/25 14:45 02/04/25 14:45 02/04/25 14:45 Narrative Exam GENERAL: elderly male, awake and not in acute distress NEURO: no focal neurological deficits noted HEENT: Atraumatic, Normocephalic. mucous membranes moist. Eyes open, symmetrical, & clear, RIJ present HEART: Normal Heart Sounds LUNGS: Clear to auscultation with no wheezing or crackles. ABDOMEN: soft, non-distended, non-tender, bowel sounds heard, no guarding or rebound tenderness SKIN: No Rash or ecchymoses EXTREMITIES: No edema, tenderness, able to move all 4 extremities, pedal pulses palpated Objective Labs 02/05/25 05:01 02/05/25 05:01 ABG Interpretation ABG results: 01/29/25 01/30/25 17:25 11:00 ABG pH 7.30 L ABG pCO2 31 L ABG pO2 91 ABG HCO3 15 L ABG O2 Saturation 97 ABG Base Excess -10 L VBG pH 7.20 L VBG pCO2 46 VBG pO2 32 VBG Base Excess -10 L Quality Measures Quality Measures VTE prophylaxis (SCDs) Advance care planning discussed with:: patient Assessment & Plan Assessment Current Active Medications: Generic Name Dose Route Start Last Admin Trade Name Freq PRN Reason Stop Dose Admin Acetaminophen 650 mg 01/29/25 17:42 02/03/25 17:52 Acetaminophen 325 Mg Tablet PO 02/28/25 17:41 650 mg Q6H PRN Administration Fever >100.3 or pain 1-3 Albuterol/Ipratropium 3 ml 01/29/25 17:42 01/30/25 17:18 Albuterol/Ipratropium (Duoneb) Rt Karolina 3 Ml Nebu INH 02/28/25 17:41 3 ml Q4HR PRN Administration SHORTNESS OF BREATH OR WHEEZE Aspirin 81 mg 01/30/25 09:00 02/04/25 09:26 Aspirin Ec 81 Mg Tabec PO 03/01/25 08:59 81 mg QDAY JENS Administration Atorvastatin Calcium 40 mg 01/29/25 21:00 02/03/25 21:28 Atorvastatin Calcium 20 Mg Tablet PO 02/28/25 20:59 40 mg HS JENS Administration Citric Acid/Sodium Citrate 30 ml 01/30/25 09:00 02/04/25 09:26 Citric Acid/Sodium Citr 15 Ml Udc (Bicitra) PO 03/01/25 08:59 30 ml BID JENS Administration Fluconazole 400 mg 02/03/25 18:00 02/03/25 17:52 Fluconazole 100 Mg Tablet PO 02/10/25 17:59 400 mg Q24H JENS Administration Gabapentin 300 mg 02/05/25 17:00 Gabapentin 300 Mg Capsule PO 03/07/25 16:59 DAILY JENS Heparin Sodium (Porcine) 3,300 unit 01/30/25 15:12 02/01/25 09:27 Heparin Sod Inj 1000 Unit/Ml Vial 10 Ml INDWELLCAT 02/13/25 15:11 3,300 unit X1 PRN Administration DIALYSIS Albumin Human 25 gm in 100 mls @ 100 mls/hr 01/30/25 11:00 01/31/25 08:06 Albuminar-25 Ivpb IV 100 mls/hr PRN PRN Administration DIALYSIS Ceftriaxone Sodium/Dextrose 2 gm in 50 mls @ 100 mls/hr 02/03/25 18:00 02/03/25 17:53 Rocephin/D5w 2gm IV 02/10/25 17:59 100 mls/hr Q24H JENS Administration Pharmacy Consult 1 each 01/29/25 18:00 Pharmacy To Consult Patient XX 02/28/25 17:59 QDAY PRN CONSULT Sevelamer Carbonate 800 mg 01/30/25 08:00 02/04/25 12:30 Sevelamer Carbonate 800 Mg Tablet PO 03/01/25 07:59 800 mg TIDWM JENS Administration Vitamin B Complex/Vit C/Folic Acid 1 tab 01/30/25 09:00 02/04/25 09:26 Vit B12/Vit C/Fa (Nephrovite) Tablet PO 03/01/25 08:59 1 tab QDAY JENS Administration Plan Mr. Gill is a 69-year-old male with a past medical history significant for primary hypertension, ESRD on HD via RIJ [facility] // follows with Dr. Sandoval and prostate cancer s/p radical prostatectomy [2014] with bone mets currently on hormonal therapy [Xtandi] follows at [facility] in [place] presenting with a chief complaint of confusion and falls. Patient will be admitted for workup and management of likely sepsis secondary to infected RIJ catheter. 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 Repeat BC ordered - UC no growth - Tyelenol ordered PRN for fever - Rocephin ordered 02/03- ? Zosyn 4.5 g IV twice daily on [01/30?02/02) ? Azithromycin 500 mg IV (02/02) ? Pt received fluconazole 400 Mg p.o. daily for 1 year previously, During this admission IgM cocci is positive however IgG is pending therefore will discontinue fluconazole for now and resume based on UCD titers. ? ID consult, pending recommendations ? 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 C. difficile negative DDx: Viral gastroenteritis, medication side effect, parasitic infection Plan: ? F/u stool culture, stool WBC (negative), ova/cyst/parasites, calprotectin and Giardia ordered - C. diff negative ? Chest/abdomen/pelvis CT ordered to further investigate etiology #Pancytopenia #Neutropenia #Thrombocytopenia Hb 10.4, WBC 1.6, PLT 23 ANC 1.129 Patient has no signs of active bleeding. No spontaneous petechiae, purpura noted on skin exam, also no signs of blood in the stool. Patient no longer produces urine as he is on hemodialysis Plan: ? Reverse isolation precautions ? Bleeding precautions ? Monitor for signs and symptoms of bleeding ? Peripheral blood smear ordered ? [facility], Dr. Burt consulted. Appreciate recommendations #ESRD on HD via RIJ PermCath T//S Follows up with Dr. Sandoval. Plan: ? Renally dose medications ? Avoid nephrotoxic agents ? Nephrology, Dr. Gotti consulted and closely following the case. Appreciate recommendations - RIJ PermCath removed 02/04 for holiday, will replace on tuesday #Acute encephalopathy, likely metabolic?resolved #Ground-level falls DDx: Sepsis, TIA, CVA, medication side effect Patient presented with confusion which is now resolving but no localizing deficits. CT brain and CTA were both negative for any acute findings NIHSS +0 Plan: - Continue ASA - Neurology Consulted, Appreciated recs - Neuro Checks q4h - Continue high intensity statin #Troponinemia?resolved DDx: ESRD, sepsis, NSTEMI Troponin increased from 0.102 to 0.11 Plan: ? No need to further trend. #History of Prostate cancer s/p radical prostatectomy with bone mets on hormonal therapy On Xtandi as outpatient. Follows [facility] in [place] Plan: ? Continue outpatient follow-up #Primary hypertension ? Antihypertensives on hold due to sepsis and low blood pressure #Health Maintenance Disposition: Telemetry DVT prophylaxis: Heparin GI prophylaxis: None indicated at this time Diet: Renal, 1500 cc fluid restriction CODE STATUS: Full Assessment and plan discussed with my senior resident Dr. Lucero & attending physician Dr. Ely Zamudio (PGY-1)- Internal medicine resident Attending Provider Attestation/Addendum Face to face evaluation was performed by me. I have personally seen and examined the patient. I discussed the assessment and plan with the entire medicine team. I reviewed available medical records, imaging studies, laboratory results. I agree with the above subjective data, objective findings, assessment and plan except as corrected by me or noted below Febrile illness due to below Serratia marcescens bacteremia Suspected dialysis catheter?TDC related infection End-stage renal disease on hemodialysis Tuesday//Tuesday Pancytopenia Hyperlipidemia -Continue with empiric antibiotics-2 g Rocephin daily for now Remove dialysis catheter after dialysis session?plan for today. Provide with dialysis catheter holiday - Dialysis per nephrology, appreciate help - Monitor vitals, clinical course, labs closely - DVT prophylaxis with heparin product Hopefully soon start disposition More than > 30 minutes spent on the encounter
[2025-02-04 16:21] LABS: Alanine Aminotransferase 14 U/L (10-49); Albumin, Serum 3.4 gm/dL (3.4-4.8); Albumin/Globulin Ratio 1.1 (1.2-2.2); Alkaline Phosphatase 135 U/L (46-116); Anion Gap 13 (7-16); Aspartate Amino Transferase 30 U/L (0-34); BUN/Creatinine Ratio 6 Ratio (12-20); Bilirubin,Total 0.4 mg/dL (0.3-1.2); Blood Urea Nitrogen 30 mg/dL (9-23); Calcium 8.3 mg/dL (8.3-10.6); Calcium (Corrected) 8.8 mg/dL (8.5-10.1); Carbon Dioxide 29.3 mMol/L (20.0-31.0); Chloride 98 mMol/L (98-107); Creatinine (Component) 4.8 mg/dL (0.6-1.3); Estimated Creatinine Clearance 13.9 mL/min (>60); Glucose 127 mg/dL (74-106); Magnesium 1.9 mg/dL (1.6-2.6); Osmolality,Calculated 287 (275-295); Phosphorous 3.9 mg/dL (2.4-5.1); Sodium 140 mMol/L (136-145); Total Protein 6.4 gm/dL (5.7-8.2); eGFR 12 See Note
[2025-02-04 16:26] LABS: INR 1.1 (0.9-1.3); Partial Thromboplastin Time 31.5 Seconds (22.0-36.0); Prothrombin Time 12.1 Seconds (9.0-12.2)
[2025-02-04 16:29] LABS: Platelet Count 55 Thou/mm3 (140-440)
[2025-02-04] MEDS: cefTRIAXone/D5w 2gm 2 GM/50 ML BAG IV (17:23)
[2025-02-04 17:59] LABS: Slide Review Platelets confirmed
[2025-02-04] MEDS: ATORVASTATIN CALCIUM 20 MG TABLET 40 MG PO (20:45)
--- NOTE | 2025-02-04 22:02 | ESPR_ITS ---
Documentation for date of: 02/04/25 Subjective Subjective Interval history: Patient was seen in [facility] today with his son at the bedside, noted to be resting after lunch, family noticed that he is tremulous, more so with holding objects. Exam - Neurology Vital Signs Temp Pulse Resp BP Pulse Ox O2 Del Method O2 Flow Rate 98.4 F 106 H 28 H 120/72 98 Nasal Cannula 2 02/04/25 20:00 02/04/25 20:00 02/04/25 20:00 02/04/25 20:00 02/04/25 20:00 02/04/25 20:00 02/04/25 16:00 Narrative Exam Gen: Chronically ill-appearing male in NAD. HEENT: NCAT, PERRLA, EOMI, MMM, anicteric conjunctivae. CVS: normal S1 and S2. RRR. No M/R/G. Resp: CTA B/L. No rhonchi, rales, crackles or wheezing. Abd: soft, non-tender, non-distended. BS+ in all 4 quadrants. MSK: Good ROM in BUE & BLE. No edema or rash. Neuro: Bilateral hearing loss. Strength 5/5 in BUE & BLE. Resting at present Psych: appropriate mood and affect Objective Labs 02/04/25 15:43 02/04/25 15:43 Labs: Laboratory Results - last 24 hr 02/04/25 15:43 WBC 5.0 D RBC 3.20 L Hgb 9.8 L Hct 29.9 L MCV 93 MCH 30.6 MCHC 32.8 RDW Std Deviation 58.7 H Plt Count 55 L D Neut % (Auto) 76 Lymph % (Auto) 7 L [place] % (Auto) 11 Eos % (Auto) 2 Baso % (Auto) 0 Neut # (Auto) 3.8 Lymph # (Auto) 0.4 L [place] # (Auto) 0.5 Eos # (Auto) 0.1 Baso # (Auto) 0.0 Immature Gran # (Auto) 0.20 H Absolute Nucleated RBC 0.00 Immature Gran % 4 H Nucleated RBC % 0 PT 12.1 INR 1.1 APTT 31.5 Sodium 140 Potassium 4.0 Chloride 98 Carbon Dioxide 29.3 Anion Gap 13 BUN 30 H Creatinine 4.8 H* D Estim Creat Clear Calc 13.9 L eGFR 12 L* BUN/Creatinine Ratio 6 L Glucose 127 H Calculated Osmolality 287 Calcium 8.3 Corrected Calcium 8.8 Phosphorus 3.9 Magnesium 1.9 Total Bilirubin 0.4 AST 30 ALT 14 Alkaline Phosphatase 135 H Total Protein 6.4 Albumin 3.4 Globulin 3.0 Albumin/Globulin Ratio 1.1 L Misc Test Result Platelets confirmed ABG Interpretation ABG results: 01/29/25 01/30/25 17:25 11:00 ABG pH 7.30 L ABG pCO2 31 L ABG pO2 91 ABG HCO3 15 L ABG O2 Saturation 97 ABG Base Excess -10 L VBG pH 7.20 L VBG pCO2 46 VBG pO2 32 VBG Base Excess -10 L Assessment & Plan Assessment and plan (1) Altered mental status: Status: Resolved (2) ESRD (end stage renal disease) on dialysis: Status: Chronic (3) Sepsis: Status: Acute Additional Assessment & Plan Additional Plan: The patient is a 69-year-old male with a past medical history of hypertension, end-stage renal disease on dialysis //Tue following with Dr. Sandoval, prostate cancer status post prostatectomy with bone metastasis on Xtandi who was brought in due to altered mental status and falls. #Acute encephalopathy, resolved #Ground level falls Most likely in the setting of sepsis. CT head was negative foe acute intracranial pathology. Plan: - continue with antibiotics - continue with dialysis as scheduled - use of hearing aids - Family visitation - Natural sunlight during day hours - FU with blood and urine cultures - blood pressure control - physical therapy - avoid benzodiazepines, anticholinergics if possible - aspirin 81 mg qday #Likely sepsis secondary to infected RIJ catheter # Tremors: Will resume GP 400 mg tid #ESRD on HD via RIJ PermCath // #Troponinemia #History of Prostate cancer s/p radical prostatectomy with bone mets on hormonal therapy #Primary hypertension - management per primary team
[2025-02-05] VITALS (8 sets, daily range): BP systolic 109–149; BP diastolic 68–88; PULSE 88–108; RESP 13–25; TEMP 36.1–37.3; O2SAT 93–100; BMI 15.0
[2025-02-05] MEDS: GABAPENTIN 100 MG CAPSULE 400 MG PO ×3 (05:27→21:30)
[2025-02-05 05:46] LABS: Basophils % (Auto) 0 % (0-2.5); Eosinophils # (Auto) 0.1 Thou/mm3 (0.0-0.5); Eosinophils % (Auto) 2 % (0-10); Hematocrit 29.1 % (41.0-53.0); Hemoglobin 9.6 g/dL (13.5-16.0); Immature Granulocytes % (Auto) 4 % (0-0); Immature Granulocytes Auto 0.21 Thou/mm3 (0.00-0.00); Lymphocytes # (Auto) 0.5 Thou/mm3 (1.0-4.8); Lymphocytes % (Auto) 8 % (10-50); Mean Corpuscular Hemoglobin 31.1 pg (25.0-35.0); Mean Corpuscular Volume 94 fL (80-100); Monocytes # (Auto) 0.7 Thou/mm3 (0.0-0.8); Monocytes % (Auto) 13 % (0-12); Neutrophils # (Auto) 3.9 Thou/mm3 (1.8-7.7); Neutrophils % (Auto) 73 % (37-80); Nucleated Red Blood Cell % 0 /100 WBC (0); RDW Standard Deviation 59.7 fL (35.1-43.9); Red Blood Count 3.09 Miln/mm3 (4.50-5.90); White Blood Count 5.4 Thou/mm3 (3.8-10.6)
[2025-02-05 06:01] LABS: Alanine Aminotransferase 15 U/L (10-49); Albumin, Serum 3.4 gm/dL (3.4-4.8); Albumin/Globulin Ratio 1.1 (1.2-2.2); Alkaline Phosphatase 158 U/L (46-116); Anion Gap 13 (7-16); Aspartate Amino Transferase 34 U/L (0-34); BUN/Creatinine Ratio 7 Ratio (12-20); Bilirubin,Total 0.3 mg/dL (0.3-1.2); Blood Urea Nitrogen 41 mg/dL (9-23); Calcium 8.6 mg/dL (8.3-10.6); Calcium (Corrected) 9.1 mg/dL (8.5-10.1); Carbon Dioxide 29.4 mMol/L (20.0-31.0); Chloride 98 mMol/L (98-107); Estimated Creatinine Clearance 11.1 mL/min (>60); Glucose 103 mg/dL (74-106); Magnesium 2.1 mg/dL (1.6-2.6); Osmolality,Calculated 289 (275-295); Phosphorous 4.5 mg/dL (2.4-5.1); Potassium 3.9 mMol/L (3.4-5.1); Sodium 140 mMol/L (136-145); Total Protein 6.4 gm/dL (5.7-8.2); eGFR 9 See Note
[2025-02-05 06:14] LABS: Platelet Count 65 Thou/mm3 (140-440)
[2025-02-05 06:28] LABS: Slide Review Platelets confirmed
[2025-02-05] MEDS: ASPIRIN EC 81 MG TABEC PO (09:52)
[2025-02-05] MEDS: VIT B12/Vit C/FA (Nephrovite) TABLET 1 TAB PO (09:52)
[2025-02-05] MEDS: CITRIC ACID/SODIUM CITR 15 ML UDC (BICITRA) 30 ML PO ×2 (09:52→21:31)
[2025-02-05] MEDS: SEVELAMER CARBONATE 800 MG TABLET PO ×3 (09:52→17:09)
--- NOTE | 2025-02-05 12:40 | PC.SS ---
SS met with pt and dtr at bedside to confirm d/c plan is for pt to return home. O2 concentrator, small O2 tank, and walker have been delivered to bedside.
--- NOTE | 2025-02-05 16:32 | ESPR_ITS ---
<Statement entered by Isaura Lucero MD - 02/06/25 00:40> Patient was seen and examined by me personally. I have directly supervised and reviewed documentation by the team resident and agree with its findings with any exceptions or additional findings as below. Plan of care was discussed with the attending, Dr. Bucio. Mr. Gill is a 69-year-old male with past medical history of hypertension, ESRD on HD, and prostate cancer who presented initially on 01/29/2025 with confusion and falls. Patient is currently on a line holiday due to suspected infection with previous right IJ cath. Will plan for placement of new catheter tomorrow at 48-hours post removal time. Will be followed by dialysis. Plan for discharge in 48-72 hours. Isaura Lucero, PGY-2 Documentation for date of: 02/05/25 Subjective Subjective Interval history: No acute overnight events reported. Patient seen and examined at bedside this morning patient is very hard of hearing. Patient does not want to have any complaints, vitals are stable and labs are reviewed, BUN 41, creatinine 6.0, GFR 9. Patient's dialysis cath was removed yesterday and will plan to replace it tomorrow and then continue a session of dialysis schedule. Still pending ID recommendations. Exam Vital Signs Temp Pulse Resp BP Pulse Ox O2 Del Method O2 Flow Rate 97.8 F 93 17 132/82 H 100 Nasal Cannula 2 02/05/25 16:00 02/05/25 16:00 02/05/25 16:00 02/05/25 16:00 02/05/25 16:00 02/05/25 16:02/05/25 06:36 Narrative Exam GENERAL: elderly male, awake and not in acute distress NEURO: no focal neurological deficits noted HEENT: Atraumatic, Normocephalic. mucous membranes moist. Eyes open, symmetrical, & clear, RIJ cath removed-area is clean HEART: Normal Heart Sounds LUNGS: Clear to auscultation with no wheezing or crackles. ABDOMEN: soft, non-distended, non-tender, bowel sounds heard, no guarding or rebound tenderness SKIN: No Rash or ecchymoses EXTREMITIES: No edema, tenderness, able to move all 4 extremities, pedal pulses palpated Objective Labs 02/06/25 04:20 02/06/25 04:20 Labs: Laboratory Results - last 24 hr 02/04/25 02/05/25 15:43 05:01 WBC 5.4 RBC 3.09 L Hgb 9.6 L Hct 29.1 L MCV 94 MCH 31.1 MCHC 33.0 RDW Std Deviation 59.7 H Plt Count 65 L Neut % (Auto) 73 Lymph % (Auto) 8 L [place] % (Auto) 13 H Eos % (Auto) 2 Baso % (Auto) 0 Neut # (Auto) 3.9 Lymph # (Auto) 0.5 L [place] # (Auto) 0.7 Eos # (Auto) 0.1 Baso # (Auto) 0.0 Immature Gran # (Auto) 0.21 H Absolute Nucleated RBC 0.00 Immature Gran % 4 H Nucleated RBC % 0 Sodium 140 Potassium 3.9 Chloride 98 Carbon Dioxide 29.4 Anion Gap 13 BUN 41 H Creatinine 6.0 H* D Estim Creat Clear Calc 11.1 L eGFR 9 L* BUN/Creatinine Ratio 7 L Glucose 103 Calculated Osmolality 289 Calcium 8.6 Corrected Calcium 9.1 Phosphorus 4.5 Magnesium 2.1 Total Bilirubin 0.3 AST 34 ALT 15 Alkaline Phosphatase 158 H D Total Protein 6.4 Albumin 3.4 Globulin 3.0 Albumin/Globulin Ratio 1.1 L Misc Test Result Platelets confirmed Platelets confirmed ABG Interpretation ABG results: 01/29/25 01/30/25 17:25 11:00 ABG pH 7.30 L ABG pCO2 31 L ABG pO2 91 ABG HCO3 15 L ABG O2 Saturation 97 ABG Base Excess -10 L VBG pH 7.20 L VBG pCO2 46 VBG pO2 32 VBG Base Excess -10 L Quality Measures Quality Measures VTE prophylaxis (SCDs) Advance care planning discussed with:: patient Assessment & Plan Assessment Current Active Medications: Generic Name Dose Route Start Last Admin Trade Name Freq PRN Reason Stop Dose Admin Acetaminophen 650 mg 01/29/25 17:42 02/03/25 17:52 Acetaminophen 325 Mg Tablet PO 02/28/25 17:41 650 mg Q6H PRN Administration Fever >100.3 or pain 1-3 Albuterol/Ipratropium 3 ml 01/29/25 17:42 01/30/25 17:18 Albuterol/Ipratropium (Duoneb) Rt Karolina 3 Ml Nebu INH 02/28/25 17:41 3 ml Q4HR PRN Administration SHORTNESS OF BREATH OR WHEEZE Aspirin 81 mg 01/30/25 09:00 02/05/25 09:52 Aspirin Ec 81 Mg Tabec PO 03/01/25 08:59 81 mg QDAY JENS Administration Atorvastatin Calcium 40 mg 01/29/25 21:00 02/04/25 20:45 Atorvastatin Calcium 20 Mg Tablet PO 02/28/25 20:59 40 mg HS JENS Administration Citric Acid/Sodium Citrate 30 ml 01/30/25 09:00 02/05/25 09:52 Citric Acid/Sodium Citr 15 Ml Udc (Bicitra) PO 03/01/25 08:59 30 ml BID JENS Administration Gabapentin 400 mg 02/05/25 06:00 02/05/25 14:01 Gabapentin 100 Mg Capsule PO 03/07/25 05:59 400 mg TID JENS Administration Heparin Sodium (Porcine) 3,300 unit 01/30/25 15:12 02/01/25 09:27 Heparin Sod Inj 1000 Unit/Ml Vial 10 Ml INDWELLCAT 02/13/25 15:11 3,300 unit X1 PRN Administration DIALYSIS Albumin Human 25 gm in 100 mls @ 100 mls/hr 01/30/25 11:00 01/31/25 08:06 Albuminar-25 Ivpb IV 100 mls/hr PRN PRN Administration DIALYSIS Ceftriaxone Sodium/Dextrose 2 gm in 50 mls @ 100 mls/hr 02/03/25 18:00 02/04/25 17:23 Rocephin/D5w 2gm IV 02/10/25 17:59 100 mls/hr Q24H JENS Administration Pharmacy Consult 1 each 01/29/25 18:00 Pharmacy To Consult Patient XX 02/28/25 17:59 QDAY PRN CONSULT Sevelamer Carbonate 800 mg 01/30/25 08:00 02/05/25 11:33 Sevelamer Carbonate 800 Mg Tablet PO 03/01/25 07:59 800 mg TIDWM JENS Administration Vitamin B Complex/Vit C/Folic Acid 1 tab 01/30/25 09:00 02/05/25 09:52 Vit B12/Vit C/Fa (Nephrovite) Tablet PO 03/01/25 08:59 1 tab QDAY JENS Administration Plan Mr. Gill is a 69-year-old male with a past medical history significant for primary hypertension, ESRD on HD via RIJ PermCath // follows with Dr. Sandoval and prostate cancer s/p radical prostatectomy [2014] with bone mets currently on hormonal therapy [Xtandi] follows at [facility] in [place] presenting with a chief complaint of confusion and falls. Patient will be admitted for workup and management of likely sepsis secondary to infected RIJ catheter. 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 Repeat BC negative at 48 hrs - UC no growth - Tyelenol ordered PRN for fever - Rocephin ordered 02/03- ? Zosyn 4.5 g IV twice daily on [01/30?02/02) ? Azithromycin 500 mg IV (02/02) ? Pt received fluconazole 400 Mg p.o. daily for 1 year previously, During this admission IgM cocci is positive however IgG is pending therefore will discontinue fluconazole for now and resume based on UCD titers. ? ID consult, pending recommendations ? Antipyretics - Removed RIJ HD cath 02/04, will replace on 02/06 #Acute diarrhea, improved Patient had numerous episodes of watery diarrhea since yesterday. C. difficile negative DDx: Viral gastroenteritis, medication side effect, parasitic infection Plan: ? F/u stool culture, stool WBC (negative), ova/cyst/parasites, calprotectin and Giardia ordered - C. diff negative #Pancytopenia #Neutropenia #Thrombocytopenia Hb 10.4, WBC 1.6, PLT 23 ANC 1.129 Patient has no signs of active bleeding. No spontaneous petechiae, purpura noted on skin exam, also no signs of blood in the stool. Patient no longer produces urine as he is on hemodialysis Plan: ? Reverse isolation precautions ? Bleeding precautions ? Monitor for signs and symptoms of bleeding ? Peripheral blood smear ordered ? Embedded Case Manager, Dr. Burt consulted. Appreciate recommendations #ESRD on HD via RIJ PermCath / Follows up with Dr. Sandoval. Plan: ? Renally dose medications ? Avoid nephrotoxic agents ? Nephrology, Dr. Gotti consulted and closely following the case. Appreciate recommendations - RIJ PermCath removed 02/04 for holiday, will replace on Tuesday #Acute encephalopathy, likely metabolic?resolved #Ground-level falls DDx: Sepsis, TIA, CVA, medication side effect Patient presented with confusion which is now resolving but no localizing deficits. CT brain and CTA were both negative for any acute findings NIHSS +0 Plan: - Continue ASA - Neurology Consulted, Appreciated recs - Neuro Checks q4h - Continue high intensity statin #Troponinemia?resolved DDx: ESRD, sepsis, NSTEMI Troponin increased from 0.102 to 0.11 Plan: ? No need to further trend. #History of Prostate cancer s/p radical prostatectomy with bone mets on hormonal therapy On Xtandi as outpatient. Follows [facility] in [place] Plan: ? Continue outpatient follow-up #Primary hypertension ? Antihypertensives on hold due to sepsis and low blood pressure #Health Maintenance Disposition: Telemetry DVT prophylaxis: Heparin GI prophylaxis: None indicated at this time Diet: Renal, 1500 cc fluid restriction CODE STATUS: Full Assessment and plan discussed with my senior resident Dr. Lucero & attending physician Dr. Fortunato Zamudio (PGY-1)- Internal medicine resident Attending Provider Attestation/Addendum I attest that I was physically present for the evaluation, physical examination, lab and imaging review of the patient with the residents. I discussed the case with the residents and agree with the findings and plans of care as documented above. At bedside today, patient appears comfortable and denies any new complaints. Continues to be on IV Rocephin for Serratia bacteremia. Right IJ catheter was removed, area appears clean and dry. Had multiple episodes of loose stool, stool studies were ordered, C. difficile is negative. Likely secondary to antibiotic therapy. Patient and family counseled. We will plan for hemodialysis catheter placement tomorrow after 48 hours of removal. Infectious disease consulted, awaiting recommendations. Patient will need hemodialysis session after catheter placement. Jac Bucio MD
[2025-02-05] MEDS: cefTRIAXone/D5w 2gm 2 GM/50 ML BAG IV (17:09)
[2025-02-05] MEDS: ATORVASTATIN CALCIUM 20 MG TABLET 40 MG PO (21:30)
--- NOTE | 2025-02-05 23:37 | PD.NEUROPROG ---
Documentation for date of: 02/05/25 Subjective Subjective Interval history: Patient was seen in [facility] today, no new symptoms reported. Exam - Neurology Vital Signs Temp Pulse Resp BP Pulse Ox O2 Del Method O2 Flow Rate 99.2 F 93 13 149/79 H 98 Nasal Cannula 2 02/05/25 20:00 02/05/25 20:38 02/05/25 20:38 02/05/25 20:00 02/05/25 20:38 02/05/25 20:00 02/05/25 20:38 Narrative Exam Gen: Chronically ill-appearing male in NAD. HEENT: NCAT, PERRLA, EOMI, MMM, anicteric conjunctivae. CVS: normal S1 and S2. RRR. No M/R/G. Resp: CTA B/L. No rhonchi, rales, crackles or wheezing. Abd: soft, non-tender, non-distended. BS+ in all 4 quadrants. MSK: Good ROM in BUE & BLE. No edema or rash. Neuro: Bilateral hearing loss. Strength 5/5 in BUE & BLE. Resting at present Psych: appropriate mood and affect Objective Labs 02/05/25 05:01 02/06/25 04:20 Labs: Laboratory Results - last 24 hr 02/05/25 05:01 WBC 5.4 RBC 3.09 L Hgb 9.6 L Hct 29.1 L MCV 94 MCH 31.1 MCHC 33.0 RDW Std Deviation 59.7 H Plt Count 65 L Neut % (Auto) 73 Lymph % (Auto) 8 L [place] % (Auto) 13 H Eos % (Auto) 2 Baso % (Auto) 0 Neut # (Auto) 3.9 Lymph # (Auto) 0.5 L [place] # (Auto) 0.7 Eos # (Auto) 0.1 Baso # (Auto) 0.0 Immature Gran # (Auto) 0.21 H Absolute Nucleated RBC 0.00 Immature Gran % 4 H Nucleated RBC % 0 Sodium 140 Potassium 3.9 Chloride 98 Carbon Dioxide 29.4 Anion Gap 13 BUN 41 H Creatinine 6.0 H* D Estim Creat Clear Calc 11.1 L eGFR 9 L* BUN/Creatinine Ratio 7 L Glucose 103 Calculated Osmolality 289 Calcium 8.6 Corrected Calcium 9.1 Phosphorus 4.5 Magnesium 2.1 Total Bilirubin 0.3 AST 34 ALT 15 Alkaline Phosphatase 158 H D Total Protein 6.4 Albumin 3.4 Globulin 3.0 Albumin/Globulin Ratio 1.1 L Misc Test Result Platelets confirmed ABG Interpretation ABG results: 01/29/25 01/30/25 17:25 11:00 ABG pH 7.30 L ABG pCO2 31 L ABG pO2 91 ABG HCO3 15 L ABG O2 Saturation 97 ABG Base Excess -10 L VBG pH 7.20 L VBG pCO2 46 VBG pO2 32 VBG Base Excess -10 L Assessment & Plan Assessment and plan (1) Altered mental status: Status: Resolved (2) ESRD (end stage renal disease) on dialysis: Status: Chronic (3) Sepsis: Status: Acute Additional Assessment & Plan Additional Plan: The patient is a 69-year-old male with a past medical history of hypertension, end-stage renal disease on dialysis //Tue following with Dr. Sandoval, prostate cancer status post prostatectomy with bone metastasis on Xtandi who was brought in due to altered mental status and falls. #Acute encephalopathy, resolved #Ground level falls Most likely in the setting of sepsis. CT head was negative for acute intracranial pathology. Plan: - continue with antibiotics - continue with dialysis as scheduled - blood pressure control - Continue aspirin 81 mg qday #Likely sepsis secondary to infected RIJ catheter # Tremors: Continue GP 400 mg tid #ESRD on HD via RIJ PermCath // #Troponinemia #History of Prostate cancer s/p radical prostatectomy with bone mets on hormonal therapy #Primary hypertension - management per primary team
[2025-02-06] VITALS (15 sets, daily range): BP systolic 129–146; BP diastolic 76–90; PULSE 70–95; RESP 12–22; TEMP 36–36.7; O2SAT 92–99; BMI 24.2; BMI 15.0
[2025-02-06 05:44] LABS: Basophils % (Auto) 0 % (0-2.5); Eosinophils # (Auto) 0.2 Thou/mm3 (0.0-0.5); Eosinophils % (Auto) 4 % (0-10); Hemoglobin 9.3 g/dL (13.5-16.0); Immature Granulocytes % (Auto) 2 % (0-0); Immature Granulocytes Auto 0.07 Thou/mm3 (0.00-0.00); Lymphocytes # (Auto) 0.4 Thou/mm3 (1.0-4.8); Lymphocytes % (Auto) 8 % (10-50); Mean Corpuscular HGB Conc 33.2 g/dl (31.0-37.0); Mean Corpuscular Volume 93 fL (80-100); Monocytes # (Auto) 0.5 Thou/mm3 (0.0-0.8); Monocytes % (Auto) 12 % (0-12); Neutrophils # (Auto) 3.2 Thou/mm3 (1.8-7.7); Neutrophils % (Auto) 74 % (37-80); Nucleated Red Blood Cell % 0 /100 WBC (0); RDW Standard Deviation 56.9 fL (35.1-43.9); White Blood Count 4.3 Thou/mm3 (3.8-10.6)
[2025-02-06 06:37] LABS: Alanine Aminotransferase 14 U/L (10-49); Albumin, Serum 3.2 gm/dL (3.4-4.8); Albumin/Globulin Ratio 1.1 (1.2-2.2); Alkaline Phosphatase 151 U/L (46-116); Anion Gap 16 (7-16); Aspartate Amino Transferase 31 U/L (0-34); BUN/Creatinine Ratio 7 Ratio (12-20); Bilirubin,Total 0.2 mg/dL (0.3-1.2); Blood Urea Nitrogen 53 mg/dL (9-23); Calcium 8.3 mg/dL (8.3-10.6); Calcium (Corrected) 8.9 mg/dL (8.5-10.1); Carbon Dioxide 28.5 mMol/L (20.0-31.0); Chloride 94 mMol/L (98-107); Creatinine (Component) 7.3 mg/dL (0.6-1.3); Estimated Creatinine Clearance 9.1 mL/min (>60); Globulin 2.9 gm/dL (2.3-3.5); Glucose 90 mg/dL (74-106); Magnesium 2.1 mg/dL (1.6-2.6); Osmolality,Calculated 290 (275-295); Phosphorous 5.1 mg/dL (2.4-5.1); Sodium 138 mMol/L (136-145); Total Protein 6.1 gm/dL (5.7-8.2); eGFR 7 See Note
[2025-02-06 08:02] LABS: Platelet Count 71 Thou/mm3 (140-440)
[2025-02-06 08:28] LABS: Slide Review Platelets confirmed
--- NOTE | 2025-02-06 09:32 | PC.NURSE ---
Report given to yard laborer nurse Steph.
[2025-02-06 10:13] LABS: INR 1.1 (0.9-1.3); Partial Thromboplastin Time 29.6 Seconds (22.0-36.0); Prothrombin Time 11.7 Seconds (9.0-12.2)
--- NOTE | 2025-02-06 10:37 | PC.SS ---
Follow up note: New dialysis cath placed today. Pt will have dialysis today. Pt is possible dc home tomorrow.
--- NOTE | 2025-02-06 14:00 | XR_ITS ---
Ultrasound-guided needle placement right common femoral vein Permanent tunneled dialysis catheter insertion, percutaneous Fluoroscopy AP abdomen portable, single view. Date and time of procedure: February 06, 2025 1410 hours INDICATIONS: Renal failure, need for stat and long-term dialysis Informed consent provided Technique: A timeout was completed verifying correct patient, procedure, site, positioning, and special equipment if applicable. The patient was placed in a dependent position appropriate for dialysis catheter placement based on the vein to be cannulated. The patient'sright groin was prepped and draped in sterile fashion. Maximum Sterile Barrier Technique used including cap, mask, sterile gown, sterile gloves, and sterile full body drape. If ultrasound technique used: sterile gel and sterile probe covers. Hand Hygiene performed using proper scrub, soap and water, or alcohol-based hand rub. 1% lidocaine was used to anesthetize the surrounding skin area The [facility] [place] portable ultrasound apparatus utilized to confirm patency of the right common femoral vein Utilizing ultrasonographic guidance successful 21-gauge needle puncture into the right common femoral vein. Ultrasound images were recorded and stored. Vessel micropuncture was performed with 21-gauge needle. 0.18 wire guide is introduced into the vein. 0.18 wire is introduced into the vena cava under fluoroscopy. Subcutaneous tunnel formed in the right groin. Permanent tunneled dialysis catheter placed in the subcutaneous tunnel. Dilators were introduced over the J-wire guide. Tunneled dialysis catheter is introduced through a dilator with venous sheath into the inferior vena cava under fluoroscopic guidance. The catheter is sutured in place to the skin and a sterile dressing applied. Perfusion to the extremity distal to the point of catheter insertion is checked and found to be adequate Attending radiologist was present for the entire procedure Estimated blood loss2 cc. The patient tolerated the procedure well and there were no complications Impression: Successful ultrasound-guided needle placement right common femoral vein Successful permanent tunneled dialysis catheter insertion, percutaneous Fluoroscopy 0.6 minute radiation dose 4.55 milligray 1 spot fluoroscopic abdomen films. AP abdomen at completion procedure demonstrates satisfactory position dialysis catheter. May use dialysis catheter.
--- NOTE | 2025-02-06 14:04 | ESPR_ITS ---
Subjective Subjective Interval history: day 8 abx for presumptive iv associated bacteremia. ua neg. urine cx neg. we typically do not culture cath tips but you did already, we can usually treat thru bacteremia in an HD PT with an effective agent per hd for 14d. if line removed, we can shorten to 10. Exam Vital Signs Temp Pulse Resp BP Pulse Ox O2 Del Method O2 Flow Rate 97.0 F 87 18 129/83 95 Room Air 2 02/06/25 08:00 02/06/25 11:44 02/06/25 09:06 02/06/25 08:00 02/06/25 09:06 02/06/25 08:00 02/06/25 09:06 Narrative Exam out of room. to get new permcath presumably, Objective - Internal Medicine Labs 02/06/25 04:20 02/06/25 04:20 Labs: Laboratory Results - last 24 hr 02/06/25 02/06/25 04:20 09:25 WBC 4.3 RBC 3.00 L Hgb 9.3 L Hct 28.0 L MCV 93 MCH 31.0 MCHC 33.2 RDW Std Deviation 56.9 H Plt Count 71 L Neut % (Auto) 74 Lymph % (Auto) 8 L [place] % (Auto) 12 Eos % (Auto) 4 Baso % (Auto) 0 Neut # (Auto) 3.2 Lymph # (Auto) 0.4 L [place] # (Auto) 0.5 Eos # (Auto) 0.2 Baso # (Auto) 0.0 Immature Gran # (Auto) 0.07 H Absolute Nucleated RBC 0.00 Immature Gran % 2 H Nucleated RBC % 0 PT 11.7 INR 1.1 APTT 29.6 Sodium 138 Potassium 4.0 Chloride 94 L Carbon Dioxide 28.5 Anion Gap 16 BUN 53 H Creatinine 7.3 H* D Estim Creat Clear Calc 9.1 L eGFR 7 L* BUN/Creatinine Ratio 7 L Glucose 90 Calculated Osmolality 290 Calcium 8.3 Corrected Calcium 8.9 Phosphorus 5.1 Magnesium 2.1 Total Bilirubin 0.2 L AST 31 ALT 14 Alkaline Phosphatase 151 H Total Protein 6.1 Albumin 3.2 L Globulin 2.9 Albumin/Globulin Ratio 1.1 L Misc Test Result Platelets confirmed ABG Interpretation ABG results: 01/29/25 01/30/25 17:25 11:00 ABG pH 7.30 L ABG pCO2 31 L ABG pO2 91 ABG HCO3 15 L ABG O2 Saturation 97 ABG Base Excess -10 L VBG pH 7.20 L VBG pCO2 46 VBG pO2 32 VBG Base Excess -10 L Assessment & Plan A&P Narrative presumptive iv associated bacteremia, serratia ckd, since 2023 hld by meds ok to change to a po quinolone likely levaquin 250/day for remainder of 10 d \rx get cipriano in the unlikely event of a relapse. Time Spent With Patient Time: Total time spent is greater than 50% in coordination of care (as documented) at patient's floor/unit and/or counseling patient:
--- NOTE | 2025-02-06 14:15 | PC.NURSE ---
Patient to labor crew supervisor/IR via gurney in stable condition.
[2025-02-06] MEDS: HEPARIN SOD LOCK SYR 100 UNIT/ML 500 UNIT IV (14:38)
[2025-02-06] MEDS: fentaNYL CIT INJ 50 mCg/ML AMP 2ML 75 MCG IVP (14:39)
[2025-02-06] MEDS: LIDOCAINE INJ PF 1% 30 ML VIAL 10 ML INFL (14:40)
[2025-02-06] MEDS: HEPARIN SOD INJ 1000 UNIT/ML VIAL 4400 UNIT INDWELLCAT (15:39)
--- NOTE | 2025-02-06 15:55 | ESPR_ITS ---
Subjective Subjective Interval history: back from ir . has new fem line. not ideal, but assume that ir could not use L neck for line Exam Vital Signs Temp Pulse Resp BP Pulse Ox O2 Del Method O2 Flow Rate 97.0 F 85 18 145/80 H 97 Nasal Cannula 2 02/06/25 08:00 02/06/25 15:12 02/06/25 15:12 02/06/25 15:12 02/06/25 15:12 02/06/25 15:12 02/06/25 15:12 Narrative Exam movement disorder noted. [place]. rest of exam benign. Objective - Internal Medicine Labs 02/06/25 04:20 02/06/25 04:20 Labs: Laboratory Results - last 24 hr 02/06/25 02/06/25 04:20 09:25 WBC 4.3 RBC 3.00 L Hgb 9.3 L Hct 28.0 L MCV 93 MCH 31.0 MCHC 33.2 RDW Std Deviation 56.9 H Plt Count 71 L Neut % (Auto) 74 Lymph % (Auto) 8 L [place] % (Auto) 12 Eos % (Auto) 4 Baso % (Auto) 0 Neut # (Auto) 3.2 Lymph # (Auto) 0.4 L [place] # (Auto) 0.5 Eos # (Auto) 0.2 Baso # (Auto) 0.0 Immature Gran # (Auto) 0.07 H Absolute Nucleated RBC 0.00 Immature Gran % 2 H Nucleated RBC % 0 PT 11.7 INR 1.1 APTT 29.6 Sodium 138 Potassium 4.0 Chloride 94 L Carbon Dioxide 28.5 Anion Gap 16 BUN 53 H Creatinine 7.3 H* D Estim Creat Clear Calc 9.1 L eGFR 7 L* BUN/Creatinine Ratio 7 L Glucose 90 Calculated Osmolality 290 Calcium 8.3 Corrected Calcium 8.9 Phosphorus 5.1 Magnesium 2.1 Total Bilirubin 0.2 L AST 31 ALT 14 Alkaline Phosphatase 151 H Total Protein 6.1 Albumin 3.2 L Globulin 2.9 Albumin/Globulin Ratio 1.1 L Misc Test Result Platelets confirmed ABG Interpretation ABG results: 01/29/25 01/30/25 17:25 11:00 ABG pH 7.30 L ABG pCO2 31 L ABG pO2 91 ABG HCO3 15 L ABG O2 Saturation 97 ABG Base Excess -10 L VBG pH 7.20 L VBG pCO2 46 VBG pO2 32 VBG Base Excess -10 L Assessment & Plan A&P Narrative presumptive iv associated bacteremia, serratia ckd, since 2023 hld by meds ok to change to a po quinolone likely levaquin 250/day for remainder of 10 d rx from first neg bc get cipriano in the unlikely event of a relapse. if line tip shows a different germ, contact me for alternative rx options. Time Spent With Patient Time: Total time spent is greater than 50% in coordination of care (as documented) at patient's floor/unit and/or counseling patient:
[2025-02-06] MEDS: BISMUTH SUBSALICYL 1 TABLET (Pepto-Bismol) 2 TAB PO (16:24)
--- NOTE | 2025-02-06 17:01 | ESCONSULT_ITS ---
<Statement entered by Alok Juarez MD - 02/08/25 09:26> pt seen with resident. see additional ID notes for details HPI Data of Consult Requesting Physician: Jac Bucio MD Admitting Provider: Gen Mclaughlin MD Attending Provider: Jac Bucio MD Primary Care Provider: Andre Chow PA-C Consult Narrative History of present illness: Patient is a 69-year-old male with a past medical history significant for primary hypertension, ESRD on HD via RIJ PermCath // follows with Dr. Sandoval and prostate cancer s/p radical prostatectomy [2014] with bone mets currently on hormonal therapy [Xtandi] follows at [facility] in [place] presenting with a chief complaint of confusion and falls. ID consulted after patient found to have bacterimia. Patient seen and assessed at bedside after dialysis cath changed. Patient is feeling well and daughter present at bedside to provide some history as well. cc:: cc: Jac Bucio MD Exam Vital Signs Temp Pulse Resp BP Pulse Ox O2 Del Method O2 Flow Rate 97.0 F 94 12 137/89 H 92 L Room Air 2 02/06/25 16:02/06/25 16:02/06/25 16:00 02/06/25 16:00 02/06/25 16:02/06/25 16:00 02/06/25 15:12 Narrative Exam GENERAL: elderly male, awake calm and cooperative, not in acute distress NEURO: no focal neurological deficits noted HEENT: Atraumatic, Normocephalic. mucous membranes moist. Eyes open, symmetrical, & clear, RIJ cath removed-area is clean HEART: Normal Heart Sounds LUNGS: Clear to auscultation with no wheezing or crackles. ABDOMEN: soft, non-distended, non-tender, bowel sounds heard, no guarding or rebound tenderness SKIN: No Rash or ecchymoses EXTREMITIES: No edema, tenderness, able to move all 4 extremities, pedal pulses palpated , HD cath in right femoral vein Results Labs 02/07/25 05:16 02/07/25 05:16 Labs: Short CBC 02/06/25 Range/Units 04:20 WBC 4.3 (3.8-10.6) Thou/mm3 Hgb 9.3 L (13.5-16.0) g/dL Hct 28.0 L (41.0-53.0) % Plt Count 71 L (140-440) Thou/mm3 BMP 02/06/25 04:20 Sodium 138 Potassium 4.0 Chloride 94 L Carbon Dioxide 28.5 BUN 53 H Creatinine 7.3 H* D Glucose 90 Calcium 8.3 Liver Function 02/06/25 Range/Units 04:20 Total Bilirubin 0.2 L (0.3-1.2) mg/dL AST 31 (0-34) U/L ALT 14 (10-49) U/L Alkaline Phosphatase 151 H (46-116) U/L Albumin 3.2 L (3.4-4.8) gm/dL ABG Interpretation ABG results: 01/29/25 01/30/25 17: 11:00 ABG pH 7.30 L ABG pCO2 31 L ABG pO2 91 ABG HCO3 15 L ABG O2 Saturation 97 ABG Base Excess -10 L VBG pH 7.20 L VBG pCO2 46 VBG pO2 32 VBG Base Excess -10 L Quality Measures Quality Measures VTE prophylaxis (SCDs) Advance care planning discussed with:: patient and child Medications Home Medications and Allergies Allergies Allergy/AdvReac Type Severity Reaction Status Date / Time No Known Allergies Allergy Verified 03/17/22 07:04 Visit Medications Acetaminophen (Acetaminophen 325 Mg Tablet) 650 mg PO Q6H PRN PRN Reason: Fever >100.3 or pain 1-3 Stop: 02/28/25 17:41 Last Admin: 02/03/25 17:52 Dose: 650 mg Albuterol/Ipratropium (Albuterol/Ipratropium (Duoneb) Rt Karolina 3 Ml Nebu) 3 ml INH Q4HR PRN PRN Reason: SHORTNESS OF BREATH OR WHEEZE Stop: 02/28/25 17:41 Last Admin: 01/30/25 17:18 Dose: 3 ml Aspirin (Aspirin Ec 81 Mg Tabec) 81 mg PO QDAY JENS Stop: 03/01/25 08:59 Last Admin: 02/06/25 10:23 Dose: Not Given Atorvastatin Calcium (Atorvastatin Calcium 20 Mg Tablet) 40 mg PO HS JENS Stop: 02/28/25 20:59 Last Admin: 02/05/25 21:30 Dose: 40 mg Bismuth Subsalicylate (Bismuth Subsalicyl 1 Tablet (Pepto-Bismol)) 2 tab PO QDAY [facility] Stop: 03/09/25 08:59 Citric Acid/Sodium Citrate (Citric Acid/Sodium Citr 15 Ml Udc (Bicitra)) 30 ml PO BID JENS Stop: 03/01/25 08:59 Last Admin: 02/06/25 10:23 Dose: Not Given Gabapentin (Gabapentin 100 Mg Capsule) 400 mg PO TID JENS Stop: 03/07/25 05:59 Last Admin: 02/06/25 16:20 Dose: Not Given Heparin Sodium (Porcine) (Heparin Sod Inj 1000 Unit/Ml Vial 10 Ml) 3,300 unit INDWELLCAT X1 PRN PRN Reason: DIALYSIS Stop: 02/13/25 15:11 Last Admin: 02/01/25 09:27 Dose: 3,300 unit Albumin Human (Albuminar-25 Ivpb) 25 gm in 100 mls @ 100 mls/hr IV PRN PRN PRN Reason: DIALYSIS Last Admin: 01/31/25 08:06 Dose: 100 mls/hr Levofloxacin (Levofloxacin 250 Mg Tablet) 250 mg PO QDAY [facility] Stop: 02/11/25 12:00 Sevelamer Carbonate (Sevelamer Carbonate 800 Mg Tablet) 800 mg PO TIDWM JENS Stop: 03/01/25 07:59 Last Admin: 02/06/25 13:13 Dose: Not Given Vitamin B Complex/Vit C/Folic Acid (Vit B12/Vit C/Fa (Nephrovite) Tablet) 1 tab PO QDAY [facility] Stop: 03/01/25 08:59 Last Admin: 02/06/25 10:23 Dose: Not Given Discontinued Medications Bismuth Subsalicylate (Bismuth Subsalicyl 1 Tablet (Pepto-Bismol)) 2 tab PO X1 ONE Stop: 02/06/25 10:26 Last Admin: 02/06/25 16:24 Dose: 2 tab Epoetin Afshin (Epoetin Afshin-Epbx Inj 10,000 Unit/Ml Vial (Esrd)) 10,000 unit SC X1 ONE Stop: 02/04/25 09:01 Last Admin: 02/04/25 09:33 Dose: 10,000 unit Fentanyl Citrate (Fentanyl Cit Inj 50 Mcg/Ml Amp 2ml) 75 mcg IVP X1 ONE Stop: 02/06/25 14:31 Last Admin: 02/06/25 14:39 Dose: 75 mcg Fluconazole (Fluconazole 100 Mg Tablet) 400 mg PO QDAY [facility] Stop: 02/06/25 15:29 Last Admin: 02/01/25 09:25 Dose: 400 mg Fluconazole (Fluconazole 100 Mg Tablet) 400 mg PO TUTHSA@1800 [facility] Stop: 02/09/25 17:59 Last Admin: 02/02/25 17:41 Dose: 400 mg Fluconazole (Fluconazole 100 Mg Tablet) 400 mg PO Q24H [facility] Stop: 02/10/25 17:59 Last Admin: 02/03/25 17:52 Dose: 400 mg Gabapentin (Gabapentin 100 Mg Capsule) 400 mg PO TID [facility] Stop: 02/28/25 21:59 Last Admin: 01/30/25 05:15 Dose: 400 mg Gabapentin 100 mg/ Gabapentin (300 mg) 400 mg PO TID [facility] Stop: 02/28/25 21:59 Last Admin: 02/04/25 05:23 Dose: 400 mg Gabapentin (Gabapentin 100 Mg Capsule) 200 mg PO TID [facility] Stop: 03/06/25 13:59 Gabapentin (Gabapentin 300 Mg Capsule) 300 mg PO DAILY [facility] Stop: 03/07/25 16:59 Heparin Sodium (Beef Lung) (Heparin Sod Lock Syr 100 Unit/Ml) 500 unit IV X1 ONE Stop: 02/06/25 14:31 Last Admin: 02/06/25 14:38 Dose: 500 unit Heparin Sodium (Porcine) (Heparin Sod Inj 1000 Unit/Ml Vial 10 Ml) 1,700 unit INDWELLCAT X1 ONE Stop: 01/29/25 17:02 Last Admin: 01/29/25 18:10 Dose: 1,700 unit Heparin Sodium (Porcine) (Heparin Sod Inj 5000 Unit/Ml Vial) 5,000 unit SC BID [facility] Stop: 02/12/25 20:59 Last Admin: 01/30/25 00:04 Dose: 5,000 unit Heparin Sodium (Porcine) (Heparin Sod Inj 1000 Unit/Ml Vial) 4,400 unit INDWELLCAT X1 ONE Stop: 02/06/25 15:21 Last Admin: 02/06/25 15:39 Dose: 4,400 unit Hydromorphone HCl (Hydromorphone Inj 2 Mg/Ml Vial) 0.25 mg IVP Q2H PRN PRN Reason: BREAKTHROUGH PAIN Stop: 02/03/25 17:41 Last Admin: 01/30/25 20:43 Dose: 0.25 mg Hydromorphone HCl (Hydromorphone Inj 2 Mg/Ml Vial) 0.25 mg IVP Q4H PRN PRN Reason: BREAKTHROUGH PAIN Stop: 02/03/25 17:41 Sodium Chloride (Ns) 1,000 mls @ 999 mls/hr IV .Q1H1M ONE Stop: 01/29/25 16:08 Last Infusion: 01/29/25 16:46 Dose: Infused Acetaminophen (Ofirmev Inj) 1,000 mg in 100 mls @ 250 mls/hr IV Q6HR JENS Stop: 01/30/25 06:23 Last Admin: 01/30/25 05:15 Dose: 250 mls/hr Vancomycin HCl (Vancomycin/Water 1gm Ivpb) 200 mls @ 120 mls/hr IV X1 ONE Stop: 01/29/25 17:47 Last Admin: 01/29/25 18:11 Dose: Not Given Vancomycin/Sodium Chloride (Vancomycin/Ns 1 Gm Ivpb) 200 mls @ 120 mls/hr IV X1 ONE Stop: 01/29/25 17:54 Last Admin: 01/29/25 20:02 Dose: Not Given Piperacillin/Tazobactam/Dextrose (Zosyn) 3.375 gm in 50 mls @ 100 mls/hr IV X1 ONE Stop: 01/29/25 17:42 Last Infusion: 01/29/25 19:00 Dose: Infused Magnesium Sulfate (Magnesium Sulfate Ivpb) 2 gm in 50 mls @ 25 mls/hr IV X1 ONE Stop: 01/29/25 19:15 Last Admin: 01/29/25 21:46 Dose: 25 mls/hr Vancomycin/Sodium Chloride (Vancomycin/Ns 1 Gm Ivpb) 200 mls @ 120 mls/hr IV X1 ONE Stop: 01/30/25 11:39 Last Admin: 01/30/25 10:48 Dose: 120 mls/hr Sodium Chloride (Ns) 250 mls @ 999 mls/hr IV .Q16M ONE Stop: 01/30/25 08:24 Last Admin: 01/30/25 08:10 Dose: 999 mls/hr Piperacillin Sod/Tazobactam (Sod 4.5 gm/ Sodium Chloride) 100 mls @ 200 mls/hr IV Q12HR JENS Stop: 02/06/25 08:09 Last Admin: 01/31/25 21:58 Dose: 200 mls/hr Sodium Chloride (Ns) 250 mls @ 999 mls/hr IV .Q16M ONE Stop: 01/30/25 08:59 Last Admin: 01/30/25 08:50 Dose: 999 mls/hr Lactated Ringer's (Lactated Ringers) 1,000 mls @ 999 mls/hr IV .Q1H1M ONE Stop: 01/30/25 11:47 Last Admin: 01/30/25 10:49 Dose: 999 mls/hr Ceftriaxone Sodium/Dextrose (Rocephin/D5w 2gm) 2 gm in 50 mls @ 100 mls/hr IV QDAY [facility] Stop: 02/08/25 08:59 Last Admin: 02/02/25 10:49 Dose: 100 mls/hr Azithromycin 500 mg/ Sodium (Chloride) 250 mls @ 250 mls/hr IV QDAY [facility] Stop: 02/09/25 09:43 Last Admin: 02/03/25 10:24 Dose: 250 mls/hr Piperacillin/Tazobactam/Dextrose (Zosyn) 3.375 gm in 50 mls @ 12.5 mls/hr IV Q12HR [facility] Stop: 02/09/25 20:59 Last Admin: 02/03/25 08:14 Dose: 12.5 mls/hr Piperacillin/Tazobactam/Dextrose (Zosyn) 3.375 gm in 50 mls @ 100 mls/hr IV X1 ONE Stop: 02/02/25 15:59 Last Admin: 02/02/25 15:55 Dose: 100 mls/hr Ceftriaxone Sodium/Dextrose (Rocephin/D5w 2gm) 2 gm in 50 mls @ 100 mls/hr IV Q24H [facility] Stop: 02/10/25 17:59 Last Admin: 02/05/25 17:09 Dose: 100 mls/hr Lidocaine HCl (Lidocaine Inj Pf 1% 30 Ml Vial) 10 ml INFL X1 ONE Stop: 02/06/25 14:31 Last Admin: 02/06/25 14:40 Dose: 10 ml Ondansetron HCl (Ondansetron Inj 2 Mg/Ml Inj 2 Ml) 4 mg IVP Q4HR PRN PRN Reason: NAUSEA OR VOMITING Stop: 02/28/25 14:44 Last Admin: 01/29/25 19:07 Dose: 4 mg Pharmacy Consult (Pharmacy To Consult Patient) 1 each XX QDAY PRN PRN Reason: CONSULT Stop: 02/28/25 17:59 Pharmacy Consult (Vancomycin Pharmacy To Dose 1 Each Each) 1 each IV QDAY PRN PRN Reason: CONSULT Stop: 03/01/25 08:59 Sevelamer Carbonate (Sevelamer Carbonate 800 Mg Tablet) 800 mg PO X1 ONE Stop: 01/30/25 07:34 Last Admin: 01/30/25 10:17 Dose: Not Given Sodium Bicarbonate (Sodium Bicarb Inj 8.4% 1 Meq/Ml 50 Ml Vial) 25 meq IV X1 ONE Stop: 01/29/25 20:27 Last Admin: 01/29/25 21:46 Dose: 25 meq Assessment & Plan Plan #Serratia bacteremia likely 2 #Infected RIJ HD catheter Patient on Iv antibiotics for bacteremia. Culture shows sensitivity to oral antibiotics. Switch to oral antibiotic fluoroquinolone 250mg daily to complete 10 day course from first negative blood culture. #Coccidiomycosis #Acute diarrhea #Pancytopenia #Neutropenia #Thrombocytopenia #ESRD on HD via RIJ PermCath T//S #Acute encephalopathy #Ground-level falls #Troponinemia #History of Prostate cancer s/p radical prostatectomy with bone mets on hormonal therapy #Primary hypertension Continue management per primary team. Case discussed with attending Dr. Juarez. Tyler Vazquez MD PGY3
--- NOTE | 2025-02-06 17:22 | ESPR_ITS ---
<Statement entered by Deborah Darnell MD - 02/07/25 07:59> I agree with plan and examination findings on this note , I have personally seen and examined patient. Labs and imaging reviewed. Deborah Darnell PGY3 Documentation for date of: 02/06/25 Subjective Subjective Interval history: No acute overnight events reported. Patient seen and examined at bedside this morning. Patient underwent HD catheter placement in the right common femoral vein due to unsuccessful and attempt in the IJ due to extensive scarring on both sides right and left. Patient does not have any complaints states that he is feeling well blood pressure is stable saturating percent on room air. Labs are reviewed, patient will undergo dialysis tomorrow a.m. and then anticipate discharge. Although patient's IgM cocci were positive during this admission UCD was send out titers were undetectable therefore patient will not need to continue fluconazole. As per infectious disease specialist's recommendations patient will continue antibiotics for 10 days from the first negative blood culture. Patient's antibiotic were changed to Levaquin for the remainder of 4 days until February 11. Exam Vital Signs Temp Pulse Resp BP Pulse Ox O2 Del Method O2 Flow Rate 97.0 F 94 12 137/89 H 92 L Room Air 2 02/06/25 16:00 02/06/25 16:02/06/25 16:02/06/25 16:02/06/25 16:02/06/25 16:02/06/25 15:12 Narrative Exam GENERAL: elderly male, awake calm and cooperative, not in acute distress NEURO: no focal neurological deficits noted HEENT: Atraumatic, Normocephalic. mucous membranes moist. Eyes open, symmetrical, & clear, RIJ cath removed-area is clean HEART: Normal Heart Sounds LUNGS: Clear to auscultation with no wheezing or crackles. ABDOMEN: soft, non-distended, non-tender, bowel sounds heard, no guarding or rebound tenderness SKIN: No Rash or ecchymoses EXTREMITIES: No edema, tenderness, able to move all 4 extremities, pedal pulses palpated , HD cath in right femoral vein Objective Labs 02/07/25 05:16 02/07/25 05:16 Labs: Laboratory Results - last 24 hr 02/06/25 02/06/25 04:20 09:25 WBC 4.3 RBC 3.00 L Hgb 9.3 L Hct 28.0 L MCV 93 MCH 31.0 MCHC 33.2 RDW Std Deviation 56.9 H Plt Count 71 L Neut % (Auto) 74 Lymph % (Auto) 8 L Drew % (Auto) 12 Eos % (Auto) 4 Baso % (Auto) 0 Neut # (Auto) 3.2 Lymph # (Auto) 0.4 L Drew # (Auto) 0.5 Eos # (Auto) 0.2 Baso # (Auto) 0.0 Immature Gran # (Auto) 0.07 H Absolute Nucleated RBC 0.00 Immature Gran % 2 H Nucleated RBC % 0 PT 11.7 INR 1.1 APTT 29.6 Sodium 138 Potassium 4.0 Chloride 94 L Carbon Dioxide 28.5 Anion Gap 16 BUN 53 H Creatinine 7.3 H* D Estim Creat Clear Calc 9.1 L eGFR 7 L* BUN/Creatinine Ratio 7 L Glucose 90 Calculated Osmolality 290 Calcium 8.3 Corrected Calcium 8.9 Phosphorus 5.1 Magnesium 2.1 Total Bilirubin 0.2 L AST 31 ALT 14 Alkaline Phosphatase 151 H Total Protein 6.1 Albumin 3.2 L Globulin 2.9 Albumin/Globulin Ratio 1.1 L Misc Test Result Platelets confirmed ABG Interpretation ABG results: 01/29/25 01/30/25 17:25 11:00 ABG pH 7.30 L ABG pCO2 31 L ABG pO2 91 ABG HCO3 15 L ABG O2 Saturation 97 ABG Base Excess -10 L VBG pH 7.20 L VBG pCO2 46 VBG pO2 32 VBG Base Excess -10 L Quality Measures Quality Measures VTE prophylaxis (SCDs) Advance care planning discussed with:: patient Assessment & Plan Assessment Current Active Medications: Generic Name Dose Route Start Last Admin Trade Name Freq PRN Reason Stop Dose Admin Acetaminophen 650 mg 01/29/25 17:42 02/03/25 17:52 Acetaminophen 325 Mg Tablet PO 02/28/25 17:41 650 mg Q6H PRN Administration Fever >100.3 or pain 1-3 Albuterol/Ipratropium 3 ml 01/29/25 17:42 01/30/25 17:18 Albuterol/Ipratropium (Duoneb) Rt Karolina 3 Ml Nebu INH 02/28/25 17:41 3 ml Q4HR PRN Administration SHORTNESS OF BREATH OR WHEEZE Aspirin 81 mg 01/30/25 09:00 02/06/25 10:23 Aspirin Ec 81 Mg Tabec PO 03/01/25 08:59 Not Given QDAY JENS Atorvastatin Calcium 40 mg 01/29/25 21:00 02/05/25 21:30 Atorvastatin Calcium 20 Mg Tablet PO 02/28/25 20:59 40 mg HS JENS Administration Bismuth Subsalicylate 2 tab 02/07/25 09:00 Bismuth Subsalicyl 1 Tablet (Pepto-Bismol) PO 03/09/25 08:59 QDAY JENS Citric Acid/Sodium Citrate 30 ml 01/30/25 09:00 02/06/25 10:23 Citric Acid/Sodium Citr 15 Ml Udc (Bicitra) PO 03/01/25 08:59 Not Given BID JENS Gabapentin 400 mg 02/05/25 06:00 02/06/25 16:20 Gabapentin 100 Mg Capsule PO 03/07/25 05:59 Not Given TID JENS Heparin Sodium (Porcine) 3,300 unit 01/30/25 15:12 02/01/25 09:27 Heparin Sod Inj 1000 Unit/Ml Vial 10 Ml INDWELLCAT 02/13/25 15:11 3,300 unit X1 PRN Administration DIALYSIS Albumin Human 25 gm in 100 mls @ 100 mls/hr 01/30/25 11:00 01/31/25 08:06 Albuminar-25 Ivpb IV 100 mls/hr PRN PRN Administration DIALYSIS Levofloxacin 250 mg 02/07/25 09:00 Levofloxacin 250 Mg Tablet PO 02/11/25 12:00 QDAY [facility] Sevelamer Carbonate 800 mg 01/30/25 08:00 02/06/25 13:13 Sevelamer Carbonate 800 Mg Tablet PO 03/01/25 07:59 Not Given TIDWM [facility] Vitamin B Complex/Vit C/Folic Acid 1 tab 01/30/25 09:00 02/06/25 10:23 Vit B12/Vit C/Fa (Nephrovite) Tablet PO 03/01/25 08:59 Not Given QDAY [facility] Plan Mr. Gill is a 69-year-old male with a past medical history significant for primary hypertension, ESRD on HD via [facility] PermCat T//S follows with Dr. Sandoval and prostate cancer s/p radical prostatectomy [2014] with bone mets currently on hormonal therapy [Xtandi] follows at [facility] in [place] presenting with a chief complaint of confusion and falls. Patient will be admitted for workup and management of likely sepsis secondary to infected RIJ catheter. 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 Repeat BC negative at 48 hrs - UC no growth - Tyelenol ordered PRN for fever - Levaquin 02/06- 02/11 - Rocephin ordered 02/03- 02/06 ? Zosyn 4.5 g IV twice daily on [01/30?02/02) ? Azithromycin 500 mg IV (02/02) ? Pt received fluconazole 400 Mg p.o. daily for 1 year previously, During this admission IgM cocci is positive however UCD titers are undetectable therefore will discontinue fluconazole ? ID consult, appreciate recommendations ? Antipyretics - Removed RIJ HD cath 02/04 -HD cath placed in the right femoral vein on 02/06 #Acute diarrhea, improved Patient had numerous episodes of watery diarrhea since yesterday. C. difficile negative DDx: Viral gastroenteritis, medication side effect, parasitic infection Plan: ? F/u stool culture, stool WBC (negative), ova/cyst/parasites, calprotectin and Giardia ordered - C. diff negative #Pancytopenia #Neutropenia #Thrombocytopenia Hb 10.4, WBC 1.6, PLT 23 ANC 1.129 Patient has no signs of active bleeding. No spontaneous petechiae, purpura noted on skin exam, also no signs of blood in the stool. Patient no longer produces urine as he is on hemodialysis Plan: ? Reverse isolation precautions ? Bleeding precautions ? Monitor for signs and symptoms of bleeding ? Peripheral blood smear ordered ? Project Controller, Dr. Burt consulted. Appreciate recommendations #ESRD on HD via RIJ PermCath T// Follows up with Dr. Sandoval. Plan: ? Renally dose medications ? Avoid nephrotoxic agents ? Nephrology, Dr. Gotti consulted and closely following the case. Appreciate recommendations - RIJ PermCath removed 02/04 for holiday, will replace on Tuesday #Acute encephalopathy, likely metabolic?resolved #Ground-level falls DDx: Sepsis, TIA, CVA, medication side effect Patient presented with confusion which is now resolving but no localizing deficits. CT brain and CTA were both negative for any acute findings NIHSS +0 Plan: - Continue ASA - Neurology Consulted, Appreciated recs - Neuro Checks q4h - Continue high intensity statin #Troponinemia?resolved DDx: ESRD, sepsis, NSTEMI Troponin increased from 0.102 to 0.11 Plan: ? No need to further trend. #History of Prostate cancer s/p radical prostatectomy with bone mets on hormonal therapy On Xtandi as outpatient. Follows [facility] in [place] Plan: ? Continue outpatient follow-up #Primary hypertension ? Antihypertensives on hold due to sepsis and low blood pressure #Health Maintenance Disposition: Telemetry DVT prophylaxis: Heparin GI prophylaxis: None indicated at this time Diet: Renal, 1500 cc fluid restriction CODE STATUS: Full Assessment and plan discussed with my senior resident Dr. Darnell & attending physician Dr. Fortunato Zamudio (PGY-1)- Internal medicine resident Attending Provider Attestation/Addendum I attest that I was physically present for the evaluation, physical examination, lab and imaging review of the patient with the residents. I discussed the case with the residents and agree with the findings and plans of care as documented above. At bedside today, patient states she is feeling well and does not have any complaints. Patient underwent hemodialysis catheter placement today, attempt was made to insert IJ catheter but unsuccessful. Patient received right common femoral vein catheter. [facility] send out results for coccidioidomycosis were negative, we will not continue with fluconazole. Infectious disease following closely for severity of bacteremia, recommended switching the antibiotics to Levaquin to complete total 10 days. Patient is planned for hip. If remains stable after hemodialysis tomorrow, we will plan for discharge. Jac Bucio MD
[2025-02-06] MEDS: SEVELAMER CARBONATE 800 MG TABLET PO (17:30)
--- NOTE | 2025-02-06 18:17 | ESPR_ITS ---
Documentation for date of: 02/06/25 Subjective Subjective Interval history: 69-year-old male with a past medical history significant for primary hypertension, ESRD on HD via RIJ PermCath T// prostate cancer s/p radical prostatectomy [2014] with bone mets currently on hormonal therapy [Xtandi] follows at [facility] in [place] presenting with a chief complaint of confusion and falls. Nephrology is called to arrange HD. pt had removed dialysis catheter on 02/04 and replaced on 02/06. Exam Vital Signs Temp Pulse Resp BP Pulse Ox O2 Del Method O2 Flow Rate 97.0 F 70 12 137/89 H 92 L Room Air 2 02/06/25 16:00 02/06/25 17:00 02/06/25 16:00 02/06/25 16:00 02/06/25 16:00 02/06/25 16:00 02/06/25 15:12 Objective Labs 02/06/25 04:20 02/06/25 04:20 Labs: Laboratory Results - last 24 hr 02/06/25 02/06/25 04:20 09:25 WBC 4.3 RBC 3.00 L Hgb 9.3 L Hct 28.0 L MCV 93 MCH 31.0 MCHC 33.2 RDW Std Deviation 56.9 H Plt Count 71 L Neut % (Auto) 74 Lymph % (Auto) 8 L Morrison % (Auto) 12 Eos % (Auto) 4 Baso % (Auto) 0 Neut # (Auto) 3.2 Lymph # (Auto) 0.4 L Morrison # (Auto) 0.5 Eos # (Auto) 0.2 Baso # (Auto) 0.0 Immature Gran # (Auto) 0.07 H Absolute Nucleated RBC 0.00 Immature Gran % 2 H Nucleated RBC % 0 PT 11.7 INR 1.1 APTT 29.6 Sodium 138 Potassium 4.0 Chloride 94 L Carbon Dioxide 28.5 Anion Gap 16 BUN 53 H Creatinine 7.3 H* D Estim Creat Clear Calc 9.1 L eGFR 7 L* BUN/Creatinine Ratio 7 L Glucose 90 Calculated Osmolality 290 Calcium 8.3 Corrected Calcium 8.9 Phosphorus 5.1 Magnesium 2.1 Total Bilirubin 0.2 L AST 31 ALT 14 Alkaline Phosphatase 151 H Total Protein 6.1 Albumin 3.2 L Globulin 2.9 Albumin/Globulin Ratio 1.1 L Misc Test Result Platelets confirmed ABG Interpretation ABG results: 01/29/25 01/30/25 17:25 11:00 ABG pH 7.30 L ABG pCO2 31 L ABG pO2 91 ABG HCO3 15 L ABG O2 Saturation 97 ABG Base Excess -10 L VBG pH 7.20 L VBG pCO2 46 VBG pO2 32 VBG Base Excess -10 L Assessment & Plan Assessment and plan (1) Altered mental status: Status: Resolved (2) ESRD (end stage renal disease) on dialysis: Status: Chronic Assessment and plan: Pt had line holiday, had replaced TDC today will do HD tomorrow discussed with bedside RN (3) Sepsis: Status: Acute
--- NOTE | 2025-02-06 18:36 | ESCONSULT_ITS ---
RE: BART RANDHAWA : 1955 DATE OF CONSULTATION: 02/06/2025 REFERRING PHYSICIAN: Dr. Mclaughlin. REASON FOR CONSULTATION: Bacteremia. HISTORY OF PRESENT ILLNESS: The patient is an unfortunate 69-year-old man, who has been on dialysis for almost a year according to his daughter. He is a poor historian and is very hard of hearing, but he appears to be on dialysis due to obstruction from blood clots related to his prostate cancer. He had been falling a lot. He has chronic kidney disease and hypertension according to records and meds. His daughter is a pleasant lady, but not a great historian. She does not recall any hypertension. He also appears to have movement disorder, which his daughter states has been present since he initiated dialysis. Surgeries include dialysis access procedures including removal on 02/04/2025 and replacement on 02/06/2025. ALLERGIES: NONE NOTED. IMMUNIZATIONS: Last tetanus is not known. He does not take it. He does take flu shot every year. He has had no COVID vaccine or pneumonia vaccine. FAMILY HISTORY: Unremarkable. SOCIAL HISTORY: He lives with his son and his . He was born in the [facility]. PHYSICAL EXAMINATION: The patient is hard of hearing and has movement disorder that seems to be mostly at rest. When he crossed his arms over his abdomen, he has no movement issues. He otherwise has random movements of the arms and they are not ballistic appearing but is something to keep in mind. He is listed as being a full code, but may need to be readdressed if Dr. Sandoval has more insight into his medical problems. Typically, we could treat through gnr bacteremia and many gpc's too. He does not appear to have relapsed. His organism has been sensitive to quinolone, so we will switch him to a po quinolone at this time. He has a new line in his femoral area that may need to be replaced in his chest at a later time. There is no johnson to that at this time. He may go home on oral quinolone as early as tomorrow. I will put in for some other labs for tomorrow morning. DT: 16:02:12 TT: 17:20:00 Ref: [id number] - TID: [id number] [facility]
[2025-02-06] MEDS: CITRIC ACID/SODIUM CITR 15 ML UDC (BICITRA) 30 ML PO (21:50)
[2025-02-06] MEDS: GABAPENTIN 100 MG CAPSULE 400 MG PO (21:50)
[2025-02-06] MEDS: ATORVASTATIN CALCIUM 20 MG TABLET 40 MG PO (21:50)
--- NOTE | 2025-02-06 23:33 | ESPR_ITS ---
Documentation for date of: 02/06/25 Subjective Subjective Interval history: Patient was seen in [facility] today, no new symptoms reported. Exam - Neurology Vital Signs Temp Pulse Resp BP Pulse Ox O2 Del Method O2 Flow Rate 96.8 F 87 22 H 135/81 H 97 Nasal Cannula 1 02/06/25 20:00 02/06/25 21:15 02/06/25 21:15 02/06/25 20:00 02/06/25 21:15 02/06/25 20:00 02/06/25 21:15 Narrative Exam Gen: Chronically ill-appearing male in NAD. HEENT: NCAT, PERRLA, EOMI, MMM, anicteric conjunctivae. CVS: normal S1 and S2. RRR. No M/R/G. Resp: CTA B/L. No rhonchi, rales, crackles or wheezing. Abd: soft, non-tender, non-distended. BS+ in all 4 quadrants. MSK: Good ROM in BUE & BLE. No edema or rash. Neuro: Bilateral hearing loss. Strength 5/5 in BUE & BLE. Resting at present Psych: appropriate mood and affect Objective Labs 02/06/25 04:20 02/06/25 04:20 Labs: Laboratory Results - last 24 hr 02/06/25 02/06/25 04:20 09:25 WBC 4.3 RBC 3.00 L Hgb 9.3 L Hct 28.0 L MCV 93 MCH 31.0 MCHC 33.2 RDW Std Deviation 56.9 H Plt Count 71 L Neut % (Auto) 74 Lymph % (Auto) 8 L [place] % (Auto) 12 Eos % (Auto) 4 Baso % (Auto) 0 Neut # (Auto) 3.2 Lymph # (Auto) 0.4 L [place] # (Auto) 0.5 Eos # (Auto) 0.2 Baso # (Auto) 0.0 Immature Gran # (Auto) 0.07 H Absolute Nucleated RBC 0.00 Immature Gran % 2 H Nucleated RBC % 0 PT 11.7 INR 1.1 APTT 29.6 Sodium 138 Potassium 4.0 Chloride 94 L Carbon Dioxide 28.5 Anion Gap 16 BUN 53 H Creatinine 7.3 H* D Estim Creat Clear Calc 9.1 L eGFR 7 L* BUN/Creatinine Ratio 7 L Glucose 90 Calculated Osmolality 290 Calcium 8.3 Corrected Calcium 8.9 Phosphorus 5.1 Magnesium 2.1 Total Bilirubin 0.2 L AST 31 ALT 14 Alkaline Phosphatase 151 H Total Protein 6.1 Albumin 3.2 L Globulin 2.9 Albumin/Globulin Ratio 1.1 L Misc Test Result Platelets confirmed ABG Interpretation ABG results: 01/29/25 01/30/25 17:25 11:00 ABG pH 7.30 L ABG pCO2 31 L ABG pO2 91 ABG HCO3 15 L ABG O2 Saturation 97 ABG Base Excess -10 L VBG pH 7.20 L VBG pCO2 46 VBG pO2 32 VBG Base Excess -10 L Assessment & Plan Assessment and plan (1) Altered mental status: Status: Resolved (2) ESRD (end stage renal disease) on dialysis: Status: Chronic (3) Sepsis: Status: Acute Additional Assessment & Plan Additional Plan: The patient is a 69-year-old male with a past medical history of hypertension, end-stage renal disease on dialysis //Tue following with Dr. Sandoval, prostate cancer status post prostatectomy with bone metastasis on Xtandi who was brought in due to altered mental status and falls. #Acute encephalopathy, resolved #Ground level falls Most likely in the setting of sepsis. CT head was negative for acute intracranial pathology. Plan: - continue with antibiotics - continue with dialysis as scheduled - blood pressure control - Continue aspirin 81 mg qday #Likely sepsis secondary to infected RIJ catheter # Tremors: Continue GP 400 mg tid #ESRD on HD via RIJ PermCath T// #Troponinemia #History of Prostate cancer s/p radical prostatectomy with bone mets on hormonal therapy #Primary hypertension - management per primary team
[2025-02-07] VITALS (21 sets, daily range): BP systolic 100–152; BP diastolic 67–91; PULSE 84–97; RESP 15–20; TEMP 36–37.2; O2SAT 92–98; BMI 25.0
[2025-02-07] MEDS: GABAPENTIN 100 MG CAPSULE 400 MG PO (05:36)
[2025-02-07 06:53] LABS: Hepatitis C Antibody Non Reactive (Non React)
[2025-02-07] MEDS: EPOETIN ALFA-EPBX INJ 10,000 UNIT/ML VIAL (NON-ESRD) 10000 UNIT IV (08:37)
[2025-02-07 08:38] LABS: Basophils % (Auto) 0 % (0-2.5); Eosinophils # (Auto) 0.2 Thou/mm3 (0.0-0.5); Eosinophils % (Auto) 4 % (0-10); Hematocrit 27.4 % (41.0-53.0); Hemoglobin 9.2 g/dL (13.5-16.0); Immature Granulocytes % (Auto) 1 % (0-0); Immature Granulocytes Auto 0.06 Thou/mm3 (0.00-0.00); Lymphocytes # (Auto) 0.3 Thou/mm3 (1.0-4.8); Lymphocytes % (Auto) 8 % (10-50); Mean Corpuscular HGB Conc 33.6 g/dl (31.0-37.0); Mean Corpuscular Hemoglobin 30.8 pg (25.0-35.0); Mean Corpuscular Volume 92 fL (80-100); Monocytes # (Auto) 0.5 Thou/mm3 (0.0-0.8); Monocytes % (Auto) 12 % (0-12); Neutrophils # (Auto) 3.2 Thou/mm3 (1.8-7.7); Neutrophils % (Auto) 75 % (37-80); Nucleated Red Blood Cell % 0 /100 WBC (0); Platelet Count 85 Thou/mm3 (140-440); RDW Standard Deviation 55.3 fL (35.1-43.9); Red Blood Count 2.99 Miln/mm3 (4.50-5.90); White Blood Count 4.2 Thou/mm3 (3.8-10.6)
[2025-02-07 08:42] LABS: Alanine Aminotransferase 15 U/L (10-49); Albumin/Globulin Ratio 1.2 (1.2-2.2); Alkaline Phosphatase 168 U/L (46-116); Anion Gap 16 (7-16); Aspartate Amino Transferase 28 U/L (0-34); BUN/Creatinine Ratio 8 Ratio (12-20); Bilirubin,Total 0.2 mg/dL (0.3-1.2); Blood Urea Nitrogen 68 mg/dL (9-23); Calcium 7.9 mg/dL (8.3-10.6); Calcium (Corrected) 8.7 mg/dL (8.5-10.1); Carbon Dioxide 27.4 mMol/L (20.0-31.0); Chloride 94 mMol/L (98-107); Creatinine (Component) 8.6 mg/dL (0.6-1.3); Estimated Creatinine Clearance 7.7 mL/min (>60); Globulin 2.6 gm/dL (2.3-3.5); Glucose 78 mg/dL (74-106); Osmolality,Calculated 292 (275-295); Potassium 4.4 mMol/L (3.4-5.1); Sodium 137 mMol/L (136-145); Total Protein 5.6 gm/dL (5.7-8.2); eGFR 6 See Note
[2025-02-07] MEDS: ASPIRIN EC 81 MG TABEC PO (11:27)
[2025-02-07] MEDS: SEVELAMER CARBONATE 800 MG TABLET PO (11:28)
[2025-02-07] MEDS: LEVOFLOXACIN 250 MG TABLET PO (11:28)
[2025-02-07] MEDS: BISMUTH SUBSALICYL 1 TABLET (Pepto-Bismol) 2 TAB PO (11:28)
[2025-02-07] MEDS: VIT B12/Vit C/FA (Nephrovite) TABLET 1 TAB PO (11:28)
--- NOTE | 2025-02-07 11:30 | PC.SS ---
SS met with dtr in patient's room to confirm dc to home and she will provide transportation.
--- NOTE | 2025-02-07 13:35 | PC.CC ---
HH referral sent on [facility]. Awaiting responses. Pending start of care date.
--- NOTE | 2025-02-07 19:50 | ESDS_ITS ---
Planned Discharge Date 02/07/25 DS: Providers Provider Date of admission: 01/29/25 17:42 Primary care physician: Andre Chow PA-C Admitting Provider: Gen Mclaughlin MD Attending Provider on Admission: Jac Bucio MD Consults: 01/29/25 14:45 Consult to Neurology / Tele-Neurology Routine Comment: Consulting Provider: [facility] 01/29/25 17:47 Consult to Neurology / Tele-Neurology Routine Comment: Consulting Provider: Connor Hamilton 01/29/25 17:48 Consult to Nephrology Routine Comment: Missed Dialysis. Possible Line sepsis Consulting Provider: Ervin Sandoval Referral Physical Therapy Routine Comment: Physician Instructions: Instructions: Falls. 01/30/25 01:58 Referral Infection Control Routine Comment: Reason for Infection Control Referral: Current Dialysis Patient 01/30/25 10:48 Consult to Forestry Consultant Routine Comment: Possible septic shock Consulting Provider: Kiley Mcfarland 01/31/25 14:20 Consult to Hematology Routine Comment: Nuetropenia. ANC 1.19 Consulting Provider: Sheridan Burt 02/06/25 08:28 Consult to Infectious Diseases Routine Comment: Consulting Provider: Alok Juarez Attending Provider on DC: Melanie Zamudio MD Discharging Provider: Melanie Zamudio MD DS: Diagnosis Problem List Completed Was Problem List Reviewed/Reconciled?: Yes Hospital Course Hospital Course Hospital course: Mr. Hermosillo is a 69 year old male with a past medical history significant for primary hypertension, ESRD on HD via RIJ PermCath T// follows with Dr. Sandoval and prostate cancer s/p radical prostatectomy [2013] with bone mets currently on hormonal therapy [Xtandi] follows at [facility] in [place] presented to [facility] [place] ED on 01/29/2025 with a chief complaint of confusion and falls. Patient is admitted to the hospital for sepsis secondary to infected RIJ catheter. Upon further investigation Sepsis due to [GNR bacteremia] with acute sepsis-related organ dysfunction as evidence by [hypotension and troponinemia]. Patient was also found to be cocci positive. Blood culture grew Serratia marcescens, patient was started on IV antibiotics. Since patient had received extended treatment of 1 ER with fluconazole for cocci the titers from [facility] during this admission were below detection therefore discontinued fluconazole. During hospitalization patient continued to receive hemodialysis as per his regular schedule. Patient's hospitalization was extended due to current fevers therefore decision was made to consult infectious disease specialist Dr Juarez and remove HD catheter. Patient was given a 48-hour HD catheter holiday and a new catheter was placed in the right femoral vein due to extensive scarring bilaterally in the right and left IJ. Patient remained afebrile after the catheter was removed, repeat blood cultures were negative and hemodynamically is significantly improved and back to his baseline. Patient is stable to be discharged home with home health to continue additional 4 days of antibiotics to complete the course. Patient is advised to follow-up outpatient with his director market intelligence. Discharge Recommendations ? We have stopped your blood pressure medications HCTZ and losartan since your blood pressure has been low while in hospital. ? We have started you on an antibiotic for the infection in your blood. Please complete the course for additional 4 days ? Continue the rest of your home medication as directed ? Because your white blood count is very low, please ensure that you wear a mask when around other people to prevent getting any infections. Also ensure that other people wear a mask while around you to keep you safe. ? If your diarrhea worsens or persists, see your primary care doctor. Most likely this diarrhea is from the antibiotics ? We recommend you get tested for hearing aids. ? Continue following up with your actuary manager at [facility] for your low white count and your enlarged liver and spleen. ? Continue following up with your urologist at [facility] for your bladder incontinence. ? Follow-up with your director market intelligence, Dr. Sandoval within 1 week of discharge. - Follow up with your primary care physician within 1 week of discharge. If you do not have a primary care physician, please follow up with the [facility] Residents clinic ([phone]) ? If you experience any new, worsening or persistent symptoms either call your primary doctor, or dial 911 or present to the emergency department. Hospitalization Diagnosis #Serratia bacteremia likely 2/2 #Infected RIJ HD catheter #Coccidiomycosis #Acute diarrhea, improved #Pancytopenia #Neutropenia #Thrombocytopenia #ESRD on HD via RIJ PermCath T//S #Acute encephalopathy, likely metabolic?resolved #Ground-level falls #Troponinemia?resolved #History of Prostate cancer s/p radical prostatectomy with bone mets on hormonal therapy #Primary hypertension Assessment and plan discussed with my attending physician Dr. Fortunato Zamudio (PGY-1)- Internal medicine resident Time Spent with Patient Time attestation: Total time spent providing and/or coordinating discharge services: Time spent: Greater than 30 minutes Exam Vital Signs Temp Pulse Resp BP Pulse Ox O2 Del Method O2 Flow Rate 98.9 F 88 15 124/84 96 Nasal Cannula 1 02/07/25 12:02/07/25 12:02/07/25 12:02/07/25 12:02/07/25 12:02/07/25 12:02/07/25 12:00 Narrative Exam GENERAL: elderly male, awake calm and cooperative, not in acute distress NEURO: no focal neurological deficits noted HEENT: Atraumatic, Normocephalic. mucous membranes moist. Eyes open, symmetrical, & clear, RIJ cath removed-area is clean HEART: Normal Heart Sounds LUNGS: Clear to auscultation with no wheezing or crackles. ABDOMEN: soft, non-distended, non-tender, bowel sounds heard, no guarding or rebound tenderness SKIN: No Rash or ecchymoses EXTREMITIES: No edema, tenderness, able to move all 4 extremities, pedal pulses palpated , HD cath in right femoral vein Discharge Plan Plan Patient Disposition: Home w/HOME HEALTH Patient condition on transfer: Stable and Benefits outweigh risks Care Plan Goals: ? We have stopped your blood pressure medications HCTZ and losartan since your blood pressure has been low while in hospital. ? We have started you on an antibiotic for the infection in your blood. Please complete the course for additional 4 days ? Continue the rest of your home medication as directed ? Because your white blood count is very low, please ensure that you wear a mask when around other people to prevent getting any infections. Also ensure that ot her people wear a mask while around you to keep you safe. ? If your diarrhea worsens or persists, see your primary care doctor. Most likely this diarrhea is from the antibiotics ? We recommend you get tested for hearing aids. ? Continue following up with your actuary manager at [facility] for your low white count and your enlarged liver and spleen. ? Continue following up with your urologist at [facility] for your bladder incontinence. ? Follow-up with your director market intelligence, Dr. Sandoval within 1 week of discharge. - Follow up with your primary care physician within 1 week of discharge. If you do not have a primary care physician, please follow up with the [facility] Residents clinic ([phone]) ? If you experience any new, worsening or persistent symptoms either call your primary doctor, or dial 911 or present to the emergency department. Prescriptions/Referrals Prescriptions/Med Rec: New atorvastatin 20 mg Tablet 40 mg PO HS 30 Days Qty: 60 0RF gabapentin 400 mg Capsule 400 mg PO TID 30 Days Qty: 90 0RF aspirin [Ecotrin Low Strength] 81 mg Tablet,Delayed Release (Dr/Ec) 81 mg PO QDAY 30 Days Qty: 30 0RF Nephro-Tristan 0.8 mg Tablet 1 tab PO QDAY 30 Days Qty: 30 0RF sevelamer carbonate 800 mg Tablet 800 mg PO TIDWM 30 Days Qty: 90 0RF levofloxacin 250 mg Tablet 250 mg PO QDAY 4 Days Qty: 4 0RF Discontinued losartan 100 mg tablet 100 mg PO QDAY hydrochlorothiazide 25 mg tablet 25 mg PO QDAY Referrals: Sheridan Burt MD [Physician] - Michele Sandoval MD [Physician] - Andre Chow PA-C [Primary Care Provider] - Patient/Caregiver Discharge Instructions Meds to Beds: No Discharge Activity: walk with walker only, as per physical therapy, activity as tolerated, wear oxygen at all times and wear oxygen at night Other Discharge Activity Instructions:: ? We have stopped your blood pressure medications HCTZ and losartan since your blood pressure has been low while in hospital. ? We have started you on an antibiotic for the infection in your blood. Please complete the course for additional 4 days ? Continue the rest of your home medication as directed ? Because your white blood count is very low, please ensure that you wear a mask when around other people to prevent getting any infections. Also ensure that other people wear a mask while around you to keep you safe. ? If your diarrhea worsens or persists, see your primary care doctor. Most likely this diarrhea is from the antibiotics ? We recommend you get tested for hearing aids. ? Continue following up with your actuary manager at [facility] for your low white count and your enlarged liver and spleen. ? Continue following up with your urologist at [facility] for your bladder incontinence. ? Follow-up with your director market intelligence, Dr. Sandoval within 1 week of discharge. - Follow up with your primary care physician within 1 week of discharge. If you do not have a primary care physician, please follow up with the [facility] Residents clinic ([phone]) ? If you experience any new, worsening or persistent symptoms either call your primary doctor, or dial 911 or present to the emergency department. Education Materials: Neutropenia, Sepsis, Prostate Cancer Tx Coping, ED Bacteremia, Suspected (Adult) Print Language: Turkmen Stand Alone Forms: Dolores Award Info., Patient Portal Info Letter Discharge Order Discharge Orders: Discharge (Routine); Ordered 02/07/25 Ordered By: Melanie Zamudio Quality Discharge Quality Measures VTE prophylaxis Attestestation MD Attestation I attest that I was physically present for the evaluation, physical examination, lab and imaging review of the patient with the residents. I discussed the case with the residents and agree with the findings and plans of care as documented above. Jac Bucio MD
--- NOTE | 2025-02-10 07:28 | PC.CM ---
July confirmed soc 02/10/25
[2025-02-11 06:40] LABS: Calprotectin, Stool* 16 mcg/g
[2025-02-11 06:41] LABS: Giardia Result NOT DETECTED
== END 2025-02-07 12:35 | disposition home health service (06) | DRG 280 ==
LOC: SERX 16:22 → SERHOLD 17:54 → S2NX 01-30 01:02 → S3SX 02-02 06:17
PROVIDERS: Internal Medicine; Internal Medicine Infectious Disease; Radiology Diagnostic Radiology; Student in an Organized Health Care Education/Training Program; Admitting Provider Student in an Organized Health Care Education/Training Program; Emergency Provider Emergency Medicine; PCP Physician Assistant; Visit Provider Student in an Organized Health Care Education/Training Program
DX: T80.211A Bloodstream infection due to central venous catheter, initial encounter (principal); A41.53 Sepsis due to Serratia; I21.A1 Myocardial infarction type 2; G93.41 Metabolic encephalopathy; N18.6 End stage renal disease; R65.20 Severe sepsis without septic shock; C79.51 Secondary malignant neoplasm of bone; I12.0 Hypertensive chronic kidney disease with stage 5 chronic kidney disease or end stage renal disease; R57.9 Shock, unspecified; B38.9 Coccidioidomycosis, unspecified; D61.818 Other pancytopenia; G25.9 Extrapyramidal and movement disorder, unspecified; Y83.8 Other surgical procedures as the cause of abnormal reaction of the patient, or of later complication, without mention of misadventure at the time of the procedure; Z99.2 Dependence on renal dialysis; R29.6 Repeated falls; W18.30XA Fall on same level, unspecified, initial encounter; M25.511 Pain in right shoulder; R79.89 Other specified abnormal findings of blood chemistry; C61 Malignant neoplasm of prostate; E78.5 Hyperlipidemia, unspecified; Z90.79 Acquired absence of other genital organ(s); Z78.9 Other specified health status; Z79.82 Long term (current) use of aspirin; Z79.890 Hormone replacement therapy; Z79.899 Other long term (current) drug therapy; R19.7 Diarrhea, unspecified; Z87.440 Personal history of urinary (tract) infections
CPT/HCPCS: 36415; 36600; 70450; 70496; 70498; 71045; 71260; 74177; 76937; 77001; 80053; 80061; 80074; 80202; 80307; 80320; 81001; 82803; 83036; 83605; 83735; 83880; 83993; 84100; 84145; 84443; 84484; 85025; 85610; 85730; 86635; 86703; 86706; 86803; 87015; 87040; 87045; 87046; 87070; 87077; 87081; 87086; 87177; 87186; 87205; 87209; 87329; 87400; 87493; 87811; 87899; 93005; 93306; 94640; 94664; 96361; 96365; 96372; 96375; 97162; 99291; A4649; A9270; C1750; C1894; J0131; J0456; J0696; J1171; J1642; J1643; J1644; J2405; J2543; J3010; J3370; J3475; J3490; J7030; J7050; J7120; P9047; Q5105; Q5106; Q9967; G0480

== ENCOUNTER → 2025-04-05 | Outpatient (CLI) | payer OTHER, MEDICARE, SELFPAY ==
[2025-04-05 11:33] LABS: INR 1.0 (0.9-1.3); Partial Thromboplastin Time 27.3 Seconds (22.0-36.0); Prothrombin Time 11.0 Seconds (9.0-12.2)
[2025-04-05 11:58] LABS: Alanine Aminotransferase 19 U/L (10-49); Albumin, Serum 3.7 gm/dL (3.4-4.8); Albumin/Globulin Ratio 1.2 (1.2-2.2); Alkaline Phosphatase 67 U/L (46-116); Anion Gap 11 (7-16); Aspartate Amino Transferase 20 U/L (0-34); BUN/Creatinine Ratio 13 Ratio (12-20); Bilirubin,Total 0.2 mg/dL (0.3-1.2); Blood Urea Nitrogen 67 mg/dL (9-23); Calcium 9.2 mg/dL (8.3-10.6); Calcium (Corrected) 9.4 mg/dL (8.5-10.1); Carbon Dioxide 23.2 mMol/L (20.0-31.0); Chloride 101 mMol/L (98-107); Creatinine (Component) 5.1 mg/dL (0.6-1.3); Globulin 3.1 gm/dL (2.3-3.5); Glucose 84 mg/dL (74-106); Osmolality,Calculated 288 (275-295); Sodium 135 mMol/L (136-145); Total Protein 6.8 gm/dL (5.7-8.2); eGFR 11 See Note
[2025-04-05 11:59] LABS: Potassium 6.2 mMol/L (3.4-5.1)
[2025-04-05 14:00] LABS: Basophils # (Auto) 0.0 Thou/mm3 (0.0-0.2); Basophils % (Auto) 0 % (0-2.5); Eosinophils # (Auto) 0.0 Thou/mm3 (0.0-0.5); Eosinophils % (Auto) 2 % (0-10); Hematocrit 31.0 % (41.0-53.0); Hemoglobin 10.4 g/dL (13.5-16.0); Immature Granulocytes Auto 0.02 Thou/mm3 (0.00-0.00); Lymphocytes # (Auto) 0.3 Thou/mm3 (1.0-4.8); Lymphocytes % (Auto) 13 % (10-50); Mean Corpuscular HGB Conc 33.5 g/dl (31.0-37.0); Mean Corpuscular Hemoglobin 33.4 pg (25.0-35.0); Mean Corpuscular Volume 100 fL (80-100); Monocytes # (Auto) 0.4 Thou/mm3 (0.0-0.8); Monocytes % (Auto) 16 % (0-12); Neutrophils # (Auto) 1.6 Thou/mm3 (1.8-7.7); Neutrophils % (Auto) 68 % (37-80); Nucleated Red Blood Cell # 0.00 Thou/mm3 (0.00-0.00); Nucleated Red Blood Cell % 0 /100 WBC (0); Platelet Count 105 Thou/mm3 (140-440); RDW Standard Deviation 62.7 fL (35.1-43.9); Red Blood Count 3.11 Miln/mm3 (4.50-5.90)
[2025-04-05 14:15] LABS: White Blood Count 2.3 Thou/mm3 (3.8-10.6)
== END | disposition home or self-care (01) ==
PROVIDERS: PCP Physician Assistant; Referring Provider Urology; Visit Provider Urology
DX: N32.81 Overactive bladder (principal)
CPT/HCPCS: 36415; 80053; 85025; 85610; 85730